=== PATIENT | female | born 1945 | race Caucasian/White ===

== ENCOUNTER 2016-05-11 14:13 | Outpatient (CLI) | payer MEDICARE, OTHER | END 2016-05-11 14:14 | disposition home or self-care (01) | DX: E11.9 Type 2 diabetes mellitus without complications (principal) ==

== ENCOUNTER 2016-06-06 13:59 | Outpatient (CLI) | payer MEDICARE, OTHER | END 2016-06-06 14:00 | disposition home or self-care (01) | DX: N39.41 Urge incontinence (principal) ==

== ENCOUNTER 2016-07-13 15:24 | Outpatient (CLI) | payer MEDICARE, OTHER | END 2016-07-13 15:25 | disposition home or self-care (01) | DX: N39.41 Urge incontinence (principal) ==

== ENCOUNTER 2016-08-24 14:07 | Outpatient (CLI) | payer MEDICARE, OTHER ==
[2016-08-24 17:30] LABS: HEMOGLOBIN A1C 0.57 g/dL
== END 2016-08-24 14:08 | disposition home or self-care (01) ==
LOC: LAB.F 14:07
PROVIDERS: ATTEND Internal Medicine
DX: E11.9 Type 2 diabetes mellitus without complications (principal)
CPT/HCPCS: 36415; 83036

== ENCOUNTER 2016-12-06 14:29 | Outpatient (CLI) | payer MEDICARE, OTHER ==
[2016-12-06 18:41] LABS: HEMOGLOBIN A1C 0.62 g/dL
[2016-12-06 18:42] LABS: BUN - BLOOD UREA NITROGEN 18 mg/dL (6-20); CALCIUM 9.8 mg/dL (8.5-10.3); CARBON DIOXIDE - CO2 27 mmol/L (21-32); CHLORIDE 104 mmol/L (101-111); CHOL/HDL RATIO 3.2 (<4.4); CHOLESTEROL 164 mg/dL; CREATININE 0.9 mg/dL (0.4-1.0); GFR - MDRD 62 (>89); GLUCOSE 98 mg/dL (70-100); HDL CHOLESTEROL 51 mg/dL; LDL/HDL RATIO 1.6 (<4.4); POTASSIUM 4.1 mmol/L (3.5-5.0); SODIUM 139 mmol/L (135-145); TRIGLYCERIDES 166 mg/dL; VLDL CHOLESTEROL 33 mg/dL
== END 2016-12-06 14:30 | disposition home or self-care (01) ==
LOC: LAB.F 14:29
PROVIDERS: ATTEND Internal Medicine
DX: E11.9 Type 2 diabetes mellitus without complications (principal); E78.00 Pure hypercholesterolemia, unspecified; E03.9 Hypothyroidism, unspecified
CPT/HCPCS: 36415; 80048; 80061; 83036; 84443

== ENCOUNTER 2017-01-11 08:00 | Outpatient (CLI) | payer MEDICARE, OTHER ==
[2017-01-11 18:01] LABS: CALCIUM 9.8 mg/dL (8.5-10.3); CREATININE 1.1 mg/dL (0.4-1.0); POTASSIUM 3.8 mmol/L (3.5-5.0)
== END 2017-01-11 08:01 | disposition home or self-care (01) ==
LOC: LAB.F 08:00
PROVIDERS: ATTEND Internal Medicine
DX: I10 Essential (primary) hypertension (principal)
CPT/HCPCS: 36415; 80048

== ENCOUNTER 2017-03-21 13:00 | Outpatient (CLI) | payer MEDICARE, OTHER | END 2017-03-21 13:01 | disposition home or self-care (01) | LOC: DI 13:00 | PROVIDERS: ATTEND Family Medicine | DX: R55 Syncope and collapse (principal) | CPT/HCPCS: 93306 ==

== ENCOUNTER 2017-10-11 08:45 | Outpatient (CLI) | payer MEDICARE, OTHER ==
[2017-10-11 09:12] LABS: BASOPHILS % (AUTO) 0.6 %; EOSINOPHILS # (AUTO) 0.2 10^3/uL (0.0-0.7); EOSINOPHILS % (AUTO) 2.2 %; HGB - HEMOGLOBIN 13.1 g/dL (12.0-16.0); LYMPHOCYTES # (AUTO) 1.8 10^3/uL (1.5-3.5); LYMPHOCYTES % (AUTO) 25.2 %; MEAN CORPUSCULAR HEMOGLOBIN 31.9 pg (27.0-31.0); MEAN CORPUSCULAR HGB CONC 32.9 g/dL (32.0-36.0); MEAN PLATELET VOLUME 9.8 fL (7.9-10.8); MONOCYTES # (AUTO) 0.5 10^3/uL (0.0-1.0); MONOCYTES % (AUTO) 6.4 %; NEUTROPHILS # (AUTO) 4.6 10^3/uL (1.5-6.6); NEUTROPHILS % (AUTO) 65.6 %; PLT - PLATELET COUNT 201 10^3/uL (130-450); RED CELL DISTRIBUTION WIDTH 14.5 % (12.0-15.0)
[2017-10-11 09:26] LABS: HB2 TOTAL 14.1 g/dL; HEMOGLOBIN A1C 0.66 g/dL; HEMOGLOBIN A1C % 6.4 % (4.6-6.2)
[2017-10-11 10:22] LABS: ALBUMIN 4.1 g/dL (3.2-5.5); ALBUMIN/GLOBULIN RATIO 1.4 (1.0-2.2); CALCIUM 9.5 mg/dL (8.5-10.3); CREATININE 0.9 mg/dL (0.4-1.0); TOTAL PROTEIN 7.1 g/dL (6.7-8.2)
== END 2017-10-11 08:46 | disposition home or self-care (01) ==
LOC: LAB 08:45
PROVIDERS: ATTEND Family Medicine
DX: I10 Essential (primary) hypertension (principal); E11.9 Type 2 diabetes mellitus without complications
CPT/HCPCS: 36415; 80053; 83036; 85025

== ENCOUNTER 2017-12-05 13:51 | Outpatient (CLI) | payer MEDICARE, OTHER ==
--- NOTE | 2017-12-06 15:57 | Mammography Report ---
Reason: SCREENING MAMMO Procedure Date: 12/05/2017 Accession Number: [id number] / [id number] Procedure: JOHN - Screening Mammo Dig Bilat CPT Code: FULL RESULT: EXAM: Screening Mammo Dig Bilat DATE: 12/05/2017 2:10 PM CLINICAL HISTORY: Screening mammogram TECHNIQUE: Bilateral CC and MLO views were obtained. COMPARISON: None FINDINGS: There are scattered fibroglandular densities. A nodule in the upper outer quadrant of the right breast is favored to represent an intramammary lymph node. No suspicious masses, clustered microcalcifications, or regions of architectural distortion are identified. IMPRESSION: Benign findings RECOMMENDATION: Routine annual screening unless otherwise clinically indicated. BIRADS CATEGORY 2: Benign findings STANDARD QUALIFYING STATEMENTS: 1. This examination was reviewed with the aid of Computer-Aided Detection (CAD). 2. A negative or benign imaging report should not delay biopsy if clinically suspicious findings are present. Consider surgical consultation if warrented. More than 5% of cancers are not identified by imaging. 3. Dense breasts may obscure an underlying neoplasm.
== END 2017-12-05 13:52 | disposition home or self-care (01) ==
LOC: DI 13:51
PROVIDERS: ATTEND Radiology Diagnostic Radiology
DX: Z12.31 Encounter for screening mammogram for malignant neoplasm of breast (principal)
CPT/HCPCS: 77067

== ENCOUNTER 2018-05-17 10:39 | Outpatient (CLI) | payer MEDICARE, OTHER ==
[2018-05-17 18:18] LABS: BASOPHILS % (AUTO) 0.6 %; EOSINOPHILS # (AUTO) 0.1 10^3/uL (0.0-0.7); EOSINOPHILS % (AUTO) 1.7 %; HGB - HEMOGLOBIN 13.8 g/dL (12.0-16.0); LYMPHOCYTES # (AUTO) 1.6 10^3/uL (1.5-3.5); LYMPHOCYTES % (AUTO) 23.4 %; MEAN CORPUSCULAR HEMOGLOBIN 32.1 pg (27.0-31.0); MEAN CORPUSCULAR HGB CONC 32.7 g/dL (32.0-36.0); MEAN PLATELET VOLUME 10.8 fL (7.9-10.8); MONOCYTES # (AUTO) 0.5 10^3/uL (0.0-1.0); MONOCYTES % (AUTO) 7.3 %; NEUTROPHILS # (AUTO) 4.7 10^3/uL (1.5-6.6); PLT - PLATELET COUNT 204 10^3/uL (130-450); RED BLOOD COUNT 4.31 10^6/uL (4.20-5.40); RED CELL DISTRIBUTION WIDTH 15.2 % (12.0-15.0)
[2018-05-17 18:56] LABS: ALBUMIN 4.5 g/dL (3.2-5.5); ALBUMIN/GLOBULIN RATIO 1.4 (1.0-2.2); ALKALINE PHOSPHATASE 52 IU/L (42-121); ALT ALANINE AMINOTRANSFERASE 25 IU/L (10-60); AST ASPARTATE AMINOTRANSFERASE 27 IU/L (10-42); BILIRUBIN,TOTAL 0.8 mg/dL (0.2-1.0); BUN - BLOOD UREA NITROGEN 17 mg/dL (6-20); CARBON DIOXIDE - CO2 30 mmol/L (21-32); CHLORIDE 103 mmol/L (101-111); CHOL/HDL RATIO 2.5 (<4.4); CHOLESTEROL 152 mg/dL; CREATININE 0.9 mg/dL (0.4-1.0); GFR - MDRD 61 (>89); GLUCOSE 111 mg/dL (70-100); HDL CHOLESTEROL 61 mg/dL; LDL CHOLESTEROL,CALCULATED 71 mg/dL; LDL/HDL RATIO 1.2 (<4.4); SODIUM 142 mmol/L (135-145); TOTAL PROTEIN 7.7 g/dL (6.7-8.2); VLDL CHOLESTEROL 20 mg/dL
[2018-05-17 20:20] LABS: HB2 TOTAL 15.2 g/dL; HEMOGLOBIN A1C 0.64 g/dL
== END 2018-05-17 10:40 | disposition home or self-care (01) ==
LOC: LAB.F 10:39
PROVIDERS: ATTEND Family Medicine
DX: I10 Essential (primary) hypertension (principal); E78.00 Pure hypercholesterolemia, unspecified; E11.9 Type 2 diabetes mellitus without complications; E03.9 Hypothyroidism, unspecified; W54.0XXA Bitten by dog, initial encounter
CPT/HCPCS: 36415; 80053; 80061; 82043; 82570; 83036; 83721; 84443; 85025

== ENCOUNTER 2018-05-21 10:18 | Outpatient (CLI) | payer MEDICARE, OTHER ==
[2018-05-21 11:02] LABS: CREATININE,URINE 46.2 mg/dL; MICROALBUM/CREATININE RATIO,UR 17.3 ug/mg (<30.0); MICROALBUMIN,URINE 0.8 mg/dL (0-300.0)
== END 2018-05-21 10:19 | disposition home or self-care (01) ==
LOC: LAB 10:18
PROVIDERS: ATTEND Family Medicine
DX: I10 Essential (primary) hypertension (principal); E78.00 Pure hypercholesterolemia, unspecified; E11.9 Type 2 diabetes mellitus without complications
CPT/HCPCS: 82043; 82570

== ENCOUNTER 2018-12-26 15:07 | Outpatient (CLI) | payer MEDICARE, OTHER ==
--- NOTE | 2018-12-27 09:29 | Mammography Report ---
Reason: SCREENING MAMMO Procedure Date: 12/26/2018 Accession Number: [id number] / [id number] Procedure: JOHN - Screening Mammo w/Wenceslao CPT Code: FULL RESULT: EXAM: Screening Mammo w/Wenceslao DATE: 12/26/2018 3:45 PM CLINICAL HISTORY: Screening. TECHNIQUE: (B) - Bilateral CC and MLO views were obtained. COMPARISON: 12/05/2017, 11/26/2014 PARENCHYMAL PATTERN: (A) - The breasts demonstrate scattered fibroglandular densities bilaterally. FINDINGS: There are no suspicious masses, calcifications, or areas of distortion. IMPRESSION: Negative examination. BI-RADS category 1. RECOMMENDATION: (ANNUAL) - Recommend routine annual screening mammography. BI-RADS CATEGORY: (1) - Negative. STANDARD QUALIFYING STATEMENTS: 1. This examination was not reviewed with the aid of Computer-Aided Detection (CAD). 2. A negative or benign imaging report should not preclude biopsy if clinically suspicious findings are present. 3. Dense breasts may obscure an underlying neoplasm. 4. This examination was reviewed with the aid of 3D breast imaging (tomosynthesis).
== END 2018-12-26 15:08 | disposition home or self-care (01) ==
LOC: DI 15:07
DX: Z12.31 Encounter for screening mammogram for malignant neoplasm of breast (principal)
CPT/HCPCS: 77063; 77067

== ENCOUNTER 2019-09-01 09:18 | Outpatient (CLI) | payer MEDICARE, OTHER ==
[2019-09-01 09:36] LABS: BASOPHILS # (AUTO) 0.1 10^3/uL (0.0-0.1); EOSINOPHILS # (AUTO) 0.2 10^3/uL (0.0-0.7); EOSINOPHILS % (AUTO) 3.4 %; HGB - HEMOGLOBIN 13.6 g/dL (12.0-16.0); LYMPHOCYTES # (AUTO) 1.8 10^3/uL (1.5-3.5); LYMPHOCYTES % (AUTO) 34.4 %; MEAN CORPUSCULAR HEMOGLOBIN 32.3 pg (27.0-31.0); MEAN CORPUSCULAR HGB CONC 32.7 g/dL (32.0-36.0); MEAN CORPUSCULAR VOLUME 98.8 fL (81.0-99.0); MEAN PLATELET VOLUME 10.7 fL (7.9-10.8); MONOCYTES # (AUTO) 0.4 10^3/uL (0.0-1.0); MONOCYTES % (AUTO) 7.8 %; NEUTROPHILS # (AUTO) 2.8 10^3/uL (1.5-6.6); NEUTROPHILS % (AUTO) 53.2 %; PLT - PLATELET COUNT 195 10^3/uL (130-450); RED BLOOD COUNT 4.21 10^6/uL (4.20-5.40); RED CELL DISTRIBUTION WIDTH 14.7 % (12.0-15.0); WHITE BLOOD COUNT 5.2 x10^3/uL (4.8-10.8)
[2019-09-01 09:56] LABS: ALBUMIN 4.2 g/dL (3.2-5.5); ALBUMIN/GLOBULIN RATIO 1.3 (1.0-2.2); ALKALINE PHOSPHATASE 48 IU/L (42-121); ALT ALANINE AMINOTRANSFERASE 31 IU/L (10-60); AST ASPARTATE AMINOTRANSFERASE 26 IU/L (10-42); BILIRUBIN,TOTAL 0.8 mg/dL (0.2-1.0); BUN - BLOOD UREA NITROGEN 17 mg/dL (6-20); CALCIUM 9.4 mg/dL (8.5-10.3); CARBON DIOXIDE - CO2 28 mmol/L (21-32); CHLORIDE 100 mmol/L (101-111); CHOL/HDL RATIO 2.8 (<4.4); CHOLESTEROL 150 mg/dL; GLUCOSE 117 mg/dL (70-100); HDL CHOLESTEROL 54 mg/dL; HEMOGLOBIN A1C 0.67 g/dL; HEMOGLOBIN A1C % 6.5 % (4.6-6.2); LDL CHOLESTEROL,CALCULATED 69 mg/dL; LDL/HDL RATIO 1.3 (<4.4); SODIUM 138 mmol/L (135-145); TOTAL PROTEIN 7.4 g/dL (6.7-8.2); VLDL CHOLESTEROL 27 mg/dL
== END 2019-09-01 09:19 | disposition home or self-care (01) ==
LOC: LAB 09:18
PROVIDERS: ATTEND Family Medicine
DX: E11.9 Type 2 diabetes mellitus without complications (principal)
CPT/HCPCS: 36415; 80053; 80061; 82043; 83036; 83721; 84443; 85025

== ENCOUNTER 2019-09-19 14:50 | Outpatient (CLI) | payer MEDICARE, OTHER ==
--- NOTE | 2019-09-19 15:42 | XRAY Report ---
PROCEDURE: Chest 2 View X-Ray INDICATIONS: CHEST PAIN, LOW BACK PAIN TECHNIQUE: 2 view(s) of the chest. COMPARISON: None. FINDINGS: Surgical changes and devices: None. Lungs and pleura: No pleural effusions or pneumothorax. Lungs are clear. Mediastinum: Mediastinal contours are normal. Heart size is normal. Bones and chest wall: No suspicious bony abnormalities. Soft tissues appear unremarkable. IMPRESSION: No acute process. Reviewed by: Gricel Saldaña MD on 09/19/2019 3:40 PM PDT Approved by: Gricel Saldaña MD on 09/19/2019 3:40 PM PDT Station ID: [id number]
--- NOTE | 2019-09-19 15:43 | XRAY Report ---
PROCEDURE: Lumbar Spine 2 View INDICATIONS: CHEST PAIN, LOW BACK PAIN TECHNIQUE: 2 views of the lumbar spine were acquired. COMPARISON: None. FINDINGS: Bones: 5 [id number] vertebrae are present. There is mild grade 1 anterolisthesis of L4 on L5. Multilevel disc space narrowing and endplate osteophyte formation. Facet hypertrophy throughout the m id and lower lumbar spine. No vertebral body compression fractures. No suspicious bony lesions. Soft tissues: Overlying bowel gas pattern is normal. No suspicious soft tissue calcifications. IMPRESSION: 1. Multilevel degenerative disc and facet disease. 2. No acute fracture. No osseous lesion. If symptoms and/or clinical suspicion for pathology continue , further assessment with repeat plain films, or advanced imaging (e.g., CT, MRI, or bone scan) is re commended for further assessment. Reviewed by: Gricel Saldaña MD on 09/19/2019 3:42 PM PDT Approved by: Gricel Saldaña MD on 09/19/2019 3:42 PM PDT Station ID: [id number]
== END 2019-09-19 14:51 | disposition home or self-care (01) ==
LOC: DI 14:50
PROVIDERS: ATTEND Family Medicine
DX: M51.36 Other intervertebral disc degeneration, lumbar region (principal); R07.9 Chest pain, unspecified
CPT/HCPCS: 71046; 72100

== ENCOUNTER 2019-10-17 15:50 | Outpatient (CLI) | payer MEDICARE, OTHER ==
--- NOTE | 2019-10-17 17:19 | MRI Report ---
PROCEDURE: Brain W/O INDICATIONS: TREMOR TECHNIQUE: Noncontrast axial T1 spin echo, axial T2 fast spin echo, sagittal and axial FLAIR, coronal T2 fast sp in echo, axial gradient echo, axial diffusion and ADC through the brain. COMPARISON: None. FINDINGS: Image quality: Excellent. CSF Spaces: Basal cisterns are patent. No extra-axial fluid collections. Ventricles are normal in size and shape. Brain: No intracranial masses or hemorrhage. Alvarez/white matter interface is normal. Brainstem appe ars normal. Diffusion-weighted images demonstrate no acute ischemic insult. No chronic ischemic ins ults. Normal intravascular flow voids are present. Skull and face: Calvarium has normal marrow signal. Orbits appear normal. There is a well-circumsc ribed bilobular 20 mm low T2 intensity focus within the subcutaneous fat of the left superior parieta l scalp, consistent with a mild diffuse cerebral volume loss. Sebaceous cyst. Sinuses: Sinuses and mastoids are clear. IMPRESSION: 1. Mild diffuse cerebral volume loss. 2. No acute process. No recent infarct. Reviewed by: Gricel Saldaña MD on 10/17/2019 4:17 PM AKDT Approved by: Gricel Saldaña MD on 10/17/2019 4:17 PM AKDT Station ID: [id number]
== END 2019-10-17 15:51 | disposition home or self-care (01) ==
LOC: DI 15:50
PROVIDERS: ATTEND Psychiatry & Neurology Neurology
DX: R25.1 Tremor, unspecified (principal)
CPT/HCPCS: 70551

== ENCOUNTER 2019-11-10 16:48 | Outpatient (CLI) | payer MEDICARE, OTHER ==
--- NOTE | 2019-11-10 18:16 | MRI Report ---
PROCEDURE: Cervical Spine W/O INDICATIONS: PARESTHESIA OF SKIN TECHNIQUE: Noncontrast sagittal T1 spin echo and T2 fast spin echo, sagittal STIR, foraminal oblique sagittal T2 fast spin echo, and axial gradient echo or T2 fast spin echo through the cervical spine. COMPARISON: Correlation is made with overlapping portions of brain MRI 10/17/2019. FINDINGS: Image quality: Motion artifact is noted. Alignment and Curvature: There is overall straightening of the normal cervical lordosis. Bone Marrow: Marrow demonstrates normal overall signal. Spinal Cord: Visualized spinal cord has normal size and signal. No cerebellar tonsillar herniation. Paraspinous Soft Tissues: No paravertebral masses. Prevertebral soft tissues are normal in thicknes s. Left thyroid nodules are incidentally noted, with the largest measuring 12 mm, as on series 601 im age 1. C2-C3: No significant abnormality is seen. C3-C4: The disc height is well-preserved. There is loss of disc signal seen. Mild disc osteophy te complex is seen. There is mild right-sided and prominent left-sided facet hypertrophy seen. Ther e is moderate to severe left-sided and mild right-sided neuroforaminal narrowing seen. Mild central canal narrowing is seen. C4-C5: Mild loss of disc height and disc signal are seen. Mild to moderate disc osteophyte complex i s seen. There is mild right-sided and moderate to prominent left-sided facet hypertrophy seen. There is mild left-sided and [id number] right-sided neuroforaminal narrowing seen. Mild to moderate c entral canal narrowing is seen. C5-C6: Mild to moderate loss of disc height and disc signal are seen. Bridging anterior osteophytes are seen. Moderate to prominent disc osteophyte complex is seen, with a central/right disc osteophy te protrusion, as on series 601 images 12 and 13. There is associated moderate to severe central fani l narrowing seen, with ventral cord flattening. Moderate to severe bilateral neuroforaminal narrowing is also seen at this level. C6-C7: Mild loss of disc height and disc signal are seen. Bridging anterior osteophytes are seen. M oderate to prominent disc osteophyte complex is seen, which is eccentric to the left. There is a cent ral disc osteophyte protrusion seen, severe central canal narrowing and ventral cord flattening, as o n series 701 image 9 and on series 601 image 9. Mild facet hypertrophy is seen. Moderate to severe bilateral neuroforaminal narrowing is seen. C7-T1: The disc height is well-preserved. There is loss of disc signal seen. Mild disc osteophyte co mplex is seen, which is slightly eccentric to the right. Mild to moderate facet hypertrophy is seen. There is moderate bilateral neuroforaminal narrowing seen. Mild central canal narrowing is seen. IMPRESSION: Multiple levels of cervical spine degenerative change are seen, which are most prominent at the C6-C7 level, where there is moderate to severe bilateral neuroforaminal narrowing and severe central canal narrowing present. Incidental note is made of a left-sided thyroid nodules. If clinically appropriate, please consider a dedicated thyroid ultrasound for further evaluation. Reviewed by: Isaiah Britton MD on 11/10/2019 5:15 PM MARQUES Approved by: Isaiah Britton MD on 11/10/2019 5:15 PM MARQUES Station ID: [id number]
== END 2019-11-10 16:49 | disposition home or self-care (01) ==
LOC: DI 16:48
PROVIDERS: ATTEND Psychiatry & Neurology Neurology
DX: M50.31 Other cervical disc degeneration, high cervical region (principal); M47.812 Spondylosis without myelopathy or radiculopathy, cervical region; M48.02 Spinal stenosis, cervical region; M25.78 Osteophyte, vertebrae
CPT/HCPCS: 72141

== ENCOUNTER 2019-11-11 12:26 | Outpatient (CLI) | payer MEDICARE, OTHER ==
[2019-11-11 12:53] LABS: BASOPHILS # (AUTO) 0.1 10^3/uL (0.0-0.1); BASOPHILS % (AUTO) 0.8 %; EOSINOPHILS # (AUTO) 0.4 10^3/uL (0.0-0.7); EOSINOPHILS % (AUTO) 5.6 %; HGB - HEMOGLOBIN 13.6 g/dL (12.0-16.0); LYMPHOCYTES # (AUTO) 2.2 10^3/uL (1.5-3.5); LYMPHOCYTES % (AUTO) 30.3 %; MEAN CORPUSCULAR HGB CONC 33.6 g/dL (32.0-36.0); MEAN CORPUSCULAR VOLUME 98.3 fL (81.0-99.0); MEAN PLATELET VOLUME 10.9 fL (7.9-10.8); MONOCYTES # (AUTO) 0.5 10^3/uL (0.0-1.0); MONOCYTES % (AUTO) 7.4 %; NEUTROPHILS % (AUTO) 55.6 %; PLT - PLATELET COUNT 226 10^3/uL (130-450); RED BLOOD COUNT 4.12 10^6/uL (4.20-5.40); RED CELL DISTRIBUTION WIDTH 14.8 % (12.0-15.0); WHITE BLOOD COUNT 7.2 x10^3/uL (4.8-10.8)
[2019-11-11 12:58] LABS: INR 1.1 (0.8-1.2); PT - PROTHROMBIN TIME 12.2 secs (9.9-12.6)
[2019-11-11 13:02] LABS: CALCIUM 9.6 mg/dL (8.5-10.3)
== END 2019-11-11 12:27 | disposition home or self-care (01) ==
LOC: LAB 12:26
PROVIDERS: ATTEND Internal Medicine Cardiovascular Disease
DX: R07.9 Chest pain, unspecified (principal); R94.39 Abnormal result of other cardiovascular function study
CPT/HCPCS: 36415; 80048; 85025; 85610

== ENCOUNTER 2019-11-17 10:57 | Outpatient (CLI) | payer MEDICARE, OTHER ==
[2019-11-17 11:20] LABS: CALCIUM 9.9 mg/dL (8.5-10.3)
== END 2019-11-17 10:58 | disposition home or self-care (01) ==
LOC: LAB 10:57
PROVIDERS: ATTEND Family Medicine
DX: I10 Essential (primary) hypertension (principal)
CPT/HCPCS: 36415; 80048

== ENCOUNTER 2020-01-02 14:53 | Outpatient (CLI) | payer MEDICARE, OTHER ==
--- NOTE | 2020-01-02 17:38 | Ultrasound Report ---
PROCEDURE: Head or Neck Soft Tissue INDICATIONS: THYROID NODULE TECHNIQUE: Real-time scanning was performed of the thyroid gland, with image documentation. COMPARISON: None FINDINGS: Right: Thyroid lobe measures 6.7 x 1.8 x 1.5 cm, and is homogeneous in echotexture. Left: Thyroid lobe measures 6.5 x 2.5 x 2.1 cm, and is homogenous in echotexture. Isthmus: 6 mm thick. Nodule number: One Location: Right lobe Size: 0.8 x 0.7 x 0.7 cm. Composition: Solid Echogenicity: Isoechoic Shape: wider than tall. Margins: Smooth Echogenic foci: None Total points: 3 ACR TI-RADS category: 3 Nodule number: Two Location: Left lobe Size: 1.5 x 1.0 x 1.3 cm. Composition: Solid Echogenicity: Hypoechoic Shape: wider than tall. Margins: Smooth Echogenic foci: None Total points: 4 ACR TI-RADS category: 4 Nodule number: Three Location: Left lobe Size: 2.1 x 1.4 x 2.2 cm. Composition: Solid Echogenicity: Isoechoic Shape: wider than tall. Margins: Smooth Echogenic foci: None Total points: 3 ACR TI-RADS category: 3 IMPRESSION: 1. Right thyroid lobe subcentimeter TI RADS 3 lesion. Mildly suspicious. No follow-up recommended giv en small size. 2. Left thyroid lobe TI RADS 4 lesion. Moderately suspicious. FNA recommended given size at 1.5 cm. 3. Left thyroid lobe TI RADS 4 lesion. Moderately suspicious. FNA recommended given size at 2.2 cm. ACR TI-RADS definitions and recommendations: TI-RADS 1 (benign): 0 points. FNA not needed. TI-RADS 2 (not suspicious): 2 points. FNA not needed. TI-RADS 3 (mildly suspicious): 3 points. ? FNA if 2.5 cm or larger, follow up if 1.5 cm or larger (at 1, 3, and 5 years). TI-RADS 4 (moderately suspicious): 4-6 points. ? FNA if 1.5 cm or larger, follow up if 1 cm or larger (at 1, 2, 3, and 5 years). TI-RADS 5 (highly suspicious): 7 points or more. ? FNA if 1 cm or larger, follow up if 0.5 cm or larger (every year for 5 years). Reviewed by: Rhea Stovall MD on 01/02/2020 5:36 PM PDT Approved by: Rhea Stovall MD on 01/02/2020 5:36 PM PDT Station ID: [id number]
== END 2020-01-02 14:54 | disposition home or self-care (01) ==
LOC: DI 14:53
PROVIDERS: ATTEND Family Medicine
DX: E04.2 Nontoxic multinodular goiter (principal)
CPT/HCPCS: 76536

== ENCOUNTER 2020-01-27 08:00 | Outpatient (CLI) | payer MEDICARE, OTHER ==
[2020-01-27 18:04] LABS: CALCIUM 9.7 mg/dL (8.5-10.3); CREATININE 1.1 mg/dL (0.4-1.0)
== END 2020-01-27 08:01 | disposition home or self-care (01) ==
LOC: LAB.WCP 08:00
PROVIDERS: ATTEND Family Medicine
DX: I10 Essential (primary) hypertension (principal)
CPT/HCPCS: 36415; 80048

== ENCOUNTER 2020-07-15 09:52 | Outpatient (CLI) | payer MEDICARE, OTHER ==
[2020-07-15 10:18] LABS: BASOPHILS # (AUTO) 0.1 10^3/uL (0.0-0.1); BASOPHILS % (AUTO) 0.8 %; EOSINOPHILS # (AUTO) 0.2 10^3/uL (0.0-0.7); EOSINOPHILS % (AUTO) 3.2 %; HCT - HEMATOCRIT 37.9 % (37.0-47.0); HGB - HEMOGLOBIN 12.4 g/dL (12.0-16.0); LYMPHOCYTES # (AUTO) 1.7 10^3/uL (1.5-3.5); MEAN CORPUSCULAR HEMOGLOBIN 32.9 pg (27.0-31.0); MEAN CORPUSCULAR HGB CONC 32.7 g/dL (32.0-36.0); MEAN CORPUSCULAR VOLUME 100.5 fL (81.0-99.0); MEAN PLATELET VOLUME 10.7 fL (7.9-10.8); MONOCYTES # (AUTO) 0.5 10^3/uL (0.0-1.0); MONOCYTES % (AUTO) 7.5 %; NEUTROPHILS # (AUTO) 3.6 10^3/uL (1.5-6.6); NEUTROPHILS % (AUTO) 60.3 %; PLT - PLATELET COUNT 204 10^3/uL (130-450); RED BLOOD COUNT 3.77 10^6/uL (4.20-5.40); RED CELL DISTRIBUTION WIDTH 14.6 % (12.0-15.0)
[2020-07-15 10:36] LABS: ALBUMIN 4.4 g/dL (3.2-5.5); ALBUMIN/GLOBULIN RATIO 1.5 (1.0-2.2); ALKALINE PHOSPHATASE 49 IU/L (42-121); ALT ALANINE AMINOTRANSFERASE 26 IU/L (10-60); AST ASPARTATE AMINOTRANSFERASE 24 IU/L (10-42); BILIRUBIN,TOTAL 0.9 mg/dL (0.2-1.0); BUN - BLOOD UREA NITROGEN 19 mg/dL (6-20); CALCIUM 9.8 mg/dL (8.5-10.3); CARBON DIOXIDE - CO2 25 mmol/L (21-32); CHLORIDE 102 mmol/L (101-111); CHOL/HDL RATIO 2.7 (<4.4); CHOLESTEROL 134 mg/dL; CREATININE 1.2 mg/dL (0.4-1.0); GFR - MDRD 44 (>89); GLUCOSE 110 mg/dL (70-100); HDL CHOLESTEROL 49 mg/dL; LDL CHOLESTEROL,CALCULATED 69 mg/dL; LDL/HDL RATIO 1.4 (<4.4); POTASSIUM 4.5 mmol/L (3.5-5.0); SODIUM 138 mmol/L (135-145); TOTAL PROTEIN 7.3 g/dL (6.7-8.2); TRIGLYCERIDES 82 mg/dL; VLDL CHOLESTEROL 16 mg/dL
[2020-07-15 10:37] LABS: ESTIMATED AVERAGE GLUCOSE 128 mg/dL (70-100); HEMOGLOBIN A1c% 6.1 % (4.27-6.07)
[2020-07-15 10:39] LABS: CREATININE,URINE 84.4 mg/dL; MICROALBUM/CREATININE RATIO,UR 30.8 ug/mg (<30.0); MICROALBUMIN,URINE 2.6 mg/dL (0-300.0)
[2020-07-15 10:49] LABS: THYROID STIMULATING HORMONE 2.41 uIU/mL (0.34-5.60)
== END 2020-07-15 09:53 | disposition home or self-care (01) ==
LOC: LAB 09:52
PROVIDERS: ATTEND Family Medicine
DX: I10 Essential (primary) hypertension (principal); E78.5 Hyperlipidemia, unspecified; E11.9 Type 2 diabetes mellitus without complications; E03.9 Hypothyroidism, unspecified
CPT/HCPCS: 36415; 80053; 80061; 82043; 82570; 83036; 83721; 84443; 85025

== ENCOUNTER 2020-09-14 13:01 | Outpatient (CLI) | payer MEDICARE, OTHER ==
--- NOTE | 2020-09-15 13:24 | Mammography Report ---
BILATERAL DIGITAL SCREENING MAMMOGRAM 3D/2D: 09/14/2020 CLINICAL: Routine screening. Comparison is made to exams dated: 12/26/2018 mammogram, 12/05/2017 mammogram, and 12/20/2015 mammogram - [facility]. There are scattered fibroglandular elements in both breasts. No significant masses, calcifications, or other findings are seen in either breast. There has been no significant interval change. IMPRESSION: NEGATIVE There is no mammographic evidence of malignancy. A 1 year screening mammogram is recommended. This exam was interpreted at Station ID: [id number]. NOTE: For mammograms, a report in lay terms will be sent to the patient. Approximately 15% of breast malignancies will not be visualized mammographically. In the management of a palpable breast mass, a negative mammogram must not discourage biopsy of a clinically suspicious lesion. Electronically Signed By: Edin Marte M.D. ar/vyrad:09/14/2020 13:39:11 ACR BI-RADS Category 1: Negative [id number] PARENCHYMAL PATTERN: (A) - The breast(s) demonstrate(s) scattered fibroglandular densities. BI-RADS CATEGORY: (1) - 1 RECOMMENDATION: (ANNUAL) - Recommend routine annual screening mammography. [id number] 1 year screening LATERALITY: (B)
== END 2020-09-14 13:02 | disposition home or self-care (01) ==
LOC: DI 13:01
DX: Z12.31 Encounter for screening mammogram for malignant neoplasm of breast (principal)

== ENCOUNTER 2020-10-04 08:00 | Outpatient (CLI) | payer MEDICARE, OTHER | END 2020-10-04 23:59 | disposition home or self-care (01) | LOC: LAB.S 08:00 | PROVIDERS: ATTEND Physician Assistant | DX: R31.9 Hematuria, unspecified (principal) | CPT/HCPCS: 87077; 87086; 87181 ==

== ENCOUNTER 2021-01-06 10:12 | Outpatient (CLI) | payer MEDICARE, OTHER ==
[2021-01-06 14:44] LABS: BASOPHILS % (AUTO) 0.5 %; EOSINOPHILS # (AUTO) 0.1 10^3/uL (0.0-0.7); EOSINOPHILS % (AUTO) 1.5 %; HCT - HEMATOCRIT 39.5 % (37.0-47.0); HGB - HEMOGLOBIN 12.8 g/dL (12.0-16.0); LYMPHOCYTES # (AUTO) 1.7 10^3/uL (1.5-3.5); LYMPHOCYTES % (AUTO) 23.7 %; MEAN CORPUSCULAR HEMOGLOBIN 32.3 pg (27.0-31.0); MEAN CORPUSCULAR HGB CONC 32.4 g/dL (32.0-36.0); MEAN CORPUSCULAR VOLUME 99.7 fL (81.0-99.0); MONOCYTES # (AUTO) 0.4 10^3/uL (0.0-1.0); PLT - PLATELET COUNT 213 10^3/uL (130-450); RED BLOOD COUNT 3.96 10^6/uL (4.20-5.40); RED CELL DISTRIBUTION WIDTH 15.4 % (12.0-15.0); WHITE BLOOD COUNT 7.3 x10^3/uL (4.8-10.8)
[2021-01-06 15:12] LABS: ALBUMIN 4.4 g/dL (3.2-5.5); ALBUMIN/GLOBULIN RATIO 1.5 (1.0-2.2); ALKALINE PHOSPHATASE 55 IU/L (42-121); ALT ALANINE AMINOTRANSFERASE 26 IU/L (10-60); AST ASPARTATE AMINOTRANSFERASE 24 IU/L (10-42); BILIRUBIN,TOTAL 0.8 mg/dL (0.2-1.0); BUN - BLOOD UREA NITROGEN 21 mg/dL (6-20); CALCIUM 9.9 mg/dL (8.5-10.3); CARBON DIOXIDE - CO2 28 mmol/L (21-32); CHLORIDE 101 mmol/L (101-111); CHOL/HDL RATIO 2.8 (<4.4); CHOLESTEROL 138 mg/dL; CREATININE 1.1 mg/dL (0.4-1.0); GFR - MDRD 48 (>89); GLUCOSE 108 mg/dL (70-100); HDL CHOLESTEROL 50 mg/dL; LDL CHOLESTEROL,CALCULATED 71 mg/dL; LDL/HDL RATIO 1.4 (<4.4); POTASSIUM 4.2 mmol/L (3.5-5.0); SODIUM 139 mmol/L (135-145); TOTAL PROTEIN 7.4 g/dL (6.7-8.2); TRIGLYCERIDES 83 mg/dL; VLDL CHOLESTEROL 17 mg/dL
[2021-01-06 15:17] LABS: THYROID STIMULATING HORMONE 2.21 uIU/mL (0.34-5.60)
[2021-01-06 20:51] LABS: ESTIMATED AVERAGE GLUCOSE 123 mg/dL (70-100); HEMOGLOBIN A1c% 5.9 % (4.27-6.07)
== END 2021-01-06 10:13 | disposition home or self-care (01) ==
LOC: LAB.S 10:12
PROVIDERS: ATTEND Family Medicine
DX: E11.9 Type 2 diabetes mellitus without complications (principal); E03.9 Hypothyroidism, unspecified
CPT/HCPCS: 36415; 80053; 80061; 82607; 83036; 83721; 84443; 85025

== ENCOUNTER 2021-05-12 08:00 | Outpatient (CLI) | payer MEDICARE, OTHER | END 2021-05-12 23:59 | disposition home or self-care (01) | LOC: LAB.WCP 08:00 | PROVIDERS: ATTEND Nurse Practitioner Family | DX: L72.11 Pilar cyst (principal) | CPT/HCPCS: 87070; 87077; 87181; 87205 ==

== ENCOUNTER 2021-07-09 09:42 | Outpatient (CLI) | payer MEDICARE, OTHER ==
[2021-07-09 15:32] LABS: BASOPHILS % (AUTO) 0.8 %; EOSINOPHILS # (AUTO) 0.2 10^3/uL (0.0-0.7); EOSINOPHILS % (AUTO) 3.5 %; HCT - HEMATOCRIT 37.3 % (37.0-47.0); HGB - HEMOGLOBIN 12.2 g/dL (12.0-16.0); LYMPHOCYTES # (AUTO) 1.7 10^3/uL (1.5-3.5); LYMPHOCYTES % (AUTO) 35.8 %; MEAN CORPUSCULAR HEMOGLOBIN 32.4 pg (27.0-31.0); MEAN CORPUSCULAR HGB CONC 32.7 g/dL (32.0-36.0); MEAN CORPUSCULAR VOLUME 98.9 fL (81.0-99.0); MEAN PLATELET VOLUME 11.7 fL (7.9-10.8); MONOCYTES # (AUTO) 0.3 10^3/uL (0.0-1.0); NEUTROPHILS # (AUTO) 2.6 10^3/uL (1.5-6.6); NEUTROPHILS % (AUTO) 52.9 %; PLT - PLATELET COUNT 228 10^3/uL (130-450); RED BLOOD COUNT 3.77 10^6/uL (4.20-5.40); RED CELL DISTRIBUTION WIDTH 14.8 % (12.0-15.0); WHITE BLOOD COUNT 4.9 x10^3/uL (4.8-10.8)
[2021-07-09 15:58] LABS: ALBUMIN 4.1 g/dL (3.2-5.5); ALBUMIN/GLOBULIN RATIO 1.5 (1.0-2.2); ALKALINE PHOSPHATASE 46 IU/L (42-121); ALT ALANINE AMINOTRANSFERASE 25 IU/L (10-60); AST ASPARTATE AMINOTRANSFERASE 24 IU/L (10-42); BILIRUBIN,TOTAL 0.5 mg/dL (0.2-1.0); BUN - BLOOD UREA NITROGEN 23 mg/dL (6-20); CALCIUM 9.7 mg/dL (8.5-10.3); CARBON DIOXIDE - CO2 27 mmol/L (21-32); CHLORIDE 100 mmol/L (101-111); CHOLESTEROL 164 mg/dL; CREATININE 1.1 mg/dL (0.4-1.0); GFR - MDRD 48 (>89); GLUCOSE 108 mg/dL (70-100); HDL CHOLESTEROL 54 mg/dL; LDL CHOLESTEROL,CALCULATED 86 mg/dL; LDL/HDL RATIO 1.6 (<4.4); POTASSIUM 4.3 mmol/L (3.5-5.0); SODIUM 136 mmol/L (135-145); TOTAL PROTEIN 6.9 g/dL (6.7-8.2); TRIGLYCERIDES 120 mg/dL; VLDL CHOLESTEROL 24 mg/dL
[2021-07-09 16:50] LABS: THYROID STIMULATING HORMONE 2.96 uIU/mL (0.34-5.60)
== END 2021-07-09 09:43 | disposition home or self-care (01) ==
LOC: LAB.S 09:42
PROVIDERS: ATTEND Nurse Practitioner Family
DX: I10 Essential (primary) hypertension (principal); E78.5 Hyperlipidemia, unspecified; E11.9 Type 2 diabetes mellitus without complications; E03.9 Hypothyroidism, unspecified
CPT/HCPCS: 36415; 80053; 80061; 81599; 83036; 83721; 84443; 85025

== ENCOUNTER 2021-09-26 13:29 | Inpatient (IN) | payer MEDICARE, OTHER ==
[2021-09-26 14:13] LABS: BASOPHILS # (AUTO) 0.1 10^3/uL (0.0-0.1); BASOPHILS % (AUTO) 0.6 %; EOSINOPHILS # (AUTO) 0.5 10^3/uL (0.0-0.7); EOSINOPHILS % (AUTO) 5.2 %; HCT - HEMATOCRIT 29.5 % (37.0-47.0); HGB - HEMOGLOBIN 10.3 g/dL (12.0-16.0); LYMPHOCYTES % (AUTO) 11.7 %; MEAN CORPUSCULAR HGB CONC 34.9 g/dL (32.0-36.0); MEAN CORPUSCULAR VOLUME 91.6 fL (81.0-99.0); MEAN PLATELET VOLUME 9.7 fL (7.9-10.8); MONOCYTES # (AUTO) 0.8 10^3/uL (0.0-1.0); MONOCYTES % (AUTO) 8.6 %; NEUTROPHILS # (AUTO) 6.6 10^3/uL (1.5-6.6); NEUTROPHILS % (AUTO) 73.5 %; PLT - PLATELET COUNT 265 10^3/uL (130-450); RED BLOOD COUNT 3.22 10^6/uL (4.20-5.40); WHITE BLOOD COUNT 8.9 x10^3/uL (4.8-10.8)
--- NOTE | 2021-09-26 14:22 | XRAY Report ---
PROCEDURE: Ribs w/PA Chest LT INDICATIONS: pain to left side ribs TECHNIQUE: 3 views of the left ribs were acquired, along with a single view chest. COMPARISON: None FINDINGS: Surgical changes and devices: None. Bones and chest wall: No fractures or dislocations. No suspicious bony lesions. Overlying soft tis sues appear unremarkable. Lungs and pleura: No pleural effusions or pneumothorax. Lungs appear clear. Mediastinum: Mediastinal contours appear normal. Heart size is normal. IMPRESSION: No gross displaced left rib fracture is seen. No acute cardiopulmonary pathology. Reviewed by: Noble Longoria MD on 09/26/2021 2:21 PM PDT Approved by: Noble Longoria MD on 09/26/2021 2:21 PM PDT Station ID: [id number]
[2021-09-26 14:39] LABS: ALBUMIN 3.5 g/dL (3.2-5.5); ALBUMIN/GLOBULIN RATIO 1.1 (1.0-2.2); BILIRUBIN,TOTAL 0.6 mg/dL (0.2-1.0); CALCIUM 9.4 mg/dL (8.5-10.3); CREATININE 1.1 mg/dL (0.4-1.0); POTASSIUM 5.2 mmol/L (3.5-5.0); TOTAL PROTEIN 6.8 g/dL (6.7-8.2)
[2021-09-26] MEDS ORDERED: SODIUM CHLORIDE 0.9% 1,000 ML IV STA ×2 (15:23)
--- NOTE | 2021-09-26 15:31 | ED Physician Documentation ---
History of Present Illness - Stated complaint Stated Complaint: GLF - Chief complaint Chief Complaint: Trauma Ch/Bk - History obtained from History obtained from: Patient - History of Present Illness Timing: Last night Pain level max: 6 Pain level now: 5 - Additonal information Additional information: Patient is a 76-year-old female who presents to the emergency department feeling lightheaded and dizzy for the past several days. She is on spironolactone at home for hypertension and recently had this doubled. No chest pain. No shortness of breath. No headache. No neck pain. No numbness or tingling. She states she has just felt "off". No fevers. No chills. No abdominal pain. c/o pain to the L posterior ribs Review of Systems Ten Systems: 10 systems reviewed and negative Constitutional: denies: Fever, Chills Respiratory: denies: Dyspnea, Cough GI: denies: Nausea, Vomiting, Diarrhea Skin: denies: Rash Musculoskeletal: denies: Neck pain, Back pain Neurologic: denies: Headache PD PAST MEDICAL HISTORY - Past Medical History Cardiovascular: Hypertension, High cholesterol Respiratory: Sleep apnea Endocrine/Autoimmune: Type 2 diabetes, HyPOthyroidism GI: Colon polyps : None HEENT: Other Psych: Depression, Anxiety, Claustrophobia Musculoskeletal: Fibromyalgia Derm: Other - Past Surgical History General: Colonoscopy Ortho: Carpal Tunnel surgery, 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 HEENT: Cataracts, Other - Present Medications Home Medications: Ambulatory Orders Medication Instructions Recorded Confirmed Aspirin [Adult Low Dose Aspirin EC] 1 tab ORAL DAILY 01/06/14 01/06/14 Chlorthalidone 0.5 tab ORAL DAILY 01/06/14 01/06/14 Fluconazole [Diflucan] 1 tab ORAL DAILY 01/06/14 01/06/14 Fluticasone [Flonase] 1 spray ANNA BID 01/06/14 01/06/14 Gabapentin 600 mg ORAL DAILY 01/06/14 01/06/14 Levothyroxine [Synthroid] 1 tab ORAL DAILY 01/06/14 01/06/14 Lisinopril/Hydrochlorothiazide 1 tab ORAL DAILY 01/06/14 01/06/14 [Lisinopril-Hctz 10-12.5 mg Tab] Lovastatin 1 tab ORAL DAILY 01/06/14 01/06/14 Metformin HCl [Glucophage] 1,000 mg ORAL BID 01/06/14 01/06/14 Multivitamin [Multi Vitamin Daily] 1 tab ORAL DAILY 01/06/14 01/06/14 - Allergies Allergies/Adverse Reactions: Allergies Allergy/AdvReac Type Severity Reaction Status Date / Time latex Allergy Mild Rash Verified 09/26/21 16:47 pollen extracts Allergy Mild Respiratory Verified 09/26/21 16:47 Sulfa (Sulfonamide Allergy Mild Rash Verified 01/06/14 13:33 Antibiotics) PD ED PE NORMAL - Vitals Vital signs reviewed: Yes - General General: Alert and oriented X 3, No acute distress - HEENT HEENT: PERRL, Moist mucous membranes - Neck Neck: Supple, no meningeal sign - Cardiac Cardiac: RRR - Respiratory Respiratory: No respiratory distress, Clear bilaterally - Abdomen Abdomen: Soft, Non tender, Non distended - Back Back: No CVA TTP, No spinal TTP - Derm Derm: Warm and dry - Extremities Extremities: No edema - Neuro Neuro: Alert and oriented X 3, community health coordinator 2-12 intact, No motor deficit, No sensory deficit, Normal speech Eye Opening: Spontaneous Motor: Obeys Commands Verbal: Oriented GCS Score: 15 - Psych Psych: Normal mood, Normal affect Results - Vitals Vitals: Vital Signs - 24 hr 09/26/21 09/26/21 13:34 13:39 Temperature 37.3 C 37.3 C Heart Rate 63 63 Respiratory 19 19 Rate Blood Pressure 168/78 H 168/78 H O2 Saturation 98 98 Oxygen O2 Source Room air - Labs Labs: Laboratory Tests 09/26/21 09/26/21 09/26/21 13:46 14:05 14:05 WBC 8.9 RBC 3.22 L Hgb 10.3 L Hct 29.5 L MCV 91.6 MCH 32.0 H MCHC 34.9 RDW 14.0 Plt Count 265 MPV 9.7 Neut # (Auto) 6.6 Lymph # (Auto) 1.0 L Wayne # (Auto) 0.8 Eos # (Auto) 0.5 Baso # (Auto) 0.1 Absolute Nucleated RBC 0.00 Nucleated RBC % 0.0 Sodium 122 L Potassium 5.2 H Chloride 89 L Carbon Dioxide 24 Anion Gap 9.0 BUN 24 H Creatinine 1.1 H Estimated GFR (MDRD) 48 L Glucose 126 H POC Whole Bld Glucose 128 H Calcium 9.4 Total Bilirubin 0.6 AST 25 ALT 24 Alkaline Phosphatase 51 Troponin I High Sens Total Protein 6.8 Albumin 3.5 Globulin 3.3 Albumin/Globulin Ratio 1.1 Lipase 40 Urine Color Urine Clarity Urine pH Ur Specific [place] Urine Protein Urine Glucose (UA) Urine Ketones Urine Occult Blood Urine Nitrite Urine Bilirubin Urine Urobilinogen Ur Leukocyte Esterase Ur Microscopic Review Urine Culture Comments 09/26/21 09/26/21 14:05 14:05 WBC RBC Hgb Hct MCV MCH MCHC RDW Plt Count MPV Neut # (Auto) Lymph # (Auto) Wayne # (Auto) Eos # (Auto) Baso # (Auto) Absolute Nucleated RBC Nucleated RBC % Sodium Potassium Chloride Carbon Dioxide Anion Gap BUN Creatinine Estimated GFR (MDRD) Glucose POC Whole Bld Glucose Calcium Total Bilirubin AST ALT Alkaline Phosphatase Troponin I High Sens 3.5 Total Protein Albumin Globulin Albumin/Globulin Ratio Lipase Urine Color YELLOW Urine Clarity CLEAR Urine pH 5.5 Ur Specific [place] 1.020 Urine Protein NEGATIVE Urine Glucose (UA) NEGATIVE Urine Ketones NEGATIVE Urine Occult Blood TRACE-INTA Urine Nitrite NEGATIVE Urine Bilirubin NEGATIVE Urine Urobilinogen 0.2 (NORMAL) Ur Leukocyte Esterase NEGATIVE Ur Microscopic Review NOT INDICATED Urine Culture Comments NOT INDICATED - Rads (name of study) ribs with cxr Radiology: Final report received, EMP read contemporaneously, See rad report (No gross displaced left rib fracture is seen. No acute cardiopulmonary pathology. ) PD MEDICAL DECISION MAKING - ED course Complexity details: reviewed results, re-evaluated patient, considered differential, d/w patient, d/w family ED course: 76-year-old female found to be hyponatremic. Her baseline sodium is normally around 140. She is down to 122 today. Likely secondary to the doubling of her spironolactone. No seizures. No altered mental status. We will place in observation for gentle rehydration and to ensure her sodium corrects. Discussed the case with Dr. Clemente, hospitalist accepts This document was made in part using voice recognition software. While efforts are made to proofread this document, sound alike and grammatical errors may occur. Departure - Departure Disposition: ED Place in Observation Clinical Impression: Hyponatremia, Hypochloremia, Dehydration Fall Qualifiers: Encounter type: initial encounter Qualified Code(s): W19.XXXA - Unspecified fall, initial encounter Low back pain Qualifiers: Chronicity: acute Back pain laterality: bilateral Sciatica presence: without sciatica Qualified Code(s): M54.50 - Low back pain, unspecified Condition: Stable Discharge Date/Time: 09/26/21 17:01
[2021-09-26] MEDS ORDERED: SODIUM CHLORIDE FLUSH 0.9% 10 ML SYRINGE IVP PRN (15:37)
[2021-09-26] MEDS ORDERED: ONDANSETRON 4 MG/2 ML VIAL IVP PRN (15:37)
--- NOTE | 2021-09-26 15:46 | HISTORY & PHYSICAL EXAMINATION ---
Chief Complaint - Chief Complaint Chief Complaint: near syncope History of Present Illness - Admitted From Admitted From:: [facility] ED - History Obtained From Records Reviewed: yes History obtained from: patient Exam Limitations: none - History of Present Illness HPI Comment/Other: Patient is a 76-year-old female who presented to the ED after a fall last night. She had been sitting on the couch talking to her daughter on the phone. She woke up to go to bed, turned off the fireplace then fell backwards. She is u nable to explain further the sequence of events that led to her fall because she says it happened very fast. She did not hit her head or blackout. She fell onto her left back/side. She took 2 ibuprofen and went to bed. This morning she came to the ED for evaluation because of pain on the left side. She also reported feeling dizzy and weak for 1 week. Work-up in the ED included x-rays Ribs with chest which were unremarkable. However she was noted to have a sodium level of 122 and potassium of 5.2. She is on lisinopril/hydrochlorothiazide combination and chlorthalidone. As a result of her sodium level she was presented for admission for further hydration. At bedside she denies chest pain, dyspnea, abdominal pain, nausea, vomiting or fever. She reported being very cold last night despite a temperature of 72 degrees in her house. Rest of history was unremarkable. 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 Her mother from metastatic breast cancer at age 64. She also had hypertension. Social History Notes: She does not use tobacco products, or recreational substances. She occasionally drinks alcohol. She lives at home with her daughter. She is independent of activities of daily living. - POLST Patient has POLST: No POLST Status: Full Code Meds/Allgy - Home Medications Home Medications: Ambulatory Orders Medication Instructions Recorded Confirmed Aspirin [Adult Low Dose Aspirin EC] 1 tab ORAL DAILY 01/06/14 01/06/14 Chlorthalidone 0.5 tab ORAL DAILY 01/06/14 01/06/14 Fluconazole [Diflucan] 1 tab ORAL DAILY 01/06/14 01/06/14 Fluticasone [Flonase] 1 spray ANNA BID 01/06/14 01/06/14 Gabapentin 600 mg ORAL DAILY 01/06/14 01/06/14 Levothyroxine [Synthroid] 1 tab ORAL DAILY 01/06/14 01/06/14 Lisinopril/Hydrochlorothiazide 1 tab ORAL DAILY 01/06/14 01/06/14 [Lisinopril-Hctz 10-12.5 mg Tab] Lovastatin 1 tab ORAL DAILY 01/06/14 01/06/14 Metformin HCl [Glucophage] 1,000 mg ORAL BID 01/06/14 01/06/14 Multivitamin [Multi Vitamin Daily] 1 tab ORAL DAILY 01/06/14 01/06/14 - Allergies Allergies/Adverse Reactions: Allergies Allergy/AdvReac Type Severity Reaction Status Date / Time latex Allergy Mild Rash Verified 09/26/21 16:47 pollen extracts Allergy Mild Respiratory Verified 09/26/21 16:47 Sulfa (Sulfonamide Allergy Mild Rash Verified 01/06/14 13:33 Antibiotics) Review of Systems - Constitutional Constitutional: reports: Chills, Weakness. denies: Fatigue, Fever - Eyes Eyes: denies: Pain, Field loss, Dipolpia - Ears, Nose & Throat Ears, Nose & Throat: denies: Vertigo - Cardiovascular Cariovascular: reports: Lightheadedness. denies: Chest pain, Edema - Respiratory Respiratory: denies: Sputum production, Wheezing, SOB at rest, SOB with exertion - Gastrointestinal Gastrointestinal: denies: Abdominal pain, Abdominal distention, Constipation, Diarrhea, Nausea, Vomiting - Genitourinary Genitourinary: denies: Dysuria, Frequency, Urgency, Hematuria - Musculoskeletal Musculoskeletal: reports: Back pain. denies: Muscle pain - Integumentary Integumentary: denies: Rash, Pruritis, Lesions - Neurological Neurological: reports: General weakness. denies: Focal weakness, Headache - Psychiatric Psychiatric: denies: Depression, Anxiety - Endocrine Endocrine: denies: Polyuria, Polydypsia - Hematologic/Lymphatic Hematologic/Lymphatic: denies: Anemia, Bruising, Petechiae Prior Level of Functionality: She is independent of activities of daily living. Exam - Vital Signs Vital Signs: Vital Signs x48h Temp Pulse Resp BP Pulse Ox 09/26/21 13:39 37.3 C 63 19 168/78 H 98 09/26/21 13:34 37.3 C 63 19 168/78 H 98 - Physical Exam General Appearance: positive: Alert, Moderate distress Eyes Bilateral: positive: PERRL, EOMI ENT: positive: No signs of dehydration Neck: positive: No JVD, Trachea midline Respiratory: positive: Chest non-tender, No respiratory distress, Breath sounds nml. negative: Wheezes, Rales, Rhonchi Cardiovascular: positive: Regular rate & rhythm, No murmur Abdomen: positive: Non-tender, No organomegaly, Nml bowel sounds, No distention. negative: Guarding, Rebound Back: positive: Nml inspection, CVA tenderness (L) Skin: positive: Color nml, No rash, Warm, Dry Extremities: positive: Non-tender, Full ROM, Nml appearance Neurologic/Psychiatric: positive: Oriented x3, Mood/affect nml Conclusion/Plan - Problem List (1) Hyponatremia Conclusion/Plan: Likely due to medication and dehydration. Patient is on a lisinopril/HCTZ combination and chlorthalidone. We will hold medications for now. IV hydration with normal saline at 100 mL/h. Will check BMP and adjust hydration accordingly. Anticipating improvement in sodium level. Initial sodium was 122. (2) Dehydration Conclusion/Plan: Patient is on 2 thiazide diuretics chlorthalidone and hydrochlorothiazide. She is also on lisinopril. These medications have been held while actively hydrating the patient. Creatinine was 1.1. (3) Low back pain Conclusion/Plan: Due to fall. X-ray of ribs and chest were negative for any fractures. Pain management with Tylenol, [place] and/or morphine as needed. Qualifiers: Chronicity: acute Back pain laterality: bilateral Sciatica presence: without sciatica Qualified Code(s): M54.50 - Low back pain, unspecified (4) Fall Conclusion/Plan: Likely due to dizziness related to medication/dehydration. Medications currently on hold. Patient being actively hydrated. Qualifiers: Encounter type: initial encounter Qualified Code(s): W19.XXXA - Unspecified fall, initial encounter (5) Hypertension Conclusion/Plan: Hydralazine 10 mg IV every 6 hours as needed for systolic blood pressure greater than 160. Currently chlorthalidone, hydrochlorothiazide and lisinopril on hold. (6) Diabetes mellitus Conclusion/Plan: We will hold patient's metformin for now. Sliding scale insulin, Accu-Cheks q. ACH S. Carb controlled diet ordered. We will continue patient's gabapentin 600 mg oral daily. Qualifiers: Diabetes mellitus type: type 2 (7) Hyperlipidemia Conclusion/Plan: On lovastatin 40 mg p.o. daily. Will order atorvastatin while in the hospital. (8) Hypothyroidism Conclusion/Plan: On levothyroxine 75 mcg p.o. daily. (9) Obstructive sleep apnea on CPAP Conclusion/Plan: Patient's home CPAP ordered. - Lab Results Fish Bones: 09/26/21 14:05 09/26/21 14:05 Core Measures - Anticipated LOS I expect patient to be DC'd or transferred within 96 hours.: Yes - DVT/VTE - Prophylaxis VTE/DVT Device ordered at admit?: Yes
[2021-09-26] MEDS ORDERED: hydrALAZINE INJ 20 MG/ML VIAL IVP PRN (15:48)
[2021-09-26 16:08] LABS: BILIRUBIN,URINE NEGATIVE (NEGATIVE); GLUCOSE, URINE (UA) NEGATIVE (NEGATIVE); KETONES,URINE (UA) NEGATIVE (NEGATIVE); LEUKOCYTE ESTERASE, URINE NEGATIVE (NEGATIVE); NITRITE,URINE NEGATIVE (NEGATIVE); OCCULT BLOOD,URINE TRACE-INTA (NEGATIVE); PH,URINE 5.5 PH (5.0-7.5); PROTEIN,URINE NEGATIVE (NEGATIVE); UROBILINOGEN,URINE 0.2 (NORMAL) E.U./dL (NORMAL)
[2021-09-26 16:19] LABS: CLARITY,URINE CLEAR (CLEAR)
[2021-09-26] MEDS: MORPHINE 2 MG/ML CARPUJECT IVP STA ×2 (16:28→16:29)
[2021-09-26] MEDS: INSULIN ASPART 300 UNIT/3 ML PEN SUBQ SCH ×2 (17:14→20:22)
[2021-09-26] MEDS: SODIUM CHLORIDE FLUSH 0.9% 10 ML SYRINGE IVP SCH (17:48)
[2021-09-26] MEDS: SODIUM CHLORIDE 0.9% 1,000 ML IV SCH (17:48)
[2021-09-26] MEDS: MORPHINE 2 MG/ML CARPUJECT IVP PRN (18:41)
[2021-09-26 19:36] LABS: B. PARAPERTUSSIS- RESP PCR PAN NOT DETECTED; B. PERTUSSIS- RESP PCR PANEL NOT DETECTED; C. PNEUMONIAE- RESP PCR PANEL NOT DETECTED; CORONAVIRUS 229E-RESP PCR NOT DETECTED; CORONAVIRUS HKU1-RESP PCR NOT DETECTED; CORONAVIRUS NL63-RESP PCR NOT DETECTED; CORONAVIRUS OC43-RESP PCR NOT DETECTED; HUMAN METAPNEUMOVIRUS NOT DETECTED; INFLUENZA A- RESP PCR PANEL NOT DETECTED; INFLUENZA B - RESP PCR PANEL NOT DETECTED; M. PNEUMONIAE- RESP PCR PANEL NOT DETECTED; PARAINFLUENZA VIRUS 1 NOT DETECTED; PARAINFLUENZA VIRUS 2 NOT DETECTED; PARAINFLUENZA VIRUS 3 NOT DETECTED; PARAINFLUENZA VIRUS 4 NOT DETECTED; RHINOVIRUS/ENTEROVIRUS NOT DETECTED; RSV- RESP PCR PANEL NOT DETECTED; SARS-CoV-2 -RESP PCR PANEL NOT DETECTED
[2021-09-26] MEDS: DOCUSATE SODIUM 250 MG CAPSULE PO SCH (20:21)
[2021-09-26] MEDS: ATORVASTATIN 40 MG TABLET PO SCH (20:21)
[2021-09-26] MEDS: SENNA 8.6 MG TABLET PO SCH (20:21)
[2021-09-26 22:20] LABS: CALCIUM 9.2 mg/dL (8.5-10.3); CREATININE 0.9 mg/dL (0.4-1.0); POTASSIUM 4.6 mmol/L (3.5-5.0)
[2021-09-26] MEDS: HYDROcod/ACETAM 5/325 MG TABLET PO PRN (22:42)
[2021-09-27] MEDS: SODIUM CHLORIDE FLUSH 0.9% 10 ML SYRINGE IVP SCH ×3 (00:10→17:38)
[2021-09-27] MEDS: MORPHINE 2 MG/ML CARPUJECT IVP PRN (00:18)
[2021-09-27] MEDS: SODIUM CHLORIDE 0.9% 1,000 ML IV SCH ×3 (03:17→21:02)
[2021-09-27 05:26] LABS: BASOPHILS # (AUTO) 0.1 10^3/uL (0.0-0.1); BASOPHILS % (AUTO) 0.6 %; EOSINOPHILS # (AUTO) 0.5 10^3/uL (0.0-0.7); EOSINOPHILS % (AUTO) 5.7 %; HCT - HEMATOCRIT 31.4 % (37.0-47.0); HGB - HEMOGLOBIN 10.9 g/dL (12.0-16.0); LYMPHOCYTES # (AUTO) 0.9 10^3/uL (1.5-3.5); LYMPHOCYTES % (AUTO) 10.8 %; MEAN CORPUSCULAR HEMOGLOBIN 31.9 pg (27.0-31.0); MEAN CORPUSCULAR HGB CONC 34.7 g/dL (32.0-36.0); MEAN CORPUSCULAR VOLUME 91.8 fL (81.0-99.0); MEAN PLATELET VOLUME 9.7 fL (7.9-10.8); MONOCYTES # (AUTO) 0.8 10^3/uL (0.0-1.0); MONOCYTES % (AUTO) 9.1 %; NEUTROPHILS # (AUTO) 6.1 10^3/uL (1.5-6.6); NEUTROPHILS % (AUTO) 73.4 %; PLT - PLATELET COUNT 274 10^3/uL (130-450); RED BLOOD COUNT 3.42 10^6/uL (4.20-5.40); RED CELL DISTRIBUTION WIDTH 14.1 % (12.0-15.0); WHITE BLOOD COUNT 8.2 x10^3/uL (4.8-10.8)
[2021-09-27 05:36] LABS: CALCIUM 9.2 mg/dL (8.5-10.3); CREATININE 0.9 mg/dL (0.4-1.0); POTASSIUM 4.8 mmol/L (3.5-5.0)
[2021-09-27] MEDS: LEVOTHYROXINE 75 MCG TABLET PO SCH (05:57)
[2021-09-27] MEDS: HYDROcod/ACETAM 5/325 MG TABLET PO PRN ×2 (05:57→11:56)
[2021-09-27] MEDS: INSULIN ASPART 300 UNIT/3 ML PEN SUBQ SCH ×4 (08:05→21:09)
[2021-09-27] MEDS: GABAPENTIN 300 MG CAPSULE PO SCH (08:48)
[2021-09-27] MEDS: SENNA 8.6 MG TABLET PO SCH (08:48)
[2021-09-27] MEDS: DOCUSATE SODIUM 250 MG CAPSULE PO SCH (08:48)
[2021-09-27] MEDS: ASPIRIN EC 81 MG TABLET PO SCH (08:48)
--- NOTE | 2021-09-27 10:12 | PHARMACY PROGRESS NOTE ---
- Best Possible Medication History Admit Date and Time: 09/26/21 1537 Processed by: Pharmacy Medication History completed: Yes Patient Interview: Pt unable to participate Secondary Source(s): Physician records, Pharmacy records, Insurance records As the person ultimately responsible for medication therapy, providers are able to order a medication from an existing home medication list in [facility] via the "Reconcile Routine" prior to Confirmation of that medication by support analyst. Such practice is discouraged except when the physician, in their clinical judgment, deems that a medical need exists for a medication without regard to previous use.
[2021-09-27 11:15] LABS: CALCIUM 9.5 mg/dL (8.5-10.3); CREATININE 0.9 mg/dL (0.4-1.0); POTASSIUM 4.5 mmol/L (3.5-5.0)
[2021-09-27 12:10] LABS: ESTIMATED AVERAGE GLUCOSE 134 mg/dL (70-100); HEMOGLOBIN A1c% 6.3 % (4.27-6.07)
[2021-09-27] MEDS ORDERED: SODIUM CHLORIDE 1 GM TABLET PO ONE (13:00)
[2021-09-27] MEDS ORDERED: KETOROLAC 15 MG/ML VIAL IVP STA (14:06)
[2021-09-27] MEDS: CYCLOBENZAPRINE 10 MG TABLET PO PRN ×2 (14:38→21:02)
[2021-09-27 17:27] LABS: CALCIUM 9.3 mg/dL (8.5-10.3); CREATININE 1.2 mg/dL (0.4-1.0); POTASSIUM 4.5 mmol/L (3.5-5.0)
--- NOTE | 2021-09-27 18:02 | PROVIDER PROGRESS NOTE ---
Assessment/Plan - Problem List (1) Hyponatremia Assessment/Plan: Likely due to medication and dehydration. Patient is on a lisinopril/HCTZ combination and spironolactone. We will hold spironolactone and hctz. Initial sodium was 122. Sodium this morning was 127. Patient was given a salt tab and IV hydration was continued at 125 mL/h. Repeat sodium level was 126. We will continue hydrating through the night. (2) Dehydration Assessment/Plan: Mild. Continue IV Hydration (3) Low back pain Qualifiers: Chronicity: acute Back pain laterality: bilateral Sciatica presence: without sciatica Qualified Code(s): M54.50 - Low back pain, unspecified Assessment/Plan: Due to fall. X-ray of ribs and chest were negative for any fractures. Pain management with Tylenol, [place] and/or morphine as needed. (4) Fall Qualifiers: Encounter type: initial encounter Qualified Code(s): W19.XXXA - Unspecified fall, initial encounter Assessment/Plan: Likely due to dizziness related to medication/dehydration. Medications currently on hold. Patient being actively hydrated. (5) Hypertension Assessment/Plan: Lisinopril 40 mg p.o. daily. Verapamil ER 180 mg p.o. twice daily. Will continue to hold spironolactone. Hydralazine 10 mg every 4 hours as needed for systolic greater than 160. (6) Diabetes mellitus Qualifiers: Diabetes mellitus type: type 2 Assessment/Plan: Metformin on hold. Sliding scale insulin, Accu-Cheks q. ACH S. Carb controlled diet ordered. We will continue patient's gabapentin 600 mg oral daily. (7) Hyperlipidemia Assessment/Plan: On lovastatin 40 mg p.o. daily. Atorvastatin ordered while in the hospital. (9) Obstructive sleep apnea on CPAP Assessment/Plan: Patient's home CPAP ordered. - Current Meds Current Meds: Current Medications Generic Name Dose Route Start Last Admin Trade Name Freq PRN Reason Stop Dose Admin Hydrocodone Bitart/Acetaminophen 1 tab 09/26/21 17:28 09/27/21 11:56 Hydrocod/Acetam 5/325 Mg Tablet PO 1 tab Q4HR PRN Administration PAIN Aspirin 81 mg 09/27/21 09:00 09/27/21 08:48 Aspirin Ec 81 Mg Tablet PO 81 mg DAILY KIRTI Administration Atorvastatin Calcium 40 mg 09/26/21 21:00 09/26/21 20:21 Atorvastatin 40 Mg Tablet PO 40 mg QPM KIRTI Administration Cyclobenzaprine HCl 10 mg 09/27/21 14:06 09/27/21 14:38 Cyclobenzaprine 10 Mg Tablet PO 10 mg TID PRN Administration Spasms Docusate Sodium 250 - 500 mg 09/26/21 21:00 09/27/21 08:48 Docusate Sodium 250 Mg Capsule PO 250 mg DAILY KIRTI Administration Gabapentin 600 mg 09/27/21 09:00 09/27/21 08:48 Gabapentin 300 Mg Capsule PO 600 mg DAILY KIRTI Administration Sodium Chloride 1,000 mls @ 125 mls/hr 09/27/21 07:47 09/27/21 11:57 Normal Saline 0.9% IV 125 mls/hr .Q8H KIRTI Administration Insulin Aspart 1 - 5 unit 09/26/21 17:00 09/27/21 17:38 Insulin Aspart 300 Unit/3 Ml Pen SUBQ Not Given 0800,1200,1700,2100 [facility] Protocol Levothyroxine Sodium 75 mcg 09/27/21 07:00 09/27/21 05:57 Levothyroxine 75 Mcg Tablet PO 75 mcg QDAC KIRTI Administration Morphine Sulfate 2 mg 09/26/21 17:28 09/27/21 00:18 Morphine 2 Mg/Ml Carpuject IVP 2 mg Q2HR PRN Administration PAIN Senna 8.6 - 17.2 mg 09/26/21 21:00 09/27/21 08:48 Senna 8.6 Mg Tablet PO 8.6 mg DAILY KIRTI Administration Sodium Chloride 10 ml 09/26/21 17:00 09/27/21 17:38 Sodium Chloride Flush 0.9% 10 Ml Syringe IVP Not Given 0100,0900,1700 [facility] - Lab Result Fish Bone Diagrams: 09/27/21 05:09 09/27/21 17:09 - Additional Planning My Orders: My Active Orders 09/26/21 17:00 Insulin Aspart [NovoLOG] 1 - 5 unit SUBQ 0800,1200,1700,2100 Sodium Chloride Flush 0.9% [Normal Saline Flush 0.9%] 10 ml IVP 0100,0900,1700 09/26/21 17:28 HYDROcod/ACETAM 5/325 [[place] 5/325] 1 tab PO Q4HR PRN Morphine Inj (Carpuject) [Morphine (Carpuject)] 2 mg IVP Q2HR PRN 09/26/21 17:34 Home CPAP/BiPAP [RC] .ONCE 09/26/21 21:00 Atorvastatin [Lipitor] 40 mg PO QPM Docusate Sodium 250Mg Capsule [Colace 250Mg Capsule] 250 - 500 mg PO DAILY Senna [Senokot] 8.6 - 17.2 mg PO DAILY 09/27/21 07:00 Levothyroxine [Synthroid] 75 mcg PO QDAC 09/27/21 07:47 Sodium Chloride 0.9% [Normal Saline 0.9%] 1,000 ml IV 125 mls/hr 09/27/21 09:00 Aspirin EC [Ecotrin] 81 mg PO DAILY Gabapentin [Neurontin] 600 mg PO DAILY 09/27/21 14:06 Cyclobenzaprine [Flexeril] 10 mg PO TID PRN 09/27/21 17:51 Admit \ Transfer \ Status [] .ONCE 09/27/21 21:00 Fluticasone [Flonase] 1 spray ANNA BID Latanoprost 0.005% Ophth Drops [Xalatan Ophth Drops] 1 drops EACHEYE QPM Oxybutynin [Ditropan] 5 mg PO BID Timolol Maleate [Timoptic] 1 drops EACHEYE BID Verapamil ER [Calan SA] 180 mg PO BID 09/28/21 05:00 BMP - BASIC METABOLIC PANEL [CHEM] DAILYLAB CBC - COMP BLD CT W/AUTO DIFF [HEME] DAILYLAB 09/28/21 09:00 Multivitamin [Multi-Vitamin Daily] 1 tab PO DAILY lisinopriL [Zestril] 40 mg PO DAILY 09/29/21 05:00 BMP - BASIC METABOLIC PANEL [CHEM] DAILYLAB CBC - COMP BLD CT W/AUTO DIFF [HEME] DAILYLAB Subjective - Subjective Patient Reports: Other (Patient was resting comfortably in bed at time of exam. She denied any complaints.) Objective Vital Signs: Vital Signs - 24 hr 09/26/21 09/27/21 09/27/21 20:11 00:14 05:00 Temperature 36.6 C 36.6 C 37.6 C Heart Rate [ 59 L 68 75 Brachial] Respiratory 18 16 18 Rate Blood Pressure 133/61 H 146/67 H 154/61 H [Left Brachial artery] Blood Pressure [Right Brachial artery] O2 Saturation 93 94 93 09/27/21 09/27/21 09/27/21 08:39 13:00 15:58 Temperature 37.0 C 37 C 36.9 C Heart Rate [ 73 73 63 Brachial] Respiratory 18 16 17 Rate Blood Pressure 140/70 H 138/52 H [Left Brachial artery] Blood Pressure 128/57 L [Right Brachial artery] O2 Saturation 92 93 91 L Oxygen O2 Source Room air I&O (Last 24 Hrs): Intake and Output Totals x24h 09/25/21 09/26/21 09/27/21 23:59 23:59 23:59 Intake Total 1626 2896.333 Output Total 1200 2100 Balance 426 796.333 General: Alert, Oriented x3, No acute distress HEENT: PERRLA, EOMI Neck: Supple, No JVD Neuro: Alert, Oriented Times 3 Cardiovascular: Regular rate, Normal S1, Normal S2 Respiratory: Chest non-tender, No respiratory distress, Breath sounds nml Abdomen: Normal bowel sounds, Soft, No tenderness Extremities: No clubbing, No cyanosis, No edema, No tenderness/swelling Skin: No rashes, No breakdown, No significant lesion - Results Results: Laboratory Results WBC 8.2 x10^3/uL (4.8-10.8) 09/27/21 05:09 RBC 3.42 10^6/uL (4.20-5.40) L 09/27/21 05:09 Hgb 10.9 g/dL (12.0-16.0) L 09/27/21 05:09 Hct 31.4 % (37.0-47.0) L 09/27/21 05:09 MCV 91.8 fL (81.0-99.0) 09/27/21 05:09 MCH 31.9 pg (27.0-31.0) H 09/27/21 05:09 MCHC 34.7 g/dL (32.0-36.0) 09/27/21 05:09 RDW 14.1 % (12.0-15.0) 09/27/21 05:09 Plt Count 274 10^3/uL (130-450) 09/27/21 05:09 MPV 9.7 fL (7.9-10.8) 09/27/21 05:09 Neut # (Auto) 6.1 10^3/uL (1.5-6.6) 09/27/21 05:09 Lymph # (Auto) 0.9 10^3/uL (1.5-3.5) L 09/27/21 05:09 [place] # (Auto) 0.8 10^3/uL (0.0-1.0) 09/27/21 05:09 Eos # (Auto) 0.5 10^3/uL (0.0-0.7) 09/27/21 05:09 Baso # (Auto) 0.1 10^3/uL (0.0-0.1) 09/27/21 05:09 Absolute Nucleated RBC 0.00 x10^3/uL 09/27/21 05:09 Nucleated RBC % 0.0 /100WBC 09/27/21 05:09 Sodium 126 mmol/L (135-145) L 09/27/21 17:09 Potassium 4.5 mmol/L (3.5-5.0) 09/27/21 17:09 Chloride 93 mmol/L (101-111) L 09/27/21 17:09 Carbon Dioxide 25 mmol/L (21-32) 09/27/21 17:09 Anion Gap 8.0 (6-13) 09/27/21 17:09 BUN 19 mg/dL (6-20) 09/27/21 17:09 Creatinine 1.2 mg/dL (0.4-1.0) H 09/27/21 17:09 Estimated GFR (MDRD) 44 (>89) L 09/27/21 17:09 Glucose 137 mg/dL (70-100) H 09/27/21 17:09 POC Whole Bld Glucose 117 mg/dL (70 - 100) H 09/27/21 16:41 Estimat Average Glucose 134 mg/dL (70-100) H 09/27/21 05:09 Hemoglobin A1c % 6.3 % (4.27-6.07) H 09/27/21 05:09 Calcium 9.3 mg/dL (8.5-10.3) 09/27/21 17:09 Total Bilirubin 0.6 mg/dL (0.2-1.0) 09/26/21 14:05 AST 25 IU/L (10-42) 09/26/21 14:05 ALT 24 IU/L (10-60) 09/26/21 14:05 Alkaline Phosphatase 51 IU/L (42-121) 09/26/21 14:05 Troponin I High Sens 3.5 ng/L (2.3-14.8) 09/26/21 14:05 Total Protein 6.8 g/dL (6.7-8.2) 09/26/21 14:05 Albumin 3.5 g/dL (3.2-5.5) 09/26/21 14:05 Globulin 3.3 g/dL (2.1-4.2) 09/26/21 14:05 Albumin/Globulin Ratio 1.1 (1.0-2.2) 09/26/21 14:05 Lipase 40 U/L (22-51) 09/26/21 14:05 Urine Color YELLOW 09/26/21 14:05 Urine Clarity CLEAR (CLEAR) 09/26/21 14:05 Urine pH 5.5 PH (5.0-7.5) 09/26/21 14:05 Ur Specific [place] 1.020 (1.002-1.030) 09/26/21 14:05 Urine Protein NEGATIVE mg/dL (NEGATIVE) 09/26/21 14:05 Urine Glucose (UA) NEGATIVE mg/dL (NEGATIVE) 09/26/21 14:05 Urine Ketones NEGATIVE mg/dL (NEGATIVE) 09/26/21 14:05 Urine Occult Blood TRACE-INTA (NEGATIVE) 09/26/21 14:05 Urine Nitrite NEGATIVE (NEGATIVE) 09/26/21 14:05 Urine Bilirubin NEGATIVE (NEGATIVE) 09/26/21 14:05 Urine Urobilinogen 0.2 (NORMAL) E.U./dL (NORMAL) 09/26/21 14:05 Ur Leukocyte Esterase NEGATIVE (NEGATIVE) 09/26/21 14:05 Ur Microscopic Review NOT INDICATED 09/26/21 14:05 Urine Culture Comments NOT INDICATED 09/26/21 14:05 Nasal Adenovirus (PCR) NOT DETECTED 09/26/21 16:00 Nasal B. parapertussis DNA (PCR) NOT DETECTED 09/26/21 16:00 Nasal Coronavir 229E PCR NOT DETECTED 09/26/21 16:00 Nasal Coronavir HKU1 PCR NOT DETECTED 09/26/21 16:00 Nasal Coronavir NL63 PCR NOT DETECTED 09/26/21 16:00 Nasal Coronavir OC43 PCR NOT DETECTED 09/26/21 16:00 Nasal Enterovir/Rhinovir PCR NOT DETECTED 09/26/21 16:00 Nasal Influenza B PCR NOT DETECTED 09/26/21 16:00 Nasal Influenza A PCR NOT DETECTED 09/26/21 16:00 Nasal Parainfluen 1 PCR NOT DETECTED 09/26/21 16:00 Nasal Parainfluen 2 PCR NOT DETECTED 09/26/21 16:00 Nasal Parainfluen 3 PCR NOT DETECTED 09/26/21 16:00 Nasal Parainfluen 4 PCR NOT DETECTED 09/26/21 16:00 Nasal RSV (PCR) NOT DETECTED 09/26/21 16:00 Nasal B.pertussis DNA PCR NOT DETECTED 09/26/21 16:00 Nasal C.pneumoniae (PCR) NOT DETECTED 09/26/21 16:00 Anna Human Metapneumo PCR NOT DETECTED 09/26/21 16:00 Nasal M.pneumoniae (PCR) NOT DETECTED 09/26/21 16:00 Nasal SARS-CoV-2 (PCR) NOT DETECTED 09/26/21 16:00 - Procedures Procedures: Procedures COLONOSCOPY (01/06/14) ABX Reporting Has patient been on IV antibiotics over the past 48 hours?: No
[2021-09-27] MEDS: ATORVASTATIN 40 MG TABLET PO SCH (21:02)
[2021-09-27] MEDS: VERAPAMIL ER 180 MG TABLET PO SCH (21:02)
[2021-09-27] MEDS: FLUTICASONE NASAL SPRAY NAS SCH (21:03)
[2021-09-27] MEDS: TIMOLOL 0.5% OPHTH DROPS EACHEYE SCH (21:03)
[2021-09-27] MEDS: OXYBUTYNIN 5MG TABLET PO SCH (21:03)
[2021-09-27] MEDS: LATANOPROST 0.005% OPHTH DROPS EACHEYE SCH (21:04)
[2021-09-28] MEDS: SODIUM CHLORIDE FLUSH 0.9% 10 ML SYRINGE IVP SCH ×3 (00:21→17:07)
[2021-09-28] MEDS: HYDROcod/ACETAM 5/325 MG TABLET PO PRN ×2 (00:25→19:37)
[2021-09-28] MEDS: SODIUM CHLORIDE 0.9% 1,000 ML IV SCH ×3 (04:34→13:03)
[2021-09-28 05:37] LABS: BASOPHILS # (AUTO) 0.1 10^3/uL (0.0-0.1); BASOPHILS % (AUTO) 0.8 %; EOSINOPHILS # (AUTO) 0.4 10^3/uL (0.0-0.7); HCT - HEMATOCRIT 28.2 % (37.0-47.0); HGB - HEMOGLOBIN 9.5 g/dL (12.0-16.0); LYMPHOCYTES # (AUTO) 1.1 10^3/uL (1.5-3.5); LYMPHOCYTES % (AUTO) 15.7 %; MEAN CORPUSCULAR HEMOGLOBIN 30.8 pg (27.0-31.0); MEAN CORPUSCULAR HGB CONC 33.7 g/dL (32.0-36.0); MEAN CORPUSCULAR VOLUME 91.6 fL (81.0-99.0); MEAN PLATELET VOLUME 10.3 fL (7.9-10.8); MONOCYTES # (AUTO) 0.7 10^3/uL (0.0-1.0); MONOCYTES % (AUTO) 9.1 %; NEUTROPHILS % (AUTO) 69.1 %; PLT - PLATELET COUNT 260 10^3/uL (130-450); RED BLOOD COUNT 3.08 10^6/uL (4.20-5.40); RED CELL DISTRIBUTION WIDTH 14.2 % (12.0-15.0); WHITE BLOOD COUNT 7.3 x10^3/uL (4.8-10.8)
[2021-09-28 05:42] LABS: CALCIUM 8.7 mg/dL (8.5-10.3); POTASSIUM 4.6 mmol/L (3.5-5.0)
[2021-09-28] MEDS: ACETAMINOPHEN 325 MG TABLET PO PRN ×2 (06:12→20:55)
[2021-09-28] MEDS: LEVOTHYROXINE 75 MCG TABLET PO SCH (06:12)
[2021-09-28] MEDS: CYCLOBENZAPRINE 10 MG TABLET PO PRN ×3 (06:12→21:02)
[2021-09-28] MEDS: INSULIN ASPART 300 UNIT/3 ML PEN SUBQ SCH ×4 (08:22→20:57)
[2021-09-28] MEDS: SENNA 8.6 MG TABLET PO SCH (09:07)
[2021-09-28] MEDS: MULTIVITAMIN TABLET PO SCH (09:07)
[2021-09-28] MEDS: ASPIRIN EC 81 MG TABLET PO SCH (09:07)
[2021-09-28] MEDS: VERAPAMIL ER 180 MG TABLET PO SCH ×2 (09:07→20:55)
[2021-09-28] MEDS: GABAPENTIN 300 MG CAPSULE PO SCH ×2 (09:07→20:55)
[2021-09-28] MEDS: DOCUSATE SODIUM 250 MG CAPSULE PO SCH (09:07)
[2021-09-28] MEDS: OXYBUTYNIN 5MG TABLET PO SCH ×2 (09:08→20:55)
[2021-09-28] MEDS: lisinopriL 20 MG TABLET PO SCH (09:08)
[2021-09-28] MEDS: TIMOLOL 0.5% OPHTH DROPS EACHEYE SCH ×2 (09:13→20:54)
[2021-09-28] MEDS: FLUTICASONE NASAL SPRAY NAS SCH ×2 (09:13→20:56)
--- NOTE | 2021-09-28 11:18 | PROVIDER PROGRESS NOTE ---
Subjective - Prog Note Date Prog Note Date: 09/28/21 - Subjective Subjective: She feels a little drowsy at times which she feels is due to the medications that she is receiving. She still complains of left-sided back pain which feels muscular in nature. She has no numbness and the pain does not radiate down her leg. She feels like it might be a little improved compared to admission. It is worse with any movement. Current Medications - Current Medications Current Medications: Active Medications Acetaminophen (Acetaminophen 325 Mg Tablet) 650 mg PO Q4HR PRN PRN Reason: Pain 1 to 4, or Fever Last Admin: 09/28/21 06:12 Dose: 650 mg Hydrocodone Bitart/Acetaminophen (Hydrocod/Acetam 5/325 Mg Tablet) 1 tab PO Q4HR PRN PRN Reason: PAIN Last Admin: 09/28/21 00:25 Dose: 1 tab Aspirin (Aspirin Ec 81 Mg Tablet) 81 mg PO DAILY [facility] Last Admin: 09/28/21 09:07 Dose: 81 mg Atorvastatin Calcium (Atorvastatin 40 Mg Tablet) 40 mg PO QPM [facility] Last Admin: 09/27/21 21:02 Dose: 40 mg Cyclobenzaprine HCl (Cyclobenzaprine 10 Mg Tablet) 10 mg PO TID PRN PRN Reason: Spasms Last Admin: 09/28/21 06:12 Dose: 10 mg Docusate Sodium (Docusate Sodium 250 Mg Capsule) 250 - 500 mg PO DAILY [facility] Last Admin: 09/28/21 09:07 Dose: 250 mg Fluticasone Propionate (Fluticasone Nasal [place]) 1 sprays ANNA BID [facility] Last Admin: 09/28/21 09:13 Dose: Not Given Gabapentin (Gabapentin 300 Mg Capsule) 600 mg PO DAILY [facility] Last Admin: 09/28/21 09:07 Dose: 600 mg Sodium Chloride (Normal Saline 0.9%) 1,000 mls @ 125 mls/hr IV .Q8H [facility] Last Admin: 09/28/21 09:14 Dose: Not Given Insulin Aspart (Insulin Aspart 300 Unit/3 Ml Pen) 1 - 5 unit SUBQ 0800,1200,1700,2100 [facility]; Protocol Last Admin: 09/28/21 08:22 Dose: Not Given Latanoprost (Latanoprost 0.005% Ophth Drops) 1 drops EACHEYE QPM [facility] Last Admin: 09/27/21 21:04 Dose: 1 drops Levothyroxine Sodium (Levothyroxine 75 Mcg Tablet) 75 mcg PO QDAC [facility] Last Admin: 09/28/21 06:12 Dose: 75 mcg Lidocaine (Lidocaine Patch 5%) 1 patch TOP DAILY [facility] Lisinopril (Lisinopril 20 Mg Tablet) 40 mg PO DAILY [facility] Last Admin: 09/28/21 09:08 Dose: 40 mg Morphine Sulfate (Morphine 2 Mg/Ml Carpuject) 2 mg IVP Q2HR PRN PRN Reason: PAIN Last Admin: 09/27/21 00:18 Dose: 2 mg Multivitamins (Multivitamin Tablet) 1 tab PO DAILYWM [facility] Last Admin: 09/28/21 09:07 Dose: 1 tab Ondansetron HCl (Ondansetron 4 Mg/2 Ml Vial) 4 mg IVP Q6HR PRN PRN Reason: Nausea / Vomiting Oxybutynin Chloride (Oxybutynin 5mg Tablet) 5 mg PO BID [facility] Last Admin: 09/28/21 09:08 Dose: 5 mg Senna (Senna 8.6 Mg Tablet) 8.6 - 17.2 mg PO DAILY [facility] Last Admin: 09/28/21 09:07 Dose: 8.6 mg Sodium Chloride (Sodium Chloride Flush 0.9% 10 Ml Syringe) 10 ml IVP PRN PRN PRN Reason: NEEDED PER PROVIDER ORDERS Sodium Chloride (Sodium Chloride Flush 0.9% 10 Ml Syringe) 10 ml IVP 0100,0900,1700 [facility] Last Admin: 09/28/21 09:13 Dose: 10 ml Timolol Maleate (Timolol 0.5% Ophth Drops) 1 drops EACHEYE BID [facility] Last Admin: 09/28/21 09:13 Dose: Not Given Verapamil HCl (Verapamil Er 180 Mg Tablet) 180 mg PO BID [facility] Last Admin: 09/28/21 09:07 Dose: 180 mg Aspirin [Adult Low Dose Aspirin EC] 1 tab ORAL DAILY 01/06/14 Fluticasone [Flonase] 1 spray ANNA BID 01/06/14 Gabapentin 600 mg PO BID 01/06/14 Levothyroxine [Synthroid] 75 mcg PO QDAC 01/06/14 Metformin HCl [Glucophage] 1,000 mg ORAL BID 01/06/14 Multivitamin [Multi Vitamin Daily] 1 tab PO DAILY 01/06/14 Atorvastatin Calcium 40 mg PO QPM 09/27/21 Latanoprost 0.005% Ophth Drops [Xalatan Ophth Drops] 1 drops EACHEYE QPM 09/27/21 Omeprazole Magnesium 20 mg PO BIDAC 09/27/21 Oxybutynin [Ditropan] 5 mg PO BID 09/27/21 Spironolactone [Aldactone] 50 mg PO DAILY 09/27/21 Timolol Maleate [Timoptic] 1 drops EACHEYE BID 09/27/21 Verapamil ER [Calan SA] 180 mg PO BID 09/27/21 lisinopriL [Lisinopril] 40 mg PO DAILY 09/27/21 polyethylene glycoL 3350 [Miralax] 17 gm PO DAILY 09/27/21 Objective - Vital Signs/Intake & Output Reviewed Vital Signs: Yes Vital Signs: Vital Signs x48h Temp Pulse Resp BP Pulse Ox 09/28/21 08:45 36.7 C 66 19 155/66 H 95 09/28/21 05:00 36.7 C 58 L 18 130/57 L 95 Intake & Output: Intake & Output 09/25/21 09/26/21 09/27/21 09/28/21 23:59 23:59 23:59 23:59 Intake Total 1626 3896.333 1061.667 Output Total 1200 2100 450 Balance 426 1796.333 611.667 - Objective General Appearance: positive: No acute distress, Alert Eyes Bilateral: positive: Normal inspection, Conjunctivae nml ENT: positive: ENT inspection nml Respiratory: positive: No respiratory distress. negative: Wheezes, Rales Cardiovascular: positive: Regular rate & rhythm, No murmur. negative: Tachycardia Back: positive: Other (Left paraspinal tenderness. No erythema or ecchymosis. No thoracic or lumbar spine tenderness.) Skin: positive: Warm, Dry Extremities: positive: No pedal edema Neurologic/Psychiatric: negative: Disoriented to person, Disoriented to place - Lab Results Fish Bones: 09/28/21 04:32 09/28/21 13:42 Other Labs: Lab Results x24hrs 09/28/21 09/28/21 09/28/21 Range/Units 08:16 04:32 04:32 WBC 7.3 (4.8-10.8) x10^3/uL RBC 3.08 L (4.20-5.40) 10^6/uL Hgb 9.5 L (12.0-16.0) g/dL Hct 28.2 L (37.0-47.0) % MCV 91.6 (81.0-99.0) fL MCH 30.8 (27.0-31.0) pg MCHC 33.7 (32.0-36.0) g/dL RDW 14.2 (12.0-15.0) % Plt Count 260 (130-450) 10^3/uL MPV 10.3 (7.9-10.8) fL Neut # (Auto) 5.0 (1.5-6.6) 10^3/uL Lymph # (Auto) 1.1 L (1.5-3.5) 10^3/uL [place] # (Auto) 0.7 (0.0-1.0) 10^3/uL Eos # (Auto) 0.4 (0.0-0.7) 10^3/uL Baso # (Auto) 0.1 (0.0-0.1) 10^3/uL Absolute Nucleated RBC 0.00 x10^3/uL Nucleated RBC % 0.0 /100WBC Sodium 129 L (135-145) mmol/L Potassium 4.6 (3.5-5.0) mmol/L Chloride 98 L (101-111) mmol/L Carbon Dioxide 23 (21-32) mmol/L Anion Gap 8.0 (6-13) BUN 17 (6-20) mg/dL Creatinine 1.0 (0.4-1.0) mg/dL Estimated GFR (MDRD) 54 L (>89) Glucose 128 H (70-100) mg/dL POC Whole Bld Glucose 104 H (70 - 100) mg/dL Estimat Average Glucose (70-100) mg/dL Hemoglobin A1c % (4.27-6.07) % Calcium 8.7 (8.5-10.3) mg/dL 09/27/21 09/27/21 09/27/21 Range/Units 20:27 17:09 16:41 WBC (4.8-10.8) x10^3/uL RBC (4.20-5.40) 10^6/uL Hgb (12.0-16.0) g/dL Hct (37.0-47.0) % MCV (81.0-99.0) fL MCH (27.0-31.0) pg MCHC (32.0-36.0) g/dL RDW (12.0-15.0) % Plt Count (130-450) 10^3/uL MPV (7.9-10.8) fL Neut # (Auto) (1.5-6.6) 10^3/uL Lymph # (Auto) (1.5-3.5) 10^3/uL [place] # (Auto) (0.0-1.0) 10^3/uL Eos # (Auto) (0.0-0.7) 10^3/uL Baso # (Auto) (0.0-0.1) 10^3/uL Absolute Nucleated RBC x10^3/uL Nucleated RBC % /100WBC Sodium 126 L (135-145) mmol/L Potassium 4.5 (3.5-5.0) mmol/L Chloride 93 L (101-111) mmol/L Carbon Dioxide 25 (21-32) mmol/L Anion Gap 8.0 (6-13) BUN 19 (6-20) mg/dL Creatinine 1.2 H (0.4-1.0) mg/dL Estimated GFR (MDRD) 44 L (>89) Glucose 137 H (70-100) mg/dL POC Whole Bld Glucose 123 H 117 H (70 - 100) mg/dL Estimat Average Glucose (70-100) mg/dL Hemoglobin A1c % (4.27-6.07) % Calcium 9.3 (8.5-10.3) mg/dL 09/27/21 09/27/21 Range/Units 11:43 05:09 WBC (4.8-10.8) x10^3/uL RBC (4.20-5.40) 10^6/uL Hgb (12.0-16.0) g/dL Hct (37.0-47.0) % MCV (81.0-99.0) fL MCH (27.0-31.0) pg MCHC (32.0-36.0) g/dL RDW (12.0-15.0) % Plt Count (130-450) 10^3/uL MPV (7.9-10.8) fL Neut # (Auto) (1.5-6.6) 10^3/uL Lymph # (Auto) (1.5-3.5) 10^3/uL [place] # (Auto) (0.0-1.0) 10^3/uL Eos # (Auto) (0.0-0.7) 10^3/uL Baso # (Auto) (0.0-0.1) 10^3/uL Absolute Nucleated RBC x10^3/uL Nucleated RBC % /100WBC Sodium (135-145) mmol/L Potassium (3.5-5.0) mmol/L Chloride (101-111) mmol/L Carbon Dioxide (21-32) mmol/L Anion Gap (6-13) BUN (6-20) mg/dL Creatinine (0.4-1.0) mg/dL Estimated GFR (MDRD) (>89) Glucose (70-100) mg/dL POC Whole Bld Glucose 144 H (70 - 100) mg/dL Estimat Average Glucose 134 H (70-100) mg/dL Hemoglobin A1c % 6.3 H (4.27-6.07) % Calcium (8.5-10.3) mg/dL Assessment/Plan - Problem List (1) Hyponatremia Impression: We suspect this is hypovolemic hyponatremia secondary to the use of spironolactone. She responded well to IV fluids and her sodium is now 129. We will repeat 1 more BMP this afternoon and if it is continuing to improve then we will discontinue IV fluids with plan to discharge home tomorrow. We will discontinue spironolactone on discharge. (2) Low back pain Impression: This is secondary to the fall which is likely due to dehydration and volume depletion. Imaging revealed no fracture and on exam her pain appears to be muscular in nature. We will continue with Flexeril as needed. We will trial a lidocaine patch as well. Continue with Tylenol as needed. Qualifiers: Chronicity: acute Back pain laterality: left Sciatica presence: without sciatica Qualified Code(s): M54.50 - Low back pain, unspecified (3) Hypertension Impression: Her blood pressure has been well controlled with just the lisinopril and verapamil. We have discontinued spironolactone given the hyponatremia. If her blood pressures become difficult to control we can add hydralazine. (4) Hypothyroidism Impression: Continue Synthroid. (5) Obstructive sleep apnea on CPAP Impression: Continue home CPAP. (6) Diabetes mellitus Impression: Stable. She is on metformin at home. Continue carb controlled diet and metformin on discharge. Qualifiers: Diabetes mellitus type: type 2
[2021-09-28] MEDS: LIDOCAINE PATCH 5% TOP SCH (11:28)
[2021-09-28 13:58] LABS: CALCIUM 9.6 mg/dL (8.5-10.3); CREATININE 1.2 mg/dL (0.4-1.0); POTASSIUM 4.1 mmol/L (3.5-5.0)
[2021-09-28] MEDS: LATANOPROST 0.005% OPHTH DROPS EACHEYE SCH (20:54)
[2021-09-28] MEDS: ATORVASTATIN 40 MG TABLET PO SCH (20:55)
--- NOTE | 2021-09-29 | XRAY Report ---
PROCEDURE: Chest 1 View X-Ray INDICATIONS: Fever, eval for pneumonia TECHNIQUE: One view of the chest was acquired. COMPARISON: 09/26/2021, 09/19/2019 FINDINGS: Surgical changes and devices: None. Lungs and pleura: No pleural effusions or pneumothorax. There are slightly increased linear opacitie s in the left lung base. Mediastinum: Mediastinal contours appear normal. Heart size is normal. Bones and chest wall: No suspicious bony lesions. Overlying soft tissues appear unremarkable. IMPRESSION: 1. Slightly increased linear left basilar opacities likely represent atelectasis, but may also reflec t acute consolidation. Reviewed by: Garfield Trammell MD on 09/29/2021 12:04 AM PDT Approved by: Garfield Trammell MD on 09/29/2021 12:04 AM PDT Station ID: [id number]
[2021-09-29] MEDS: SODIUM CHLORIDE FLUSH 0.9% 10 ML SYRINGE IVP SCH ×4 (01:23→23:58)
[2021-09-29] MEDS: HYDROcod/ACETAM 5/325 MG TABLET PO PRN (04:59)
[2021-09-29] MEDS: CYCLOBENZAPRINE 10 MG TABLET PO PRN (04:59)
[2021-09-29] MEDS: LEVOTHYROXINE 75 MCG TABLET PO SCH (05:00)
[2021-09-29 05:07] LABS: BILIRUBIN,URINE NEGATIVE (NEGATIVE); GLUCOSE, URINE (UA) NEGATIVE (NEGATIVE); KETONES,URINE (UA) NEGATIVE (NEGATIVE); LEUKOCYTE ESTERASE, URINE NEGATIVE (NEGATIVE); NITRITE,URINE NEGATIVE (NEGATIVE); OCCULT BLOOD,URINE LARGE (NEGATIVE); PROTEIN,URINE NEGATIVE (NEGATIVE); UROBILINOGEN,URINE 0.2 (NORMAL) E.U./dL (NORMAL)
[2021-09-29 05:09] LABS: CLARITY,URINE CLEAR (CLEAR)
[2021-09-29 05:15] LABS: BACTERIA,URINE Rare /HPF (None Seen); SQUAMOUS EPITHELIAL CELL,UR RARE Squamous (<= Few); WBC,URINE 0-3 /HPF (0-5)
[2021-09-29 07:40] LABS: BASOPHILS # (AUTO) 0.1 10^3/uL (0.0-0.1); BASOPHILS % (AUTO) 0.8 %; EOSINOPHILS # (AUTO) 0.6 10^3/uL (0.0-0.7); EOSINOPHILS % (AUTO) 7.8 %; HCT - HEMATOCRIT 29.5 % (37.0-47.0); HGB - HEMOGLOBIN 10.1 g/dL (12.0-16.0); LYMPHOCYTES # (AUTO) 1.1 10^3/uL (1.5-3.5); LYMPHOCYTES % (AUTO) 13.5 %; MEAN CORPUSCULAR HGB CONC 34.2 g/dL (32.0-36.0); MEAN CORPUSCULAR VOLUME 93.4 fL (81.0-99.0); MEAN PLATELET VOLUME 9.3 fL (7.9-10.8); MONOCYTES # (AUTO) 0.7 10^3/uL (0.0-1.0); MONOCYTES % (AUTO) 9.1 %; NEUTROPHILS # (AUTO) 5.5 10^3/uL (1.5-6.6); NEUTROPHILS % (AUTO) 68.5 %; PLT - PLATELET COUNT 249 10^3/uL (130-450); RED BLOOD COUNT 3.16 10^6/uL (4.20-5.40); RED CELL DISTRIBUTION WIDTH 14.4 % (12.0-15.0)
[2021-09-29 07:56] LABS: CALCIUM 9.1 mg/dL (8.5-10.3); CREATININE 1.1 mg/dL (0.4-1.0); POTASSIUM 4.2 mmol/L (3.5-5.0)
[2021-09-29] MEDS: LIDOCAINE PATCH 5% TOP SCH (08:24)
[2021-09-29] MEDS: lisinopriL 20 MG TABLET PO SCH (08:25)
[2021-09-29] MEDS: SENNA 8.6 MG TABLET PO SCH (08:25)
[2021-09-29] MEDS: ASPIRIN EC 81 MG TABLET PO SCH (08:25)
[2021-09-29] MEDS: VERAPAMIL ER 180 MG TABLET PO SCH ×2 (08:25→21:18)
[2021-09-29] MEDS: MULTIVITAMIN TABLET PO SCH (08:26)
[2021-09-29] MEDS: DOCUSATE SODIUM 250 MG CAPSULE PO SCH (08:26)
[2021-09-29] MEDS: GABAPENTIN 300 MG CAPSULE PO SCH ×2 (08:26→21:18)
[2021-09-29] MEDS: FLUTICASONE NASAL SPRAY NAS SCH ×2 (08:28→21:19)
[2021-09-29] MEDS: INSULIN ASPART 300 UNIT/3 ML PEN SUBQ SCH ×4 (08:29→21:19)
[2021-09-29] MEDS: TIMOLOL 0.5% OPHTH DROPS EACHEYE SCH ×2 (08:29→21:18)
[2021-09-29] MEDS: OXYBUTYNIN 5MG TABLET PO SCH ×2 (08:33→21:18)
[2021-09-29] MEDS ORDERED: AZITHROMYCIN 250 MG TABLET PO STA (10:13)
[2021-09-29] MEDS: AMOX/CLAV 875 MG/125 MG TABLET PO SCH ×2 (10:39→21:18)
[2021-09-29 12:48] LABS: CALCIUM 9.5 mg/dL (8.5-10.3); POTASSIUM 3.9 mmol/L (3.5-5.0)
--- NOTE | 2021-09-29 13:38 | PROVIDER PROGRESS NOTE ---
Subjective - Prog Note Date Prog Note Date: 09/29/21 - Subjective Subjective: She did have a fever last night but reports feeling well. No chest pain or dyspnea. She does have an occasional cough. The left-sided back pain is much improved today. She does admit to drinking 10 to 12 glasses of water a day while at home. Current Medications - Current Medications Current Medications: Active Medications Acetaminophen (Acetaminophen 325 Mg Tablet) 650 mg PO Q4HR PRN PRN Reason: Pain 1 to 4, or Fever Last Admin: 09/28/21 20:55 Dose: 650 mg Hydrocodone Bitart/Acetaminophen (Hydrocod/Acetam 5/325 Mg Tablet) 1 tab PO Q4HR PRN PRN Reason: PAIN Last Admin: 09/29/21 04:59 Dose: 1 tab Amoxicillin/Clavulanate Potassium (Amox/Clav 875 Mg/125 Mg Tablet) 1 tab PO BID [facility] Last Admin: 09/29/21 10:39 Dose: 1 tab Aspirin (Aspirin Ec 81 Mg Tablet) 81 mg PO DAILY [facility] Last Admin: 09/29/21 08:25 Dose: 81 mg Atorvastatin Calcium (Atorvastatin 40 Mg Tablet) 40 mg PO QPM [facility] Last Admin: 09/28/21 20:55 Dose: 40 mg Azithromycin (Azithromycin 250 Mg Tablet) 250 mg PO DAILY [facility] Cyclobenzaprine HCl (Cyclobenzaprine 10 Mg Tablet) 10 mg PO TID PRN PRN Reason: Spasms Last Admin: 09/29/21 04:59 Dose: 10 mg Docusate Sodium (Docusate Sodium 250 Mg Capsule) 250 - 500 mg PO DAILY [facility] Last Admin: 09/29/21 08:26 Dose: 250 mg Fluticasone Propionate (Fluticasone Nasal [place]) 1 sprays ANNA BID [facility] Last Admin: 09/29/21 08:28 Dose: Not Given Gabapentin (Gabapentin 300 Mg Capsule) 600 mg PO BID [facility] Last Admin: 09/29/21 08:26 Dose: 600 mg Sodium Chloride (Normal Saline 0.9%) 1,000 mls @ 125 mls/hr IV .Q8H [facility] Last Admin: 09/29/21 13:50 Dose: 125 mls/hr Insulin Aspart (Insulin Aspart 300 Unit/3 Ml Pen) 1 - 5 unit SUBQ 0800,1200,1700,2100 [facility]; Protocol Last Admin: 09/29/21 11:59 Dose: Not Given Latanoprost (Latanoprost 0.005% Ophth Drops) 1 drops EACHEYE QPM [facility] Last Admin: 09/28/21 20:54 Dose: Not Given Levothyroxine Sodium (Levothyroxine 75 Mcg Tablet) 75 mcg PO QDAC [facility] Last Admin: 09/29/21 05:00 Dose: 75 mcg Lidocaine (Lidocaine Patch 5%) 1 patch TOP DAILY [facility] Last Admin: 09/29/21 08:24 Dose: 1 patch Lisinopril (Lisinopril 20 Mg Tablet) 40 mg PO DAILY [facility] Last Admin: 09/29/21 08:25 Dose: 40 mg Morphine Sulfate (Morphine 2 Mg/Ml Carpuject) 2 mg IVP Q2HR PRN PRN Reason: PAIN Last Admin: 09/27/21 00:18 Dose: 2 mg Multivitamins (Multivitamin Tablet) 1 tab PO DAILYWM [facility] Last Admin: 09/29/21 08:26 Dose: 1 tab Ondansetron HCl (Ondansetron 4 Mg/2 Ml Vial) 4 mg IVP Q6HR PRN PRN Reason: Nausea / Vomiting Oxybutynin Chloride (Oxybutynin 5mg Tablet) 5 mg PO BID [facility] Last Admin: 09/29/21 08:33 Dose: 5 mg Senna (Senna 8.6 Mg Tablet) 8.6 - 17.2 mg PO DAILY [facility] Last Admin: 09/29/21 08:25 Dose: 8.6 mg Sodium Chloride (Sodium Chloride Flush 0.9% 10 Ml Syringe) 10 ml IVP PRN PRN PRN Reason: NEEDED PER PROVIDER ORDERS Sodium Chloride (Sodium Chloride Flush 0.9% 10 Ml Syringe) 10 ml IVP 0100,0 900,1700 [facility] Last Admin: 09/29/21 08:30 Dose: 10 ml Timolol Maleate (Timolol 0.5% Ophth Drops) 1 drops EACHEYE BID [facility] Last Admin: 09/29/21 08:29 Dose: Not Given Verapamil HCl (Verapamil Er 180 Mg Tablet) 180 mg PO BID [facility] Last Admin: 09/29/21 08:25 Dose: 180 mg Aspirin [Adult Low Dose Aspirin EC] 1 tab ORAL DAILY 01/06/14 Fluticasone [Flonase] 1 spray ANNA BID 01/06/14 Gabapentin 600 mg PO BID 01/06/14 Levothyroxine [Synthroid] 75 mcg PO QDAC 01/06/14 Metformin HCl [Glucophage] 1,000 mg ORAL BID 01/06/14 Multivitamin [Multi Vitamin Daily] 1 tab PO DAILY 01/06/14 Atorvastatin Calcium 40 mg PO QPM 09/27/21 Latanoprost 0.005% Ophth Drops [Xalatan Ophth Drops] 1 drops EACHEYE QPM 09/27/21 Omeprazole Magnesium 20 mg PO BIDAC 09/27/21 Oxybutynin [Ditropan] 5 mg PO BID 09/27/21 Spironolactone [Aldactone] 50 mg PO DAILY 09/27/21 Timolol Maleate [Timoptic] 1 drops EACHEYE BID 09/27/21 Verapamil ER [Calan SA] 180 mg PO BID 09/27/21 lisinopriL [Lisinopril] 40 mg PO DAILY 09/27/21 polyethylene glycoL 3350 [Miralax] 17 gm PO DAILY 09/27/21 Objective - Vital Signs/Intake & Output Reviewed Vital Signs: Yes Vital Signs: Vital Signs x48h Temp Pulse Resp BP BP Pulse Ox 09/29/21 12:49 84 136/73 H 09/29/21 12:45 37.4 C 81 18 142/108 H 163/61 H 100 09/29/21 07:50 36.7 C 58 L 16 141/57 H 98 Intake & Output: Intake & Output 09/26/21 09/27/21 09/28/21 09/29/21 23:59 23:59 23:59 23:59 Intake Total 1626 3896.333 3575.667 1350 Output Total 1200 2100 2550 2250 Balance 426 3255.908 9199.667 -900 - Objective General Appearance: positive: No acute distress, Alert Eyes Bilateral: positive: Normal inspection, Conjunctivae nml ENT: positive: ENT inspection nml Neck: positive: Nml inspection Respiratory: positive: No respiratory distress. negative: Wheezes Cardiovascular: positive: Regular rate & rhythm, No murmur. negative: Tachyca rdia Abdomen: positive: Non-tender, No distention. negative: Tenderness Back: positive: Other (Left paraspinal tenderness. Lidocaine patch in place.) Skin: positive: Warm, Dry Extremities: positive: No pedal edema Neurologic/Psychiatric: negative: Disoriented to person, Disoriented to place - Lab Results Fish Bones: 09/29/21 07:30 09/29/21 12:30 Other Labs: Lab Results x24hrs 09/29/21 09/29/21 09/29/21 Range/Units 12:30 11:09 07:39 WBC (4.8-10.8) x10^3/uL RBC (4.20-5.40) 10^6/uL Hgb (12.0-16.0) g/dL Hct (37.0-47.0) % MCV (81.0-99.0) fL MCH (27.0-31.0) pg MCHC (32.0-36.0) g/dL RDW (12.0-15.0) % Plt Count (130-450) 10^3/uL MPV (7.9-10.8) fL Neut # (Auto) (1.5-6.6) 10^3/uL Lymph # (Auto) (1.5-3.5) 10^3/uL [place] # (Auto) (0.0-1.0) 10^3/uL Eos # (Auto) (0.0-0.7) 10^3/uL Baso # (Auto) (0.0-0.1) 10^3/uL Absolute Nucleated RBC x10^3/uL Nucleated RBC % /100WBC Sodium 127 L (135-145) mmol/L Potassium 3.9 (3.5-5.0) mmol/L Chloride 91 L (101-111) mmol/L Carbon Dioxide 26 (21-32) mmol/L Anion Gap 10.0 (6-13) BUN 16 (6-20) mg/dL Creatinine 1.0 (0.4-1.0) mg/dL Estimated GFR (MDRD) 54 L (>89) Glucose 115 H (70-100) mg/dL POC Whole Bld Glucose 138 H 99 (70 - 100) mg/dL Calcium 9.5 (8.5-10.3) mg/dL Procalcitonin (<0.5) ng/mL Urine Color Urine Clarity (CLEAR) Urine pH (5.0-7.5) PH Ur Specific [place] (1.002-1.030) Urine Protein (NEGATIVE) mg/dL Urine Glucose (UA) (NEGATIVE) mg/dL Urine Ketones (NEGATIVE) mg/dL Urine Occult Blood (NEGATIVE) Urine Nitrite (NEGATIVE) Urine Bilirubin (NEGATIVE) Urine Urobilinogen (NORMAL) E.U./dL Ur Leukocyte Esterase (NEGATIVE) Urine RBC (0-5) /HPF Urine WBC (0-5) /HPF Ur Squamous Epith Cells (<= Few) Urine Bacteria (None Seen) /HPF Urine Culture Comments 09/29/21 09/29/21 09/29/21 Range/Units 07:30 07:30 07:30 WBC 8.0 (4.8-10.8) x10^3/uL RBC 3.16 L (4.20-5.40) 10^6/uL Hgb 10.1 L (12.0-16.0) g/dL Hct 29.5 L (37.0-47.0) % MCV 93.4 (81.0-99.0) fL MCH 32.0 H (27.0-31.0) pg MCHC 34.2 (32.0-36.0) g/dL RDW 14.4 (12.0-15.0) % Plt Count 249 (130-450) 10^3/uL MPV 9.3 (7.9-10.8) fL Neut # (Auto) 5.5 (1.5-6.6) 10^3/uL Lymph # (Auto) 1.1 L (1.5-3.5) 10^3/uL [place] # (Auto) 0.7 (0.0-1.0) 10^3/uL Eos # (Auto) 0.6 (0.0-0.7) 10^3/uL Baso # (Auto) 0.1 (0.0-0.1) 10^3/uL Absolute Nucleated RBC 0.00 x10^3/uL Nucleated RBC % 0.0 /100WBC Sodium 129 L (135-145) mmol/L Potassium 4.2 (3.5-5.0) mmol/L Chloride 94 L (101-111) mmol/L Carbon Dioxide 25 (21-32) mmol/L Anion Gap 10.0 (6-13) BUN 17 (6-20) mg/dL Creatinine 1.1 H (0.4-1.0) mg/dL Estimated GFR (MDRD) 48 L (>89) Glucose 108 H (70-100) mg/dL POC Whole Bld Glucose (70 - 100) mg/dL Calcium 9.1 (8.5-10.3) mg/dL Procalcitonin 0.17 (<0.5) ng/mL Urine Color Urine Clarity (CLEAR) Urine pH (5.0-7.5) PH Ur Specific [place] (1.002-1.030) Urine Protein (NEGATIVE) mg/dL Urine Glucose (UA) (NEGATIVE) mg/dL Urine Ketones (NEGATIVE) mg/dL Urine Occult Blood (NEGATIVE) Urine Nitrite (NEGATIVE) Urine Bilirubin (NEGATIVE) Urine Urobilinogen (NORMAL) E.U./dL Ur Leukocyte Esterase (NEGATIVE) Urine RBC (0-5) /HPF Urine WBC (0-5) /HPF Ur Squamous Epith Cells (<= Few) Urine Bacteria (None Seen) /HPF Urine Culture Comments 09/29/21 09/28/21 09/28/21 Range/Units 04:30 20:37 13:42 WBC (4.8-10.8) x10^3/uL RBC (4.20-5.40) 10^6/uL Hgb (12.0-16.0) g/dL Hct (37.0-47.0) % MCV (81.0-99.0) fL MCH (27.0-31.0) pg MCHC (32.0-36.0) g/dL RDW (12.0-15.0) % Plt Count (130-450) 10^3/uL MPV (7.9-10.8) fL Neut # (Auto) (1.5-6.6) 10^3/uL Lymph # (Auto) (1.5-3.5) 10^3/uL [place] # (Auto) (0.0-1.0) 10^3/uL Eos # (Auto) (0.0-0.7) 10^3/uL Baso # (Auto) (0.0-0.1) 10^3/uL Absolute Nucleated RBC x10^3/uL Nucleated RBC % /100WBC Sodium 133 L (135-145) mmol/L Potassium 4.1 (3.5-5.0) mmol/L Chloride 97 L (101-111) mmol/L Carbon Dioxide 25 (21-32) mmol/L Anion Gap 11.0 (6-13) BUN 16 (6-20) mg/dL Creatinine 1.2 H (0.4-1.0) mg/dL Estimated GFR (MDRD) 44 L (>89) Glucose 110 H (70-100) mg/dL POC Whole Bld Glucose 141 H (70 - 100) mg/dL Calcium 9.6 (8.5-10.3) mg/dL Procalcitonin (<0.5) ng/mL Urine Color YELLOW Urine Clarity CLEAR (CLEAR) Urine pH 6.0 (5.0-7.5) PH Ur Specific [place] 1.010 (1.002-1.030) Urine Protein NEGATIVE (NEGATIVE) mg/dL Urine Glucose (UA) NEGATIVE (NEGATIVE) mg/dL Urine Ketones NEGATIVE (NEGATIVE) mg/dL Urine Occult Blood LARGE H (NEGATIVE) Urine Nitrite NEGATIVE (NEGATIVE) Urine Bilirubin NEGATIVE (NEGATIVE) Urine Urobilinogen 0.2 (NORMAL) (NORMAL) E.U./dL Ur Leukocyte Esterase NEGATIVE (NEGATIVE) Urine RBC 6-10 H (0-5) /HPF Urine WBC 0-3 (0-5) /HPF Ur Squamous Epith Cells RARE Squamous (<= Few) Urine Bacteria Rare (None Seen) /HPF Urine Culture Comments NOT INDICATED Assessment/Plan - Problem List (1) Hyponatremia Impression: Her sodium decrease this morning to 129 but we are still hoping to discharge her home as long as repeat at around noon was stable or improving. Unfortunate has declined to 127 she will keep her hospitalized for least 1 more day. We suspect this is hypovolemic hyponatremia related to the use of spironolactone. She does admit to excess free water intake at home so we will put her back on normal saline throughout the night and started on a free water restriction. We will check a urine sodium and urine osmolality although this is a send out lab and may not be back until tomorrow. Recheck BMP in the morning. If above 130 and stable we will look to discharge her home. (2) Pneumonia Impression: She had a fever overnight and x-ray suggested a possible left lower lobe infiltrate. Although she has no dyspnea or leukocytosis, she does have a slight cough and given her recent fall with left-sided pain this could lead to atelectasis or pneumonia. We will treat her presumptively with Augmentin and azithromycin. We will follow-up blood cultures. Plan will be to treat for at least 5 days on discharge. (3) Low back pain Impression: This is secondary to the fall. Imaging revealed no obvious fracture. Her pain is improved with the lidocaine patch as well as Flexeril. We will continue these and Tylenol as needed. Qualifiers: Chronicity: acute Back pain laterality: left Sciatica presence: without sciatica Qualified Code(s): M54.50 - Low back pain, unspecified (4) Hypertension Impression: Her blood pressure is well controlled with the lisinopril and verapamil which she will continue. (5) Hypothyroidism Impression: Continue Synthroid. (6) Obstructive sleep apnea on CPAP Impression: Continue CPAP. (7) Diabetes mellitus Impression: Continue carb controlled diet. We will resume metformin on discharge. Qualifiers: Diabetes mellitus type: type 2
[2021-09-29] MEDS: SODIUM CHLORIDE 0.9% 1,000 ML IV SCH ×2 (13:50→21:52)
[2021-09-29] MEDS: LATANOPROST 0.005% OPHTH DROPS EACHEYE SCH (21:18)
[2021-09-29] MEDS: ACETAMINOPHEN 325 MG TABLET PO PRN (21:18)
[2021-09-29] MEDS: ATORVASTATIN 40 MG TABLET PO SCH (21:18)
[2021-09-30] MEDS: CYCLOBENZAPRINE 10 MG TABLET PO PRN (04:28)
[2021-09-30] MEDS: SODIUM CHLORIDE 0.9% 1,000 ML IV SCH (04:28)
[2021-09-30] MEDS: LEVOTHYROXINE 75 MCG TABLET PO SCH (06:13)
[2021-09-30 06:28] LABS: BASOPHILS % (AUTO) 0.6 %; EOSINOPHILS # (AUTO) 0.7 10^3/uL (0.0-0.7); EOSINOPHILS % (AUTO) 10.2 %; HCT - HEMATOCRIT 27.1 % (37.0-47.0); HGB - HEMOGLOBIN 9.1 g/dL (12.0-16.0); LYMPHOCYTES % (AUTO) 15.4 %; MEAN CORPUSCULAR HEMOGLOBIN 31.3 pg (27.0-31.0); MEAN CORPUSCULAR HGB CONC 33.6 g/dL (32.0-36.0); MEAN CORPUSCULAR VOLUME 93.1 fL (81.0-99.0); MONOCYTES # (AUTO) 0.7 10^3/uL (0.0-1.0); MONOCYTES % (AUTO) 10.4 %; NEUTROPHILS # (AUTO) 4.1 10^3/uL (1.5-6.6); NEUTROPHILS % (AUTO) 63.1 %; PLT - PLATELET COUNT 241 10^3/uL (130-450); RED BLOOD COUNT 2.91 10^6/uL (4.20-5.40); RED CELL DISTRIBUTION WIDTH 14.4 % (12.0-15.0); WHITE BLOOD COUNT 6.6 x10^3/uL (4.8-10.8)
[2021-09-30 06:35] LABS: CALCIUM 8.7 mg/dL (8.5-10.3); POTASSIUM 3.8 mmol/L (3.5-5.0)
[2021-09-30] MEDS ORDERED: AZITHROMYCIN 250 MG TABLET PO SCH (09:00)
--- NOTE | 2021-09-30 09:16 | Discharge Plan ---
Discharge Plan Problem Reviewed?: Yes Disposition: Home, Self Care Condition: Stable Prescriptions: Amox/Clav 875/125 [Augmentin 875/125 Tab] 1 tab PO BID 3 Days #7 tablet Cyclobenzaprine [Flexeril] 10 mg PO TID PRN #15 tablet PRN Reason: Spasms Saccharomyces Boulardii [Florastor] 250 mg PO BIDWM 7 Days #14 cap Lidocaine Patch 5% [Lidoderm Patch] 1 patch TOP DAILY #7 patch Azithromycin [Zithromax] 250 mg PO DAILY 3 Days #3 tablet Diet: Diabetic Activity Restrictions: Activity as Tolerated Health Concerns: You were admitted to the hospital because of low sodium which was likely due to the use of spironolactone and excess water consumption. We daily with IV fluids and you have had improvement in your sodium. We will discontinue the spironolactone on discharge. He also developed a fever prior to discharge. There is no obvious source of infection except for potential small left-sided pneumonia. We have started on antibiotics empirically for this. We did retest you again for COVID and this is negative. Please continue the antibiotics as prescribed. Plan of Treatment: Please stop taking the spironolactone. Please limit your overall water consumption to about 2 L a day. Excess water consumption can cause low sodium. Please take Augmentin twice daily and azithromycin once a day until October 03. This is to complete 5 days of therapy for possible pneumonia. A prescription was also sent for a probiotic to take while you are on the antibiotics. We have prescribed you Flexeril and a lidocaine patch to help with your left- sided back pain. You may continue take Tylenol as needed. Assessment: The patient expressed understanding of the treatment plan. Additional Instructions or Follow Up instructions: Please follow-up with your primary care physician in 1 to 2 weeks. They can check labs again to ensure your sodium is stable. Please return to the emergency department if you develop any shortness of breath, chills. No Smoking: If you smoke, Please STOP! Call for help. Follow-up with: Gosia Michaud ARNP [Primary Care Provider] -
--- NOTE | 2021-09-30 09:18 | DISCHARGE SUMMARY ---
Discharge Summary Admit Date: 09/26/21 Discharge Date: 09/30/21 Discharging Provider: Smooth Dickerson Primary Care Provider: Gosia Michaud Code Status: Attempt Resuscitation Condition at Discharge: Stable Discharge Disposition: 01 Home, Self Care - DIAGNOSES Admission Diagnoses: Hyponatremia Dehydration Low back pain Fall Hypertension Diabetes mellitus Hyperlipidemia Hypothyroidism TEMO on CPAP Discharge Diagnoses with Status of Each Condition: Hyponatremia - improved. Pneumonia - improved. Low back pain - improved. Hypertension - stable. Hypothyroidism - stable. TEMO on CPAP - stable. Type 2 diabetes mellitus - stable. - HPI History of Present Illness: H&P per Dr. Clemente: Patient is a 76-year-old female who presented to the ED after a fall last night. She had been sitting on the couch talking to her daughter on the phone. She woke up to go to bed, turned off the fireplace then fell backwards. She is unable to explain further the sequence of events that led to her fall because she says it happened very fast. She did not hit her head or blackout. She fell onto her left back/side. She took 2 ibuprofen and went to bed. This morning she came to the ED for evaluation because of pain on the left side. She also reported feeling dizzy and weak for 1 week. Work-up in the ED included x-rays Ribs with chest which were unremarkable. However she was noted to have a sodium level of 122 and potassium of 5.2. She is on lisinopril/hydrochlorothiazide combination and chlorthalidone. As a result of her sodium level she was presented for admission for further hydration. At bedside she denies chest pain, dyspnea, abdominal pain, nausea, vomiting or fever. She reported being very cold last night despite a temperature of 72 degrees in her house. Rest of history was unremarkable. - HOSPITAL COURSE Hospital Course: She was admitted to the floor after she was noted to have hyponatremia in the emergency department. This was felt to be hypovolemic hyponatremia secondary to her spironolactone and she was treated with IV fluids. Her sodium did slowly improve and we discontinue the IV fluids. Unfortunately her sodium began to decrease again and so the IV fluids were resumed. After obtaining further history and the patient, it appears she has been drinking excess amounts of water which may have also been contributing to the hyponatremia. Therefore put her on a free water restriction and continued her on gentle IV hydration with improvement in her sodium to 132 on day of discharge. She was instructed to discontinue spironolactone on discharge and to limit her fluid intake to 2 L a day. She will follow-up with her primary care physician in 2 weeks and will have repeat labs at that time. 2 days prior to discharge she noted to have a low-grade fever was otherwise asymptomatic. Cultures have been negative to date including blood cultures. Urinalysis was unremarkable. X-ray revealed a possible infiltrate and given her fever we treat her presumptively with Augmentin and azithromycin. She was prescribed both of these on discharge for 3 more days to complete 5 days of therapy. She was also prescribed Florastor with a probiotic. She had left-sided back pain after her fall at home but there is no evidence of fracture. She treated with Flexeril, lidocaine patch, Tylenol as needed with improvement in her pain. She was given a prescription for Flexeril and lidocaine on discharge and instructed to continue the Tylenol as needed. - ALLERGIES Allergies/Adverse Reactions: Allergies Allergy/AdvReac Type Severity Reaction Status Date / Time latex Allergy Mild Rash Verified 09/26/21 16:47 pollen extracts Allergy Mild Respiratory Verified 09/26/21 16:47 Sulfa (Sulfonamide Allergy Mild Rash Verified 01/06/14 13:33 Antibiotics) - MEDICATIONS Home Medications: Ambulatory Orders Medication Instructions Recorded Confirmed Aspirin [Adult Low Dose Aspirin EC] 1 tab ORAL DAILY 01/06/14 09/27/21 Fluticasone [Flonase] 1 spray ANNA BID 01/06/14 09/27/21 Gabapentin 600 mg PO BID 01/06/14 09/27/21 Levothyroxine [Synthroid] 75 mcg PO QDAC 01/06/14 09/27/21 Metformin HCl [Glucophage] 1,000 mg ORAL BID 01/06/14 09/27/21 Multivitamin [Multi-Vitamin Daily] 1 tab PO DAILY 01/06/14 09/27/21 Atorvastatin Calcium 40 mg PO QPM 09/27/21 09/27/21 Latanoprost 0.005% Ophth Drops 1 drops EACHEYE QPM 09/27/21 09/27/21 [Xalatan Ophth Drops] Omeprazole Magnesium 20 mg PO BIDAC 09/27/21 09/27/21 Oxybutynin [Ditropan] 5 mg PO BID 09/27/21 09/27/21 Timolol Maleate [Timoptic] 1 drops EACHEYE BID 09/27/21 09/27/21 Verapamil ER [Calan SA] 180 mg PO BID 09/27/21 09/27/21 lisinopriL [Lisinopril] 40 mg PO DAILY 09/27/21 09/27/21 polyethylene glycoL 3350 [Miralax] 17 gm PO DAILY 09/27/21 09/27/21 Amox/Clav 875/125 [Augmentin 1 tab PO BID 3 Days #7 tablet 09/30/21 875/125 Tab] Azithromycin [Zithromax] 250 mg PO DAILY 3 Days #3 tablet 09/30/21 Cyclobenzaprine [Flexeril] 10 mg PO TID PRN #15 tablet 09/30/21 Lidocaine Patch 5% [Lidoderm Patch] 1 patch TOP DAILY #7 patch 09/30/21 Saccharomyces Boulardii [Florastor] 250 mg PO BIDWM 7 Days #14 cap 09/30/21 - PHYSICAL EXAM AT DISCHARGE General Appearance: positive: No acute distress, Alert Eyes Bilateral: positive: Normal inspection, Conjunctivae nml ENT: positive: ENT inspection nml Neck: positive: Nml inspection Respiratory: positive: No respiratory distress. negative: Wheezes, Rales Cardiovascular: positive: Regular rate & rhythm, No murmur. negative: Tachycardia Abdomen: positive: Non-tender, No distention. negative: Tenderness Back: positive: Other (Lidocaine patch in place over the left paraspinal muscle. There is mild tenderness. No lumbar or thoracic spine tenderness.) Skin: negative: Warm, Dry Extremities: positive: No pedal edema Neurologic/Psychiatric: positive: Motor nml. negative: Disoriented to place, Disoriented to time Physical Exam Other/Comments: Vital Signs - 8 hr 09/30/21 09/30/21 09/30/21 07:30 11:20 12:53 Temperature 36.9 C Heart Rate [ 64 71 82 Brachial] Respiratory 20 18 Rate Blood Pressure 121/46 L [Left Brachial artery] Blood Pressure 158/74 H [Right Brachial artery] O2 Saturation 92 95 96 - LABS Result Diagrams: 09/30/21 05:45 09/30/21 05:45 - DIAGNOSTIC IMAGING Diagnostic Imaging Results: Final report reviewed - FOLLOW UP Follow Up: She will be following up with her primary care physician on October 10. I did suggest that she have repeat labs at that time to ensure her sodium is stable. She was instructed to return to emergency department for any worsening fevers, chills, shortness of breath. - TIME SPENT Time Spent in Discharge (Minutes): 35
[2021-09-30] MEDS: LIDOCAINE PATCH 5% TOP SCH (09:29)
[2021-09-30] MEDS: GABAPENTIN 300 MG CAPSULE PO SCH (09:32)
[2021-09-30] MEDS: lisinopriL 20 MG TABLET PO SCH (09:32)
[2021-09-30] MEDS: SENNA 8.6 MG TABLET PO SCH (09:33)
[2021-09-30] MEDS: DOCUSATE SODIUM 250 MG CAPSULE PO SCH (09:33)
[2021-09-30] MEDS: MULTIVITAMIN TABLET PO SCH (09:33)
[2021-09-30] MEDS: OXYBUTYNIN 5MG TABLET PO SCH (09:33)
[2021-09-30] MEDS: VERAPAMIL ER 180 MG TABLET PO SCH (09:33)
[2021-09-30] MEDS: ASPIRIN EC 81 MG TABLET PO SCH (09:33)
[2021-09-30] MEDS: AMOX/CLAV 875 MG/125 MG TABLET PO SCH (09:34)
[2021-09-30] MEDS: FLUTICASONE NASAL SPRAY NAS SCH (10:11)
[2021-09-30] MEDS: TIMOLOL 0.5% OPHTH DROPS EACHEYE SCH ×2 (10:11→10:15)
[2021-09-30] MEDS: SODIUM CHLORIDE FLUSH 0.9% 10 ML SYRINGE IVP SCH (10:15)
[2021-09-30] MEDS: INSULIN ASPART 300 UNIT/3 ML PEN SUBQ SCH ×2 (10:15→12:47)
[2021-09-30 11:47] LABS: B. PARAPERTUSSIS- RESP PCR PAN NOT DETECTED; B. PERTUSSIS- RESP PCR PANEL NOT DETECTED; C. PNEUMONIAE- RESP PCR PANEL NOT DETECTED; CORONAVIRUS 229E-RESP PCR NOT DETECTED; CORONAVIRUS HKU1-RESP PCR NOT DETECTED; CORONAVIRUS NL63-RESP PCR NOT DETECTED; CORONAVIRUS OC43-RESP PCR NOT DETECTED; HUMAN METAPNEUMOVIRUS NOT DETECTED; INFLUENZA A- RESP PCR PANEL NOT DETECTED; INFLUENZA B - RESP PCR PANEL NOT DETECTED; M. PNEUMONIAE- RESP PCR PANEL NOT DETECTED; PARAINFLUENZA VIRUS 1 NOT DETECTED; PARAINFLUENZA VIRUS 2 NOT DETECTED; PARAINFLUENZA VIRUS 3 NOT DETECTED; PARAINFLUENZA VIRUS 4 NOT DETECTED; RHINOVIRUS/ENTEROVIRUS NOT DETECTED; RSV- RESP PCR PANEL NOT DETECTED; SARS-CoV-2 -RESP PCR PANEL NOT DETECTED
[2021-09-30 12:54] VITALS: BP 158/74
== END 2021-09-30 14:11 | disposition home or self-care (01) | DRG 640 ==
LOC: ED 13:29 → MS2 15:37 → OBSVTOIN 09-27 17:51
PROVIDERS: ADMIT Internal Medicine; ATTEND Internal Medicine
DX: E87.1 Hypo-osmolality and hyponatremia (principal); J18.9 Pneumonia, unspecified organism; T50.0X5A Adverse effect of mineralocorticoids and their antagonists, initial encounter; E86.0 Dehydration; R07.81 Pleurodynia; W19.XXXA Unspecified fall, initial encounter; M54.50 Low back pain, unspecified; M79.7 Fibromyalgia; I10 Essential (primary) hypertension; F32.A Depression, unspecified; F41.9 Anxiety disorder, unspecified; G47.33 Obstructive sleep apnea (adult) (pediatric); E03.9 Hypothyroidism, unspecified; E11.9 Type 2 diabetes mellitus without complications; E78.00 Pure hypercholesterolemia, unspecified; Z20.822 Contact with and (suspected) exposure to COVID-19; Z79.82 Long term (current) use of aspirin; Z79.84 Long term (current) use of oral hypoglycemic drugs; Z79.890 Hormone replacement therapy; Z79.899 Other long term (current) drug therapy; Z80.3 Family history of malignant neoplasm of breast; Z82.49 Family history of ischemic heart disease and other diseases of the circulatory system; Z86.010 Personal history of colon polyps
CPT/HCPCS: 36415; 71045; 71101; 80048; 80053; 81001; 81003; 83036; 83690; 83935; 84145; 84300; 84484; 85025; 86140; 87040; 87633; 93005; 96361; 96374; 96375; 96376; 99285; A9270; 87086

== ENCOUNTER 2021-10-25 11:15 | Outpatient (CLI) | payer MEDICARE, OTHER ==
[2021-10-25 11:36] LABS: BASOPHILS % (AUTO) 0.7 %; EOSINOPHILS # (AUTO) 0.2 10^3/uL (0.0-0.7); EOSINOPHILS % (AUTO) 5.2 %; HCT - HEMATOCRIT 32.5 % (37.0-47.0); HGB - HEMOGLOBIN 10.4 g/dL (12.0-16.0); LYMPHOCYTES # (AUTO) 1.5 10^3/uL (1.5-3.5); LYMPHOCYTES % (AUTO) 34.2 %; MEAN CORPUSCULAR HEMOGLOBIN 31.3 pg (27.0-31.0); MEAN CORPUSCULAR VOLUME 97.9 fL (81.0-99.0); MEAN PLATELET VOLUME 10.9 fL (7.9-10.8); MONOCYTES # (AUTO) 0.4 10^3/uL (0.0-1.0); MONOCYTES % (AUTO) 8.4 %; NEUTROPHILS # (AUTO) 2.2 10^3/uL (1.5-6.6); PLT - PLATELET COUNT 193 10^3/uL (130-450); RED BLOOD COUNT 3.32 10^6/uL (4.20-5.40); RED CELL DISTRIBUTION WIDTH 15.5 % (12.0-15.0); WHITE BLOOD COUNT 4.3 x10^3/uL (4.8-10.8)
[2021-10-25 11:54] LABS: % IRON SATURATION 15 % (20-50); IRON 58 ug/dL (28-170); TOTAL IRON BINDING CAPACITY 385 ug/dL (250-450); TRANSFERRIN 275 mg/dL (192-382)
== END 2021-10-25 11:16 | disposition home or self-care (01) ==
LOC: LAB 11:15
PROVIDERS: ATTEND Nurse Practitioner Family
DX: D64.9 Anemia, unspecified (principal); R42 Dizziness and giddiness
CPT/HCPCS: 36415; 82728; 83540; 84466; 85025

== ENCOUNTER 2021-11-22 13:41 | Outpatient (CLI) | payer MEDICARE, OTHER ==
--- NOTE | 2021-11-23 11:10 | Mammography Report ---
BILATERAL DIGITAL SCREENING MAMMOGRAM 3D/2D: 11/22/2021 CLINICAL: Routine screening. Comparison is made to exams dated: 09/14/2020 mammogram, 12/26/2018 mammogram, 12/05/2017 mammogram, mammogram, 11/26/2014 mammogram, and 09/24/2013 mammogram - [facility]. There are scattered areas of fibroglandular density in both breasts (category b / 25%-50% glandular t issue). No significant masses, calcifications, or other findings are seen in either breast. There has been no significant interval change. IMPRESSION: NEGATIVE There is no mammographic evidence of malignancy. A 1 year screening mammogram is recommended. Based on the Tyrer Cuzick model (a risk assessment model) the patients lifetime risk is 6.4% and her 10 year risk is 0.0%. According to the ACR, ACS, and NCCN guidelines, an annual breast MRI exam sravanthi g with mammogram is recommended if the patients lifetime risk is 20% or greater. This exam was interpreted at Station ID: [id number]. NOTE: For mammograms, a report in lay terms will be sent to the patient. Approximately 15% of breast malignancies will not be visualized mammographically. In the management of a palpable breast mass, a negative mammogram must not discourage biopsy of a clinically suspicious lesion. Electronically Signed By: Gumaro Cole M.D. atlisa/vyrad:11/22/2021 17:25:00 ACR BI-RADS Category 1: Negative 3341F PARENCHYMAL PATTERN: (A) - The breast(s) demonstrate(s) scattered fibroglandular densities. BI-RADS CATEGORY: (1) - 1 RECOMMENDATION: (ANNUAL) - Recommend routine annual screening mammography. [id number] 1 year screening LATERALITY: (B)
== END 2021-11-22 13:42 | disposition home or self-care (01) ==
LOC: DI 13:41
DX: Z12.31 Encounter for screening mammogram for malignant neoplasm of breast (principal)

== ENCOUNTER 2021-11-22 14:15 | Outpatient (CLI) | payer MEDICARE, OTHER ==
--- NOTE | 2021-11-22 18:25 | XRAY Report ---
PROCEDURE: Ankle 3 View LT INDICATIONS: LEFT ANKLE LT FOOT PAIN TECHNIQUE: 3 views of the ankle were acquired. COMPARISON: None FINDINGS: Bones: No fractures or dislocations. Ankle mortise is normally aligned. No suspicious bony lesions . Soft tissues: No tibiotalar joint effusion. Achilles tendon appears normal. IMPRESSION: Unremarkable left foot radiographs Reviewed by: Lacho Gould MD on 11/22/2021 5:24 PM AKDT Approved by: Lacho Gould MD on 11/22/2021 5:24 PM AKDT Station ID: [id number]
--- NOTE | 2021-11-22 18:26 | XRAY Report ---
PROCEDURE: Foot 2 View LT INDICATIONS: LEFT ANKLE LT FOOT PAIN TECHNIQUE: 2 views of the foot were acquired. COMPARISON: None FINDINGS: Bones: No fractures or dislocations. No suspicious bony lesions. Soft tissues: No tibiotalar joint effusion. Achilles tendon appears normal. IMPRESSION: Unremarkable left foot radiographs Reviewed by: Lacho Gould MD on 11/22/2021 5:25 PM AKDT Approved by: Lacho Gould MD on 11/22/2021 5:25 PM AKDT Station ID: [id number]
== END 2021-11-22 14:16 | disposition home or self-care (01) ==
LOC: DI 14:15
PROVIDERS: ATTEND Nurse Practitioner
DX: M25.572 Pain in left ankle and joints of left foot (principal)

== ENCOUNTER 2022-01-11 09:05 | Outpatient (CLI) | payer MEDICARE, OTHER ==
[2022-01-11 09:23] LABS: BASOPHILS % (AUTO) 0.3 %; EOSINOPHILS # (AUTO) 0.2 10^3/uL (0.0-0.7); EOSINOPHILS % (AUTO) 3.3 %; HCT - HEMATOCRIT 38.1 % (37.0-47.0); HGB - HEMOGLOBIN 12.1 g/dL (12.0-16.0); LYMPHOCYTES # (AUTO) 1.5 10^3/uL (1.5-3.5); LYMPHOCYTES % (AUTO) 25.1 %; MEAN CORPUSCULAR HEMOGLOBIN 29.5 pg (27.0-31.0); MEAN CORPUSCULAR HGB CONC 31.8 g/dL (32.0-36.0); MEAN CORPUSCULAR VOLUME 92.9 fL (81.0-99.0); MEAN PLATELET VOLUME 11.5 fL (7.9-10.8); MONOCYTES # (AUTO) 0.5 10^3/uL (0.0-1.0); MONOCYTES % (AUTO) 8.6 %; NEUTROPHILS # (AUTO) 3.8 10^3/uL (1.5-6.6); NEUTROPHILS % (AUTO) 62.4 %; PLT - PLATELET COUNT 194 10^3/uL (130-450); WHITE BLOOD COUNT 6.1 x10^3/uL (4.8-10.8)
== END 2022-01-11 09:06 | disposition home or self-care (01) ==
LOC: LAB 09:05
PROVIDERS: ATTEND Nurse Practitioner
DX: R42 Dizziness and giddiness (principal)
CPT/HCPCS: 36415; 85025

== ENCOUNTER 2022-01-13 07:15 | Day surgery (SDC) | payer MEDICARE, OTHER ==
[2022-01-13] MEDS ORDERED: LACTATED RINGERS 1,000 ML IV ONE ×2 (07:29→09:21)
--- NOTE | 2022-01-13 08:19 | ANESTHESIA ---
Pre-Anesthesia VS, & Labs - Diagnosis screening, anemia - Procedure EGD, colonoscopy Vital Signs: Temp Pulse Resp BP Pulse Ox O2 Flow Rate 36.1 C L 56 L 12 185/81 H 97 0 01/13/22 07:29 01/13/22 07:29 01/13/22 07:29 01/13/22 07:29 01/13/22 07:29 01/13/22 07:29 Height: 5 ft 7 in Weight (kg): 85.5 kg Body Mass Index: 29.5 BMI Classification: Overweight - NPO >8 hours - Is Patient ?: No - Lab Results Current Lab Results: Laboratory Tests 01/13/22 07:35: POC Whole Bld Glucose 126 H Home Medications and Allergies Home Medications: Ambulatory Orders Carvedilol [Coreg] 3.125 mg PO BID 01/13/22 Fluticasone [Flonase] 1 spray ANNA BID 01/06/14 Gabapentin 600 mg PO BID 01/06/14 Levothyroxine [Synthroid] 75 mcg PO QDAC 01/06/14 Metformin HCl [Glucophage] 1,000 mg ORAL BID 01/06/14 Multivitamin [Multi-Vitamin Daily] 1 tab PO DAILY 01/06/14 Atorvastatin Calcium 40 mg PO QPM 09/27/21 Latanoprost 0.005% Ophth Drops [Xalatan Ophth Drops] 1 drops EACHEYE QPM 09/27/21 Omeprazole Magnesium 20 mg PO BIDAC 09/27/21 Oxybutynin [Ditropan] 5 mg PO BID 09/27/21 Verapamil ER [Calan SA] 180 mg PO BID 09/27/21 lisinopriL [Lisinopril] 40 mg PO DAILY 09/27/21 polyethylene glycoL 3350 [Miralax] 17 gm PO DAILY 09/27/21 Carvedilol [Coreg] 3.125 mg PO BID 01/13/22 Allergies/Adverse Reactions: Allergies Allergy/AdvReac Type Severity Reaction Status Date / Time latex Allergy Mild Rash Verified 01/13/22 07:41 pollen extracts Allergy Mild Respiratory Verified 01/13/22 07:41 Sulfa (Sulfonamide Allergy Mild Rash Verified 01/13/22 07:41 Antibiotics) Anes History & Medical History - Anesthetic History Anesthesia Complications: reports: No previous complications - Medical History Cardiovascular: reports: Hypertension, High cholesterol Pulmonary: reports: Sleep apnea, CPAP use Gastrointestinal: reports: GERD, Colon polyps Urinary: reports: Other Musculoskeletal: reports: Fibromyalgia Endocrine/Autoimmune: reports: Type 2 diabetes, HyPOthyroidism Skin: reports: Other Smoking Status: Never smoker History of Cancer?: No - Surgical History General: reports: Colonoscopy Eyes Ears Nose Throat (EENT): reports: Cataracts, Other Cardiothoracic: reports: Other Gynecologic: reports: Dilation and currettage Orthopedic: reports: Carpal Tunnel surgery, Other Exam General: Alert, Oriented x3 Dental: WNL Mouth Opening: Greater than 4 Fingerbreadths Neck Mobility: Normal Mallampati classification: II Thyromental Distance: greater than 6 cm Respiratory: Lungs clear Cardiovascular: Regular rate Plan Anesthesia Type: Total IV Consent for Procedure(s) Verified and Reviewed: Yes Code Status: Attempt Resuscitation ASA classification: 2-Mild systemic disease Is this case an emergency?: Yes
[2022-01-13] MEDS ORDERED: PROPOFOL 500 MG/50 ML 500 MG/50 ML VIAL ONE (08:34)
[2022-01-13] MEDS ORDERED: PROPOFOL 200 MG/20 ML VIAL IVP ONE (09:10)
[2022-01-13] MEDS ORDERED: GLYCOPYRROLATE 1 MG/5 ML VIAL ONE (09:10)
[2022-01-13] MEDS ORDERED: LABETALOL 5 MG/1 ML 20 ML MDV ONE (09:13)
[2022-01-13 10:12] VITALS: BP 151/77
--- NOTE | 2022-01-13 10:29 | ANESTHESIA POST OP EVALUATION ---
Anesthesia Post Eval - Post Anesthesia Eval Vitals: Last Vital Signs Temp 36.0 C L 01/13/22 10:11 Pulse 65 01/13/22 10:11 Resp 18 01/13/22 10:11 BP 151/77 H 01/13/22 10:11 Pulse Ox 95 01/13/22 10:11 O2 Flow Rate 0 01/13/22 07:29 CV Function Including HR & BP: Stable Pain Control: Satisfactory Nausea & Vomiting: Negative Mental Status: Baseline Respiratory Status: Airway Patent Hydration Status: Satisfactory Anesthesia Complications: None
== END 2022-01-13 07:16 | disposition home or self-care (01) ==
LOC: SDS 07:15
PROVIDERS: ATTEND Surgery
DX: Z12.11 Encounter for screening for malignant neoplasm of colon (principal); D64.9 Anemia, unspecified; K57.30 Diverticulosis of large intestine without perforation or abscess without bleeding; K31.7 Polyp of stomach and duodenum; K21.9 Gastro-esophageal reflux disease without esophagitis; E11.9 Type 2 diabetes mellitus without complications; G47.30 Sleep apnea, unspecified; Z79.84 Long term (current) use of oral hypoglycemic drugs; Z79.899 Other long term (current) drug therapy
CPT/HCPCS: 43235; G0121; J7120

== ENCOUNTER 2022-04-04 09:41 | Outpatient (CLI) | payer MEDICARE, OTHER ==
[2022-04-04 09:50] LABS: BASOPHILS # (AUTO) 0.1 10^3/uL (0.0-0.1); BASOPHILS % (AUTO) 0.7 %; EOSINOPHILS # (AUTO) 0.2 10^3/uL (0.0-0.7); EOSINOPHILS % (AUTO) 2.1 %; HGB - HEMOGLOBIN 13.2 g/dL (12.0-16.0); LYMPHOCYTES # (AUTO) 1.9 10^3/uL (1.5-3.5); MEAN CORPUSCULAR HEMOGLOBIN 31.1 pg (27.0-31.0); MEAN CORPUSCULAR HGB CONC 32.2 g/dL (32.0-36.0); MEAN CORPUSCULAR VOLUME 96.5 fL (81.0-99.0); MEAN PLATELET VOLUME 10.7 fL (7.9-10.8); MONOCYTES # (AUTO) 0.6 10^3/uL (0.0-1.0); MONOCYTES % (AUTO) 7.7 %; NEUTROPHILS # (AUTO) 4.4 10^3/uL (1.5-6.6); NEUTROPHILS % (AUTO) 62.4 %; PLT - PLATELET COUNT 216 10^3/uL (130-450); RED BLOOD COUNT 4.25 10^6/uL (4.20-5.40); RED CELL DISTRIBUTION WIDTH 15.9 % (12.0-15.0); WHITE BLOOD COUNT 7.1 x10^3/uL (4.8-10.8)
[2022-04-04 10:12] LABS: ALBUMIN 4.3 g/dL (3.2-5.5); ALBUMIN/GLOBULIN RATIO 1.4 (1.0-2.2); CALCIUM 9.5 mg/dL (8.5-10.3); CREATININE 1.1 mg/dL (0.4-1.0); POTASSIUM 4.1 mmol/L (3.5-5.0); TOTAL PROTEIN 7.3 g/dL (6.7-8.2)
== END 2022-04-04 09:42 | disposition home or self-care (01) ==
LOC: LAB 09:41
PROVIDERS: ATTEND Nurse Practitioner Family
DX: I10 Essential (primary) hypertension (principal); E87.1 Hypo-osmolality and hyponatremia; D64.9 Anemia, unspecified
CPT/HCPCS: 36415; 80053; 82728; 83540; 84466; 85025

== ENCOUNTER 2022-05-08 12:39 | Outpatient (CLI) | payer MEDICARE, OTHER ==
--- NOTE | 2022-05-08 17:54 | DEXA Report ---
PROCEDURE: Dexa Spine and/or Hip INDICATIONS: POST MENOPAUSAL TECHNIQUE: Dual energy x-ray absorptiometry (DXA) was performed on a [employer] System. Regions measur ed are the AP Spine, femoral neck, and if needed forearm. COMPARISON: None. FINDINGS: Lumbar Spine: Bone Mineral Density 1.189 g/cm/cm,T score 0.1, normal Left Femoral Neck: Bone Mineral Density 0.890 g/cm/cm, T score -1.1, osteopenia Left Hip: Bone Mineral Density 0.986 g/cm/cm,T score -0.2, normal (T score greater or equal to -1.0: NORMAL) (T score from -1.1 to -2.4: OSTEOPENIA) (T score less than or equal to -2.5 to: OSTEOPOROSIS) Impression: Left femoral neck osteopenia Patients with diagnosis of osteoporosis or osteopenia should have regular bone mineral density assess ment. For those eligible for Medicare, routine testing is allowed once every 2 years. Testing frequ ency can be increased for patients who have rapidly progressing disease or for those who are receivin g medical therapy to restore bone mass. Reviewed by: Lacho Gould MD on 05/08/2022 4:53 PM AK Approved by: Lacho Gould MD on 05/08/2022 4:53 PM AK Station ID: [id number]
== END 2022-05-08 12:40 | disposition home or self-care (01) ==
LOC: DI 12:39
PROVIDERS: ATTEND Nurse Practitioner Family
DX: Z78.0 Asymptomatic menopausal state (principal); M85.88 Other specified disorders of bone density and structure, other site

== ENCOUNTER 2022-08-01 10:09 | Outpatient (CLI) | payer MEDICARE, OTHER ==
[2022-08-01 10:48] LABS: BUN - BLOOD UREA NITROGEN 17 mg/dL (6-20); CALCIUM 9.5 mg/dL (8.5-10.3); CARBON DIOXIDE - CO2 29 mmol/L (21-32); CHLORIDE 103 mmol/L (101-111); CHOL/HDL RATIO 2.5 (<4.4); CHOLESTEROL 147 mg/dL; GFR - MDRD 54 (>89); GLUCOSE 120 mg/dL (70-100); HDL CHOLESTEROL 60 mg/dL; LDL CHOLESTEROL,CALCULATED 61 mg/dL; SODIUM 140 mmol/L (135-145); TRIGLYCERIDES 130 mg/dL; VLDL CHOLESTEROL 26 mg/dL
[2022-08-01 10:58] LABS: THYROID STIMULATING HORMONE 2.3 uIU/mL (0.34-5.60)
[2022-08-01 12:03] LABS: ESTIMATED AVERAGE GLUCOSE 128 mg/dL (70-100); HEMOGLOBIN A1c% 6.1 % (4.27-6.07)
== END 2022-08-01 10:10 | disposition home or self-care (01) ==
LOC: LAB 10:09
PROVIDERS: ATTEND Nurse Practitioner Family
DX: E11.22 Type 2 diabetes mellitus with diabetic chronic kidney disease (principal); E78.00 Pure hypercholesterolemia, unspecified; E03.9 Hypothyroidism, unspecified
CPT/HCPCS: 36415; 80048; 80061; 83036; 83721; 84443

== ENCOUNTER 2022-08-08 08:00 | Outpatient (CLI) | payer MEDICARE, OTHER ==
[2022-08-08 17:50] LABS: BILIRUBIN,URINE NEGATIVE (NEGATIVE); GLUCOSE, URINE (UA) NEGATIVE (NEGATIVE); KETONES,URINE (UA) NEGATIVE (NEGATIVE); LEUKOCYTE ESTERASE, URINE SMALL (NEGATIVE); NITRITE,URINE NEGATIVE (NEGATIVE); OCCULT BLOOD,URINE MODERATE (NEGATIVE); PH,URINE 7.5 PH (5.0-7.5); PROTEIN,URINE 30 mg/dL (NEGATIVE); UROBILINOGEN,URINE 0.2 (NORMAL) E.U./dL (NORMAL)
[2022-08-08 17:53] LABS: CLARITY,URINE HAZY (CLEAR)
[2022-08-08 18:04] LABS: BACTERIA,URINE Moderate /HPF (None Seen); SQUAMOUS EPITHELIAL CELL,UR FEW Squamous (<= Few)
== END 2022-08-08 23:59 | disposition home or self-care (01) ==
LOC: LAB.N 08:00
PROVIDERS: ATTEND Nurse Practitioner Family
DX: R30.0 Dysuria (principal)
CPT/HCPCS: 81001; 87077; 87086; 87181

== ENCOUNTER 2022-08-15 10:03 | Outpatient (CLI) | payer MEDICARE, OTHER | END 2022-08-15 10:04 | disposition home or self-care (01) | LOC: LAB 10:03 | PROVIDERS: ATTEND Nurse Practitioner Family | DX: I10 Essential (primary) hypertension (principal); R30.0 Dysuria | CPT/HCPCS: 36415; 81001; 82088; 82310; 83970; 84244; 87086 ==

== ENCOUNTER 2022-08-19 08:00 | Outpatient (CLI) | payer MEDICARE, OTHER ==
[2022-08-19 13:25] LABS: BILIRUBIN,URINE NEGATIVE (NEGATIVE); GLUCOSE, URINE (UA) NEGATIVE (NEGATIVE); KETONES,URINE (UA) NEGATIVE (NEGATIVE); LEUKOCYTE ESTERASE, URINE NEGATIVE (NEGATIVE); NITRITE,URINE NEGATIVE (NEGATIVE); OCCULT BLOOD,URINE NEGATIVE (NEGATIVE); PROTEIN,URINE NEGATIVE (NEGATIVE); UROBILINOGEN,URINE 0.2 (NORMAL) E.U./dL (NORMAL)
[2022-08-19 14:13] LABS: CLARITY,URINE CLEAR (CLEAR); WBC,URINE 0-3 /HPF (0-5)
[2022-08-19 14:14] LABS: BACTERIA,URINE Few /HPF (None Seen); RBC,URINE 0-5 /HPF (0-5); SQUAMOUS EPITHELIAL CELL,UR RARE Squamous (<= Few)
== END 2022-08-19 08:01 | disposition home or self-care (01) ==
LOC: LAB 08:00
PROVIDERS: ATTEND Nurse Practitioner Family
DX: R30.0 Dysuria (principal)
CPT/HCPCS: 81001; 87086

== ENCOUNTER 2022-08-24 08:00 | Outpatient (CLI) | payer MEDICARE, OTHER | END 2022-08-24 23:59 | disposition home or self-care (01) | LOC: LAB 08:00 | PROVIDERS: ATTEND Nurse Practitioner Family | DX: I10 Essential (primary) hypertension (principal) | CPT/HCPCS: 81599; 82570; 83835 ==

== ENCOUNTER 2022-08-24 16:11 | Outpatient (CLI) | payer MEDICARE, OTHER ==
--- NOTE | 2022-08-25 13:33 | Ultrasound Report ---
PROCEDURE: Head or Neck Soft Tissue INDICATIONS: THYROID NODULE TECHNIQUE: Real-time scanning was performed of the thyroid gland, with image documentation. COMPARISON: 01/02/2020 FINDINGS: Right: Thyroid lobe measures 4.3 x 2 x 1.9 cm, and is heterogeneous in echotexture. Left: Thyroid lobe measures 4.9 x 1.6 x 1.9 cm, and is heterogeneous in echotexture. Isthmus: 5 mm thick. Nodule number: One Location: Upper pole right thyroid lobe Size: 0.7 x 0.7 x 0.8 cm, previously 0.7 x 0.7 x 0.8 cm. Composition: Solid. Echogenicity: Isoechoic. Shape: wider than tall. Margins: Smooth (0 points). Echogenic foci: None (0 points). Total points: 3 ACR TI-RADS category: Mildly suspicious.. Nodule number: Two Location: Lower pole left thyroid lobe Size: 1.4 x 1.1 x 1 cm, previously 1.5 x 1.3 x 1 cm. Composition: Solid. Echogenicity: Hypoechoic. Shape: wider than tall. Margins: Smooth (0 points). Echogenic foci: None (0 points). Total points: 4 ACR TI-RADS category: Moderately suspicious (4-6 points). Nodule number: Three Location: Lower pole left thyroid lobe Size: 1.8 x 1.1 x 1.6 cm, previously 2.1 x 1.4 x 2.2 cm. Composition: Solid. Echogenicity: Hypoechoic. Shape: wider than tall. Margins: Smooth (0 points). Echogenic foci: None (0 points). Total points: 4 ACR TI-RADS category: Moderately suspicious (4-6 points). IMPRESSION: 1. Heterogeneous thyroid parenchymal echotexture. 2. Stable mildly suspicious right thyroid lobe nodule. The 2 moderately suspicious left thyroid nodul es are smaller in size on the current study. Continued ultrasound follow-up is recommended. Fine-need le aspiration of nodule #3 can also be done if indicated. ACR TI-RADS definitions and recommendations: TI-RADS 1 (benign): 0 points. FNA not needed. TI-RADS 2 (not suspicious): 2 points. FNA not needed. TI-RADS 3 (mildly suspicious): 3 points. "FNA if 2.5 cm or larger, follow up if 1.5 cm or larger (at 1, 3, and 5 years). TI-RADS 4 (moderately suspicious): 4-6 points. "FNA if 1.5 cm or larger, follow up if 1 cm or larger (at 1, 2, 3, and 5 years). TI-RADS 5 (highly suspicious): 7 points or more. "FNA if 1 cm or larger, follow up if 0.5 cm or larger (every year for 5 years). Reviewed by: Noble Longoria MD on 08/25/2022 1:31 PM PDT Approved by: Noble Longoria MD on 08/25/2022 1:31 PM PDT Station ID: [id number]
== END 2022-08-24 16:12 | disposition home or self-care (01) ==
LOC: DI 16:11
PROVIDERS: ATTEND Nurse Practitioner Family
DX: E04.2 Nontoxic multinodular goiter (principal); I10 Essential (primary) hypertension
CPT/HCPCS: 81599; 82570; 83835

== ENCOUNTER 2022-11-16 12:53 | Outpatient (CLI) | payer MEDICARE, OTHER ==
--- NOTE | 2022-11-17 12:57 | Mammography Report ---
BILATERAL DIGITAL SCREENING MAMMOGRAM 3D/2D: 11/16/2022 CLINICAL: Routine screening. Comparison is made to exams dated: 11/22/2021 mammogram, 09/14/2020 mammogram, 12/26/2018 mammogram, 02/2018 mammogram, 12/20/2015 mammogram, and 11/26/2014 mammogram - [facility]. There are scattered areas of fibroglandular density in both breasts (category b / 25%-50% glandular t issue). There is a lymph node in the left breast posterior depth superior region seen on the mediolateral obl ique view only. This is increased in size. No other significant masses, calcifications, or other findings are seen in either breast. IMPRESSION: INCOMPLETE: NEEDS ADDITIONAL IMAGING EVALUATION The lymph node, increased in size, in the left breast is indeterminate. Additional views with possib le ultrasound are recommended. Based on the Tyrer Cuzick model (a risk assessment model) the patients lifetime risk is 5.8% and her 10 year risk is 0.0%. According to the ACR, ACS, and NCCN guidelines, an annual breast MRI exam sravanthi g with mammogram is recommended if the patients lifetime risk is 20% or greater. This exam was interpreted at Station ID: [id number]. NOTE: For mammograms, a report in lay terms will be sent to the patient. Approximately 15% of breast malignancies will not be visualized mammographically. In the management of a palpable breast mass, a negative mammogram must not discourage biopsy of a clinically suspicious lesion. Electronically Signed By: Gato Dias M.D. lc/:11/16/2022 14:06:25 ACR BI-RADS Category 0: Incomplete 3340F PARENCHYMAL PATTERN: (A) - The breast(s) demonstrate(s) scattered fibroglandular densities. BI-RADS CATEGORY: (0) - 0 Mammo and [place] [id number] Immediate follow-up LATERALITY: (B)
== END 2022-11-16 12:54 | disposition home or self-care (01) ==
LOC: DI 12:53
DX: Z12.31 Encounter for screening mammogram for malignant neoplasm of breast (principal); R59.0 Localized enlarged lymph nodes; R92.8 Other abnormal and inconclusive findings on diagnostic imaging of breast

== ENCOUNTER 2022-12-06 12:20 | Outpatient (CLI) | payer MEDICARE, OTHER ==
--- NOTE | 2022-12-07 11:33 | Mammography Report ---
UNILATERAL LEFT DIGITAL DIAGNOSTIC MAMMOGRAM 3D/2D WITH AXILLARY TAIL SPOT COMPRESSION: 12/06/2022 CLINICAL: Patient returns for additional imaging over a suspected lymph node in the left axilla. Comparison is made to exams dated: 11/16/2022 mammogram, 11/22/2021 mammogram, and 09/14/2020 mammogram - [facility]. There are scattered areas of fibroglandular density in the left breast (category b / 25%-50% glandula r tissue). There are multiple lymph nodes in the left breast posterior depth superior region seen on the mediola teral oblique view only. These are not significantly changed. No other significant masses or calcifications are seen in the breast. IMPRESSION: INCOMPLETE: NEEDS ADDITIONAL IMAGING EVALUATION The multiple lymph nodes in the left breast are indeterminate. An ultrasound is recommended for furt her evaluation and is scheduled to immediately follow this examination. Based on the Tyrer Cuzick model (a risk assessment model) the patients lifetime risk is 5.8% and her 10 year risk is 0.0%. According to the ACR, ACS, and NCCN guidelines, an annual breast MRI exam sravanthi g with mammogram is recommended if the patients lifetime risk is 20% or greater. This exam was interpreted at Station ID: [id number]. NOTE: For mammograms, a report in lay terms will be sent to the patient. Approximately 15% of breast malignancies will not be visualized mammographically. In the management of a palpable breast mass, a negative mammogram must not discourage biopsy of a clinically suspicious lesion. Electronically Signed By: Gumaro Cole M.D. aty/:12/06/2022 13:50:31 ACR BI-RADS Category 0: Incomplete 3340F PARENCHYMAL PATTERN: (A) - The breast(s) demonstrate(s) scattered fibroglandular densities. BI-RADS CATEGORY: (0) - 0 Ultrasound [id number] Immediate follow-up LATERALITY: (L)
--- NOTE | 2022-12-07 11:33 | Ultrasound Report ---
LIMITED ULTRASOUND OF LEFT BREAST AND AXILLA: 12/06/2022 CLINICAL: Patient returns today to evaluate a focal asymmetry in the left breast. Comparison is made to exams dated: 12/06/2022 mammogram, 11/16/2022 mammogram, 11/22/2021 mammogram, mammogram, 12/26/2018 mammogram, and 12/05/2017 mammogram - [facility]. Color flow and real-time ultrasound of the left breast axilla were performed. Alvarez scale images of the real-time examination were reviewed. There are normal lymph nodes in the left axilla that correlate with mammography. No significant abnormalities were seen sonographically in the left axilla. IMPRESSION: BENIGN There is no sonographic evidence of malignancy. A 1 year screening mammogram is recommended. Findings and recommendations were conveyed to the patient during today's evaluation. This exam was interpreted at Station ID: [id number]. Electronically Signed By: Gumaro Cole M.D. aty/:12/06/2022 13:52:06 Ultrasound BI-RADS: 2 Benign BI-RADS CATEGORY: (2) - 2 Mammogram [id number] 1 year screening LATERALITY: (B)
== END 2022-12-06 12:21 | disposition home or self-care (01) ==
LOC: DI 12:20
PROVIDERS: ATTEND Nurse Practitioner Family
DX: R92.8 Other abnormal and inconclusive findings on diagnostic imaging of breast (principal)

== ENCOUNTER 2023-02-27 10:36 | Outpatient (CLI) | payer MEDICARE, OTHER ==
[2023-02-27 10:47] LABS: BASOPHILS # (AUTO) 0.1 10^3/uL (0.0-0.1); BASOPHILS % (AUTO) 1.1 %; EOSINOPHILS # (AUTO) 0.4 10^3/uL (0.0-0.7); HCT - HEMATOCRIT 41.5 % (37.0-47.0); HGB - HEMOGLOBIN 13.7 g/dL (12.0-16.0); LYMPHOCYTES # (AUTO) 1.8 10^3/uL (1.5-3.5); MEAN CORPUSCULAR HEMOGLOBIN 31.7 pg (27.0-31.0); MEAN CORPUSCULAR VOLUME 96.1 fL (81.0-99.0); MEAN PLATELET VOLUME 10.6 fL (7.9-10.8); MONOCYTES # (AUTO) 0.6 10^3/uL (0.0-1.0); NEUTROPHILS # (AUTO) 4.4 10^3/uL (1.5-6.6); NEUTROPHILS % (AUTO) 59.8 %; PLT - PLATELET COUNT 260 10^3/uL (130-450); RED BLOOD COUNT 4.32 10^6/uL (4.20-5.40); RED CELL DISTRIBUTION WIDTH 14.2 % (12.0-15.0); WHITE BLOOD COUNT 7.3 x10^3/uL (4.8-10.8)
[2023-02-27 11:08] LABS: ALBUMIN 4.4 g/dL (3.2-5.5); ALBUMIN/GLOBULIN RATIO 1.6 (1.0-2.2); ALKALINE PHOSPHATASE 61 IU/L (42-121); ALT ALANINE AMINOTRANSFERASE 22 IU/L (10-60); AST ASPARTATE AMINOTRANSFERASE 21 IU/L (10-42); BILIRUBIN,TOTAL 0.5 mg/dL (0.2-1.0); BUN - BLOOD UREA NITROGEN 19 mg/dL (6-20); CARBON DIOXIDE - CO2 31 mmol/L (21-32); CHLORIDE 101 mmol/L (101-111); CHOL/HDL RATIO 2.9 (<4.4); CHOLESTEROL 153 mg/dL; CREATININE 1.1 mg/dL (0.6-1.3); GFR - MDRD 48 (>89); GLUCOSE 125 mg/dL (74-104); HDL CHOLESTEROL 52 mg/dL; LDL CHOLESTEROL,CALCULATED 59 mg/dL; LDL/HDL RATIO 1.1 (<4.4); POTASSIUM 4.3 mmol/L (3.5-4.5); SODIUM 138 mmol/L (135-145); TOTAL PROTEIN 7.2 g/dL (6.4-8.9); TRIGLYCERIDES 211 mg/dL (48-352); VLDL CHOLESTEROL 42 mg/dL
[2023-02-27 11:38] LABS: ESTIMATED AVERAGE GLUCOSE 137 mg/dL (70-100); HEMOGLOBIN A1c% 6.4 % (4.27-6.07)
== END 2023-02-27 10:37 | disposition home or self-care (01) ==
LOC: LAB 10:36
PROVIDERS: ATTEND Nurse Practitioner Family
DX: E11.22 Type 2 diabetes mellitus with diabetic chronic kidney disease (principal); N18.31 Chronic kidney disease, stage 3a; E78.5 Hyperlipidemia, unspecified
CPT/HCPCS: 36415; 80053; 80061; 83036; 83721; 85025

== ENCOUNTER 2023-06-01 14:22 | Outpatient (CLI) | payer MEDICARE, OTHER ==
--- NOTE | 2023-06-01 15:09 | Sleep Patient Instructions ---
Sleep Center Visit Summary - Patient Visit Information Reason for Visit: Initial consultation - Patient Instructions Additional Instructions: You will continue with CPAP therapy with pressure set at 16-20 cmH2O. A supply prescription will be updated with your DME. We encourage you to continue to try to lose weight. Please follow up with the sleep care office in 1 year. - Clinic Information Contact: [facility] [address] [place] [address] [email or web address] T: [phone]
--- NOTE | 2023-06-01 15:16 | SLEEP CARE CONSULTATION ---
Information from patient questionnaire entered by Luiza Mccarthy. I have reviewed and concur with the information entered by Luiza Mccarthy. This document represents the service I personally performed and the decisions made by , Carolyn Ghosh ARNP. History of Present Illness Service Date and Time: 06/01/2023 1422 Reason for Visit: New patient, Previously diagnosed sleep apnea, sleep apnea on CPAP therapy Chief Complaint: reports: Other (UPDATE SUPPLIES) Date of Onset: 2002 Usual bedtime: 10-11PM Time it takes to fall asleep: VARIES Snores at night: Yes Observed to quit breathing while asleep: No Number of times waking at night: 1-3 Reasons for waking at night: reports: Bathroom, Other (AIR NOISE) Toss, Turn, or Twitch while sleeping: No Recalls having dreams: No Usually gets out of bed at: 7-9AM Feels refreshed in the morning: Yes Morning headache: No Sleepy or fatigued during the day: Yes Ever fallen asleep while driving: No Takes day naps: No Dreams during day naps: No Prior sleep studies: Yes Year and Where: [facility] and [facility] Additional HPI information: NIURKA RAMIREZ was previously diagnosed to have unknown, AHI unknown, obstructive sleep apnea-hypopnea syndrome and comes in today to establish care for CPAP therapy. We have seen her in our office, the last appointment was in 2011. It documented severe obstructive sleep apnea, AHI 51. I could not find a copy of this sleep study. - Parasomnia Symptoms Ever been unable to move upon waking from sleep: No Walks in sleep: No Talks in sleep: No Ever acted out dreams in sleep: No Ever felt weak in the knees when startled or emotional: No Bothered by creepy, crawly, restless sensations in legs: Yes Problems with memory or concentration: Yes CPAP Compliance Data - Data Reviewed with Patient Average duration of nightly device use: 6 hours 54 minutes Compliance rate %: 96.2 (06/01/22-05/31/23; 365/365 days used) Current pressure setting (cmH2O): 16-20 (90% avg pressure used at 20) Average residual AHI: 14.5 Central apnea: 0.6 Obstructive apnea: 10.5 Hypopnea: 3.4 Average large leak: 3 mins 5 secs Compliance data discussion: She has a Dreamstation 2 that was replacement for recalled machine. She is getting her supplies from [place]. She is using a ResMed AirFit F30i, small cushion. Subjective Patient concerns: reports: dry mouth, nose, throat (dry mouth). denies: aerophagia, mask discomfort, air blowing in eyes, mask leak noise, condensation in mask/hose, nasal congestion, epistaxis Observed to snore while using device: No Current pressure setting perceived as: comfortable On therapy, patient: reports: other (thinks she sleeps better without it). 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 Patient is / and lives in . Have you smoked in the past 12 months: No Alcohol use: Yes Alcohol amount and frequency: 1-2 TIMES A MONTH Caffeine use: Yes Caffeine amount and frequency: BREAKFAST AND LUNCH HOT TEA ICED TEA Family History Family Hx Sleep Apnea: Father: Snoring (SON), Sibling: Snoring, Other: Snoring, Sleep apnea - Treated (SON) Allergies and Home Medications Known drug allergies: Yes (as listed) Drug allergies reviewed: Yes Home medication list reviewed: Yes (as listed) Allergy and home medication list: Allergies latex Allergy (Mild, Verified 05/24/23 15:51) Rash pollen extracts Allergy (Mild, Verified 05/24/23 15:51) Respiratory Sulfa (Sulfonamide Antibiotics) Allergy (Mild, Verified 05/24/23 15:51) Rash Home Medications Medication Instructions Recorded Confirmed Last Taken Type Fluticasone [Flonase] 1 spray ANNA BID 01/06/14 06/01/23 01/12/22 History Gabapentin 600 mg PO BID 01/06/14 06/01/23 01/12/22 History Levothyroxine [Synthroid] 75 mcg PO QDAC 01/06/14 06/01/23 01/12/22 History Metformin HCl [Glucophage] 1,000 mg ORAL BID 01/06/14 06/01/23 01/12/22 History Atorvastatin Calcium 40 mg PO QPM 09/27/21 06/01/23 01/12/22 History Latanoprost 0.005% Ophth Drops 1 drops EACHEYE QPM 09/27/21 06/01/23 01/12/22 History [Xalatan Ophth Drops] Omeprazole Magnesium 20 mg PO BIDAC 09/27/21 06/01/23 12/30/21 History Oxybutynin [Ditropan] 5 mg PO BID 09/27/21 06/01/23 01/12/22 History Verapamil ER [Calan SA] 180 mg PO BID 09/27/21 06/01/23 01/12/22 History lisinopriL [Lisinopril] 40 mg PO DAILY 09/27/21 06/01/23 01/12/22 History Cyclobenzaprine [Flexeril] 10 mg PO TID PRN #15 tablet 09/30/21 01/13/22 10/15/21 Rx carvediloL [Coreg] 3.125 mg PO BID 01/13/22 06/01/23 01/12/22 History Ascorbic Acid [Vitamin C] See Rx Instructions .ROUTE .COMPLEX 06/01/23 06/01/23 Unknown History Calcium Carbonate [Calcium] See Rx Instructions .ROUTE .COMPLEX 06/01/23 06/01/23 Unknown History Docusate Sodium [Stool Softener] See Rx Instructions .ROUTE .COMPLEX 06/01/23 06/01/23 Unknown History Multivitamin with Minerals [Hair, See Rx Instructions .ROUTE .COMPLEX 06/01/23 06/01/23 Unknown History Skin and Nails] [place]-3/Dha/Epa/Fish Oil [Fish Oil See Rx Instructions .ROUTE .COMPLEX 06/01/23 06/01/23 Unknown History 1,000 mg Softgel] Vit A/Vit C/Vit E/Zinc/Copper See Rx Instructions .ROUTE .COMPLEX 06/01/23 06/01/23 Unknown History [Preservision Areds Softgel] Review of Systems Cardiovascular: reports: high blood pressure Gastrointestinal: denies: heartburn Urinary: reports: urgency Neurological: denies: headaches Psychiatric: reports: anxiety. denies: depression Ear/Nose/Throat: reports: sinus problems, dry mouth/throat, wisdom teeth removed. denies: tonsillectomy Endocrine: reports: thyroid disease, excessive thirst Musculoskeletal: reports: neck pain Immunologic: reports: sneezing, itching, allergies to food or environment (pollen extracts) Physical Exam Vital signs obtained and entered by: LUIZA Nielsen MA Blood Pressure: 175/95 (LEFT ARM) Cuff size: regular Heart Rate: 62 O2 Saturation: 97 Height: 5 ft 7 in Weight: 192 lb Body Mass Index: 30.0 BMI Classification: Obese Neck circumference: 15.5 Heart: regular rate and rhythm Lungs: clear bilaterally Impression and Plan 1. Obstructive Sleep Apnea-Hypopnea Syndrome, unknown, with good treatment compliance and fair apnea control with elevated residual AHI. On CPAP therapy, the patient does not feel that she sleeps better with the CPAP but she wears it to safeguard her health. Patient has significant improvement of her sleep apnea however her therapy is somewhat ineffective with an elevated AHI. I discussed with patient's trying to do a titration study but she declines doing a study at this time. She does not currently have a copy of her last sleep study but thinks it was done recently through her last sleep provider in [place]. We will reach out to them to try to get a copy of that sleep study. I will continue the pressure since she does not want to do a titration study at this time at 16-20 cm H2O. As soon as we have a copy of her last sleep study, I will update her supply prescription with her DME, Amy. Patient's apnea severity and rationale for treatment to reduce apnea, improve sleep quality and reduce cardiovascular and cerebrovascular events was reviewed. I also reviewed the benefit of consistent device use of CPAP for hypertension, diabetes, anxiety, RLS. 2. Obesity, unspecified. Currently patients BMI is 30. Obesity increases the risk of apnea, CPAP pressure requirements and overall health risks especially cardiovascular and diabetes. Thus patient is advised to lose weight. * Continue auto CPAP pressure at 16-20 cmH2O * Update supply prescription after obtaining copy of last sleep study * Notify me if snoring with mask or feeling that the pressure is too much or too little * Attempt to lose weight * Call this office if any problems using CPAP * Return for follow up in 12 months, or sooner if concerns arise Continue with device pressure at (cmH2O): 16-20 Counseling Topics: Spare mask, Weight loss health impact Prescriptions: Device supplies Follow up with Sleep Care in: 1 year Visit Type: In Office Time Spent with Patient (minutes): 36 Provider Statement: I spent 100% of the Face to Face Visit with the patient with greater than 50% spent counseling the patient and coordination of care.
[2023-06-01 15:33] VITALS: BP 175/95; O2SAT 97
== END 2023-06-01 14:23 | disposition home or self-care (01) ==
LOC: SC 14:22
PROVIDERS: ATTEND Nurse Practitioner Family
DX: G47.33 Obstructive sleep apnea (adult) (pediatric) (principal); E66.9 Obesity, unspecified; Z68.30 Body mass index [BMI] 30.0-30.9, adult
CPT/HCPCS: 99213; G0463; 99212

== ENCOUNTER 2023-08-02 08:10 | Outpatient (CLI) | payer MEDICARE, OTHER ==
[2023-08-02 08:38] LABS: ALBUMIN/GLOBULIN RATIO 1.5 (1.0-2.2); ALKALINE PHOSPHATASE 40 IU/L (42-121); ALT ALANINE AMINOTRANSFERASE 18 IU/L (10-60); AST ASPARTATE AMINOTRANSFERASE 20 IU/L (10-42); BILIRUBIN,TOTAL 0.5 mg/dL (0.2-1.0); BUN - BLOOD UREA NITROGEN 20 mg/dL (6-20); CALCIUM 9.8 mg/dL (8.5-10.3); CARBON DIOXIDE - CO2 30 mmol/L (21-32); CHLORIDE 105 mmol/L (101-111); CHOL/HDL RATIO 2.4 (<4.4); CHOLESTEROL 145 mg/dL; CREATININE 1.2 mg/dL (0.6-1.3); GFR - MDRD 43 (>89); GLUCOSE 128 mg/dL (74-104); HDL CHOLESTEROL 61 mg/dL; LDL CHOLESTEROL,CALCULATED 60 mg/dL; POTASSIUM 4.1 mmol/L (3.5-4.5); SODIUM 140 mmol/L (135-145); TOTAL PROTEIN 6.6 g/dL (6.4-8.9); TRIGLYCERIDES 121 mg/dL (48-352); VLDL CHOLESTEROL 24 mg/dL
[2023-08-02 08:42] LABS: BASOPHILS # (AUTO) 0.1 10^3/uL (0.0-0.1); BASOPHILS % (AUTO) 0.9 %; EOSINOPHILS # (AUTO) 0.3 10^3/uL (0.0-0.7); EOSINOPHILS % (AUTO) 4.4 %; HCT - HEMATOCRIT 38.7 % (37.0-47.0); HGB - HEMOGLOBIN 12.5 g/dL (12.0-16.0); LYMPHOCYTES # (AUTO) 2.2 10^3/uL (1.5-3.5); LYMPHOCYTES % (AUTO) 37.4 %; MEAN CORPUSCULAR HEMOGLOBIN 31.7 pg (27.0-31.0); MEAN CORPUSCULAR HGB CONC 32.3 g/dL (32.0-36.0); MEAN CORPUSCULAR VOLUME 98.2 fL (81.0-99.0); MEAN PLATELET VOLUME 11.5 fL (7.9-10.8); MONOCYTES # (AUTO) 0.5 10^3/uL (0.0-1.0); MONOCYTES % (AUTO) 9.2 %; NEUTROPHILS # (AUTO) 2.8 10^3/uL (1.5-6.6); NEUTROPHILS % (AUTO) 47.9 %; PLT - PLATELET COUNT 202 10^3/uL (130-450); RED BLOOD COUNT 3.94 10^6/uL (4.20-5.40); RED CELL DISTRIBUTION WIDTH 14.9 % (12.0-15.0); WHITE BLOOD COUNT 5.9 x10^3/uL (4.8-10.8)
[2023-08-02 08:53] LABS: THYROID STIMULATING HORMONE 4.54 uIU/mL (0.34-5.60)
[2023-08-02 09:20] LABS: ESTIMATED AVERAGE GLUCOSE 140 mg/dL (70-100); HEMOGLOBIN A1c% 6.5 % (4.27-6.07)
== END 2023-08-02 08:11 | disposition home or self-care (01) ==
LOC: LAB 08:10
PROVIDERS: ATTEND Nurse Practitioner Family
DX: E11.22 Type 2 diabetes mellitus with diabetic chronic kidney disease (principal); N18.31 Chronic kidney disease, stage 3a; E78.5 Hyperlipidemia, unspecified; E78.00 Pure hypercholesterolemia, unspecified; E03.9 Hypothyroidism, unspecified
CPT/HCPCS: 36415; 80053; 80061; 83036; 83721; 84443; 85025

== ENCOUNTER 2023-08-30 17:04 | Emergency (ER) | payer MEDICARE, OTHER ==
[2023-08-30 17:27] VITALS: BP 160/80; O2SAT 98
--- NOTE | 2023-08-30 17:45 | ED Physician Documentation ---
PD HPI LOWER EXT INJURY - Stated complaint Stated Complaint: RT KNEE PX - Chief complaint Chief Complaint: Ext Problem - History obtained from History obtained from: Patient - Additional information Additional information: About 2 months ago she feels like she pivoted wrong and injured her knee and has persistent pain mostly in the lateral joint. Worse over the last few days. 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: Dilation and currettage Cardiovascular: Other HEENT: Cataracts, Other - Present Medications Home Medications: Ambulatory Orders Medication Instructions Recorded Confirmed Fluticasone [Flonase] 1 spray ANNA BID 01/06/14 06/01/23 Gabapentin 600 mg PO BID 01/06/14 06/01/23 Levothyroxine [Synthroid] 75 mcg PO QDAC 01/06/14 06/01/23 Metformin HCl [Glucophage] 1,000 mg ORAL BID 01/06/14 06/01/23 Atorvastatin Calcium 40 mg PO QPM 09/27/21 06/01/23 Latanoprost 0.005% Ophth Drops 1 drops EACHEYE QPM 09/27/21 06/01/23 [Xalatan Ophth Drops] Omeprazole Magnesium 20 mg PO BIDAC 09/27/21 06/01/23 Oxybutynin [Ditropan] 5 mg PO BID 09/27/21 06/01/23 Verapamil ER [Calan SA] 180 mg PO BID 09/27/21 06/01/23 lisinopriL [Lisinopril] 40 mg PO DAILY 09/27/21 06/01/23 Cyclobenzaprine [Flexeril] 10 mg PO TID PRN #15 tablet 09/30/21 01/13/22 carvediloL [Coreg] 3.125 mg PO BID 01/13/22 06/01/23 Aloe Vera See Rx Instructions .ROUTE .COMPLEX 06/01/23 06/01/23 Ascorbic Acid [Vitamin C] See Rx Instructions .ROUTE .COMPLEX 06/01/23 06/01/23 Calcium Carbonate [Calcium] See Rx Instructions .ROUTE .COMPLEX 06/01/23 06/01/23 Docusate Sodium [Stool Softener] See Rx Instructions .ROUTE .COMPLEX 06/01/23 06/01/23 Fexofenadine [Farida] See Rx Instructions .ROUTE .COMPLEX 06/01/23 06/01/23 Ibuprofen See Rx Instructions .ROUTE .COMPLEX 06/01/23 06/01/23 Lactobacillus Combination No.4 See Rx Instructions .ROUTE .COMPLEX 06/01/23 06/01/23 [Probiotic] Magnesium See Rx Instructions .ROUTE .COMPLEX 06/01/23 06/01/23 Multivitamin with Minerals [Hair, See Rx Instructions .ROUTE .COMPLEX 06/01/23 06/01/23 Skin and Nails] [place]-3/Dha/Epa/Fish Oil [Fish Oil See Rx Instructions .ROUTE .COMPLEX 06/01/23 06/01/23 1,000 mg Softgel] Psyllium Husk [Fiber] See Rx Instructions .ROUTE .COMPLEX 06/01/23 06/01/23 Tart Bustillos Extract See Rx Instructions .ROUTE .COMPLEX 06/01/23 06/01/23 Vit A/Vit C/Vit E/Zinc/Copper See Rx Instructions .ROUTE .COMPLEX 06/01/23 06/01/23 [Preservision Areds Softgel] Vit B2/Niacin/B6/B12/Dexpanth [B See Rx Instructions .ROUTE .COMPLEX 06/01/23 06/01/23 Complex Sublingual Liquid] glucosamine HCL [Glucosamine HCl] See Rx Instructions .ROUTE .COMPLEX 06/01/23 06/01/23 - Allergies Allergies/Adverse Reactions: Allergies Allergy/AdvReac Type Severity Reaction Status Date / Time latex Allergy Mild Rash Verified 08/30/23 17:19 pollen extracts Allergy Mild Respiratory Verified 08/30/23 17:19 Sulfa (Sulfonamide Allergy Mild Rash Verified 08/30/23 17:19 Antibiotics) - Social History Does the pt smoke?: No Smoking Status: Never smoker Does the pt drink ETOH?: No Does the pt have substance abuse?: No - Immunizations Immunizations are current?: Yes - POLST Patient has POLST: No POLST Status: Full Code PD ED PE NORMAL - Vitals Vital signs reviewed: Yes - General General: Alert and oriented X 3, No acute distress - Derm Derm: Normal color, Warm and dry - Extremities Extremities: Other (Mild tenderness over the lateral joint line of the right knee. No clinical effusion. ACL, PCL, LCL, MCL testing is intact and painless. Negative grind testing. No warmth or redness.) - Neuro Neuro: Alert and oriented X 3, Normal speech Results - Vitals Vitals: Vital Signs - 24 hr 08/30/23 17:19 Temperature 36.8 C Heart Rate 56 L Respiratory 16 Rate Blood Pressure 160/80 H O2 Saturation 98 Oxygen O2 Source Room air - Rads (name of study) R knee XR Relevant Findings:: Final report received (Moderate tricompartmental osteoarthritis with associated osteophyte ), EMP independent interpretation of test (The posterolateral calcification to my eye could have been an avulsion fracture with signs of healing since her original injury was 2 months ago.) PD Medical Decision Making - ED course ED course: She presents with persistent right knee pain after a minor injury 2 months ago. The x-ray read by the radiologist as having osteoarthritis with osteophytes. There is a large calcification that is somewhat irregular on the posterolateral side of the knee which I do wonder if that was an avulsion fracture with signs of partial healing since the original injury was 2 months ago. She was placed in a knee immobilizer and recommended partial weight bearing with a walker (she has 1 at home) pending follow-up with orthopedics. Departure - Departure Disposition: 01 Home, Self Care Clinical Impression: Knee fracture, right Condition: Good Record reviewed to determine appropriate education?: Yes Instructions: ED Fx Knee Follow-Up: Orthopedic Care [Provider Group] - Within 1 week Comments: As discussed, it appears that you probably have a chip fracture/avulsion fracture of your knee from twisting on 2 months ago and it really has not healed. Wear the knee immobilizer fairly religiously except and better while bathing and follow-up with the orthopedics clinic. Tylenol and/or ibuprofen as needed for pain. Take most of the weight off that knee with a walker. Return if worse. Forms: PCP List Discharge Date/Time: 08/30/23 18:43
--- NOTE | 2023-08-30 18:11 | XRAY Report ---
PROCEDURE: Knee 4+V RT INDICATIONS: Trauma TECHNIQUE: 4 views of the knee(s) were acquired. COMPARISON: None. FINDINGS: Bones: No fractures or dislocations. No suspicious bony lesions. Tricompartmental joint space gerda rowing with associated osteophytosis. Soft tissues: No knee joint effusion. No suspicious soft tissue calcifications or masses. IMPRESSION: No displaced fracture or significant joint effusion. Mild to moderate tricompartmental osteoarthritis. Kellgren-Noe scale of osteoarthritis: 2. Reviewed by: Roosevelt Aiken MD on 08/30/2023 6:09 PM PDT Approved by: Roosevelt Aiken MD on 08/30/2023 6:09 PM PDT Station ID: [id number]
== END 2023-08-30 18:43 | disposition home or self-care (01) ==
LOC: ED 17:04
DX: S82.091A Other fracture of right patella, initial encounter for closed fracture (principal); X58.XXXA Exposure to other specified factors, initial encounter
CPT/HCPCS: 99283; 99284

== ENCOUNTER 2023-09-05 15:40 | Outpatient (CLI) | payer MEDICARE, OTHER ==
--- NOTE | 2023-09-05 17:29 | XRAY Report ---
PROCEDURE: Knee 4+V RT INDICATIONS: RIGHT KNEE PAIN TECHNIQUE: 4 views of the knee(s) were acquired. COMPARISON: 08/30/2023 FINDINGS: Bones: No fractures or dislocations. Mild symmetric medial compartment joint space loss No suspiciou s bony lesions. Soft tissues: Small knee joint effusion. No suspicious soft tissue calcifications or masses. IMPRESSION: No visible fractures. New small joint effusion, uncertain etiology. Reviewed by: Ning Jhaveri MD on 09/05/2023 5:28 PM PDT Approved by: Ning Jhaveri MD on 09/05/2023 5:28 PM PDT Station ID: [id number]
== END 2023-09-05 15:41 | disposition home or self-care (01) ==
LOC: DI 15:40
PROVIDERS: ATTEND Physician Assistant Surgical
DX: M25.561 Pain in right knee (principal); M25.461 Effusion, right knee

== ENCOUNTER 2023-09-28 15:28 | Emergency (ER) | payer MEDICARE, OTHER ==
--- NOTE | 2023-09-28 18:54 | ED Physician Documentation ---
History of Present Illness - Stated complaint Stated Complaint: LT LEG SWELLING - Chief complaint Chief Complaint: General - Additonal information Additional information: 78-year-old female presents with left leg swelling. Recent identification of a minimally traumatic right distal femoral avulsion fracture. Has been ambulatory and weightbearing with brace on right leg. Developed increased swelling as well as varicosities to the left leg over the course of the last several days. No hospitalizations, surgeries, history of blood clots. Review of Systems Constitutional: denies: Fever Eyes: denies: Loss of vision Ears: denies: Loss of hearing Nose: denies: Rhinorrhea / runny nose Throat: denies: Dental pain / toothache Cardiac: denies: Chest pain / pressure GI: denies: Abdominal Pain : denies: Dysuria Skin: denies: Rash Musculoskeletal: denies: Neck pain 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 Cardiovascular: Other HEENT: Cataracts, Other - Present Medications Home Medications: Ambulatory Orders Medication Instructions Recorded Confirmed Fluticasone [Flonase] 1 spray ANNA BID 01/06/14 06/01/23 Gabapentin 600 mg PO BID 01/06/14 06/01/23 Levothyroxine [Synthroid] 75 mcg PO QDAC 01/06/14 06/01/23 Metformin HCl [Glucophage] 1,000 mg ORAL BID 01/06/14 06/01/23 Atorvastatin Calcium 40 mg PO QPM 09/27/21 06/01/23 Latanoprost 0.005% Ophth Drops 1 drops EACHEYE QPM 09/27/21 06/01/23 [Xalatan Ophth Drops] Omeprazole Magnesium 20 mg PO BIDAC 09/27/21 06/01/23 Oxybutynin [Ditropan] 5 mg PO BID 09/27/21 06/01/23 Verapamil ER [Calan SA] 180 mg PO BID 09/27/21 06/01/23 lisinopriL [Lisinopril] 40 mg PO DAILY 09/27/21 06/01/23 Cyclobenzaprine [Flexeril] 10 mg PO TID PRN #15 tablet 09/30/21 01/13/22 carvediloL [Coreg] 3.125 mg PO BID 01/13/22 06/01/23 Aloe Vera See Rx Instructions .ROUTE .COMPLEX 06/01/23 06/01/23 Ascorbic Acid [Vitamin C] See Rx Instructions .ROUTE .COMPLEX 06/01/23 06/01/23 Calcium Carbonate [Calcium] See Rx Instructions .ROUTE .COMPLEX 06/01/23 06/01/23 Docusate Sodium [Stool Softener] See Rx Instructions .ROUTE .COMPLEX 06/01/23 06/01/23 Fexofenadine [Farida] See Rx Instructions .ROUTE .COMPLEX 06/01/23 06/01/23 Ibuprofen See Rx Instructions .ROUTE .COMPLEX 06/01/23 06/01/23 Lactobacillus Combination No.4 See Rx Instructions .ROUTE .COMPLEX 06/01/23 06/01/23 [Probiotic] Magnesium See Rx Instructions .ROUTE .COMPLEX 06/01/23 06/01/23 Multivitamin with Minerals [Hair, See Rx Instructions .ROUTE .COMPLEX 06/01/23 06/01/23 Skin and Nails] [place]-3/Dha/Epa/Fish Oil [Fish Oil See Rx Instructions .ROUTE .COMPLEX 06/01/23 06/01/23 1,000 mg Softgel] Psyllium Husk [Fiber] See Rx Instructions .ROUTE .COMPLEX 06/01/23 06/01/23 Tart Bustillos Extract See Rx Instructions .ROUTE .COMPLEX 06/01/23 06/01/23 Vit A/Vit C/Vit E/Zinc/Copper See Rx Instructions .ROUTE .COMPLEX 06/01/23 06/01/23 [Preservision Areds Softgel] Vit B2/Niacin/B6/B12/Dexpanth [B See Rx Instructions .ROUTE .COMPLEX 06/01/23 06/01/23 Complex Sublingual Liquid] glucosamine HCL [Glucosamine HCl] See Rx Instructions .ROUTE .COMPLEX 06/01/23 06/01/23 - Allergies Allergies/Adverse Reactions: Allergies Allergy/AdvReac Type Severity Reaction Status Date / Time latex Allergy Mild Rash Verified 09/28/23 15:50 pollen extracts Allergy Mild Respiratory Verified 09/28/23 15:50 Sulfa (Sulfonamide Allergy Mild Rash Verified 09/28/23 15:50 Antibiotics) - Social History Does the pt smoke?: No Smoking Status: Never smoker Does the pt drink ETOH?: No Does the pt have substance abuse?: No - Immunizations Immunizations are current?: Yes - POLST Patient has POLST: No POLST Status: Full Code PD ED PE NORMAL - General General: Alert and oriented X 3, No acute distress, Well developed/nourished - HEENT HEENT: Atraumatic, PERRL, EOMI, Ears normal - Neck Neck: Supple, no meningeal sign - Cardiac Cardiac: RRR, No gallop - Respiratory Respiratory: No respiratory distress, Clear bilaterally - Abdomen Abdomen: Normal bowel sounds, Non tender - Female Female : Deferred - Rectal Rectal: Deferred - Back Back: No CVA TTP - Derm Derm: Normal color - Extremities Extremities: Other (Significant pitting edema to the left lower extremity extending to mid thigh.) Results - Vitals Vitals: Vital Signs - 24 hr 09/28/23 15:51 Temperature 36.7 C Heart Rate 51 L Respiratory 16 Rate Blood Pressure 173/83 H O2 Saturation 98 Oxygen O2 Source Room air PD Medical Decision Making - ED course Complexity details: considered differential, d/w patient ED course: 78-year-old female presents with significant new onset swelling to left lower extremity. No history of trauma. Is able to ambulate with the leg without difficulty. No pain with flexion extension at hip, knee, ankle. Easily palpable pulses. No indications neurovascular compromise. Differential diagnosis does include DVT and I have ordered for ultrasonography. Will be signing out to the oncoming physician, please see their documentation for further detail. Departure - Departure
[2023-09-28 19:04] VITALS: BP 183/70; O2SAT 97
--- NOTE | 2023-09-28 19:33 | Ultrasound Report ---
PROCEDURE: Duplex Ext Veins Left INDICATIONS: LLE Swelling TECHNIQUE: Real-time imaging, as well as color and pulse Doppler interrogation, were performed of the lower extr emity deep veins from the inguinal ligament to the popliteal fossa. Attempted visualization of the ca lf veins was performed. COMPARISON: None. FINDINGS: The deep veins are normally compressible, and free of intraluminal thrombus. Color and pu lse Doppler demonstrate normal phasic intraluminal flow. There is normal augmentation response to di stal compression maneuver. IMPRESSION: No deep venous thrombosis of the visualized lower extremity. Reviewed by: Irma Simmons MD on 09/28/2023 7:31 PM PDT Approved by: Irma Simmons MD on 09/28/2023 7:31 PM PDT Station ID: [id number]
--- NOTE | 2023-09-28 19:45 | ED Physician Documentation ---
ED Addendum - Addendum Addendum: 09/28/23 19:44 Patient endorsed to me by Dr. Ferris awaiting ultrasound results. Her ultrasound is negative and plan is to discharge her home to follow-up with her primary care provider. Return precautions given. Disposition Home Impression 1 leg swelling Condition stable
== END 2023-09-28 20:01 | disposition home or self-care (01) ==
LOC: ED 15:28
DX: R60.0 Localized edema (principal); S72.421A Displaced fracture of lateral condyle of right femur, initial encounter for closed fracture; M25.461 Effusion, right knee; M76.891 Other specified enthesopathies of right lower limb, excluding foot; M17.11 Unilateral primary osteoarthritis, right knee
CPT/HCPCS: 99283; 99284

== ENCOUNTER 2023-10-05 13:04 | Outpatient (CLI) | payer MEDICARE, OTHER ==
--- NOTE | 2023-10-05 16:21 | Ultrasound Report ---
PROCEDURE: Soft Tissue Head or Neck INDICATIONS: THYROID NODULE TECHNIQUE: Real-time scanning was performed of the thyroid gland, with image documentation. COMPARISON: 08/24/2022 FINDINGS: Right: Thyroid lobe measures 4.4 x 2.3 x 1.6 cm. Left: Thyroid lobe measures 4 x 2 x 1.3 cm Isthmus: 0.3 cm thick. Right superior nodule measures 6 mm this does not require dedicated follow-up, stable. Left lower nodule measuring 11 x 13 x 10 mm, similar to prior. This is solid and hypoechoic. TR 4. A second left lower lobe nodule measures 16 x 18 x 12 mm, similar to prior. This is solid and isoecho ic. TR 3. IMPRESSION: Stable thyroid nodules as described above. Follow-up is suggested for the left-sided nod ules, per TI RADS criteria (see below). (Below) ACR TI-RADS definitions and recommendations: TI-RADS 1 (benign): 0 points. FNA not needed. TI-RADS 2 (not suspicious): 2 points. FNA not needed. TI-RADS 3 (mildly suspicious): 3 points. "FNA if 2.5 cm or larger, follow up if 1.5 cm or larger (at 1, 3, and 5 years). TI-RADS 4 (moderately suspicious): 4-6 points. "FNA if 1.5 cm or larger, follow up if 1 cm or larger (at 1, 2, 3, and 5 years). TI-RADS 5 (highly suspicious): 7 points or more. "FNA if 1 cm or larger, follow up if 0.5 cm or larger (every year for 5 years). Reviewed by: Gato Dias MD on 10/05/2023 4:19 PM PDT Approved by: Gato Dias MD on 10/05/2023 4:19 PM PDT Station ID: [id number]
== END 2023-10-05 13:05 | disposition home or self-care (01) ==
LOC: DI 13:04
PROVIDERS: ATTEND Nurse Practitioner Family
DX: E04.2 Nontoxic multinodular goiter (principal); E03.9 Hypothyroidism, unspecified

== ENCOUNTER 2023-10-17 15:14 | Outpatient (CLI) | payer MEDICARE, OTHER ==
[2023-10-17 15:58] LABS: ALBUMIN 4.1 g/dL (3.2-5.5); ALBUMIN/GLOBULIN RATIO 1.5 (1.0-2.2); BILIRUBIN,TOTAL 0.5 mg/dL (0.2-1.0); CALCIUM 10.1 mg/dL (8.5-10.3); POTASSIUM 4.2 mmol/L (3.5-4.5); TOTAL PROTEIN 6.9 g/dL (6.4-8.9)
== END 2023-10-17 15:15 | disposition home or self-care (01) ==
LOC: LAB 15:14
PROVIDERS: ATTEND Family Medicine
DX: R22.43 Localized swelling, mass and lump, lower limb, bilateral (principal)
CPT/HCPCS: 36415; 80053; 83880

== ENCOUNTER 2023-11-04 11:48 | Outpatient (CLI) | payer OTHER, MEDICARE | END 2023-11-04 11:49 | disposition critical access hospital (66) | LOC: EMS 11:48 | DX: R07.89 Other chest pain (principal); S80.211A Abrasion, right knee, initial encounter; V49.40XA Driver injured in collision with unspecified motor vehicles in traffic accident, initial encounter; Y92.413 State road as the place of occurrence of the external cause | CPT/HCPCS: A0425; A0429 ==

== ENCOUNTER 2023-11-04 12:15 | Emergency (ER) | payer OTHER, MEDICARE ==
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
[2023-11-04] MEDS: ACETAMINOPHEN 500 MG TABLET PO STA (12:34)
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
[2023-11-04 14:43] VITALS: BP 140/80; O2SAT 98
== END 2023-11-04 14:39 | disposition home or self-care (01) ==
LOC: EDUNIT# → ED 12:15
DX: S00.83XA Contusion of other part of head, initial encounter (principal); S20.214A Contusion of middle front wall of thorax, initial encounter; M54.2 Cervicalgia; V89.2XXA Person injured in unspecified motor-vehicle accident, traffic, initial encounter
CPT/HCPCS: 70450; 71250; 72125; 99283; 99284; A9270